=== PATIENT | female | born 2000 | race Caucasian/White ===

== ENCOUNTER 2023-12-31 20:00 | Emergency (ER) | payer OTHER, BC, SELFPAY ==
[2023-12-31 20:05] VITALS: BP 132/78; PULSE 105; RESP 20; TEMP 36.7; O2SAT 99; BMI 22.5
--- NOTE | 2023-12-31 20:05 | ED.GENADULT ---
HPI - General Adult General Date Seen: 12/31/23 Chief complaint: Extremity Pain/Injury, Upper Stated complaint: Right index finger pain Time Seen by Provider: 12/31/23 20:05 History of Present Illness HPI narrative: This is a pleasant 23-year-old generally healthy female presenting to the ER today for evaluation of an injury to her right hand 2nd digit. She is right-hand dominant. She works at [employer]. She accidentally got her PIP joint of her right index finger caught between a metal door when she was trying to close it at work today at roughly 4:00 p.m.. It was slammed hard in the door. She had onset of pain in the proximal phalanges and PIP joint at that time. She tried to armen tape her finger in keep working but it kept getting caught on things and getting bumped it is very painful. She took ibuprofen which is not helping very much yet. She only took 1 ibuprofen tablet, being unsure how much other meds we might want her to take. The finger has developed swelling and bruising around the PIP joint so she came here to the ER. She is concerned it is probably broken. No other injuries. Related Data Home Medications Medication Instructions Recorded Confirmed No Known Home Medications 12/31/23 12/31/23 Allergies Allergy/AdvReac Type Severity Reaction Status Date / Time No Known Drug Allergies Allergy Verified 12/31/23 20:08 Exam Narrative: Exam Narrative: Constitutional: Appears well-developed and well-nourished. Alert. Conversant. Non toxic. HENT: Head: Atraumatic. Nose: Nose normal. Mouth/Throat: Oral mucosa is clear and moist. no trismus. Eyes: Conjunctivae normal. EOM normal. Pupils equal, round, and reactive to light. No scleral icterus. Neck: Normal range of motion. Neck supple. No tracheal deviation present. Cardiovascular: Normal rate, regular rhythm. Symmetric radial artery pulses Pulmonary/Chest: Effort normal. No stridor. No respiratory distress. Musculoskeletal: RUE: Patient has ecchymosis and swelling affecting the proximal phalange and PIP joint of her right hand 2nd digit (index finger). She is holding that joint flexed at about 30?. Range of motion is limited by pain. She is not having any pain over the MCP joint area D IP joint. No associated numbness. No bleeding or laceration. Otherwise remainder of hand, thumb, wrist, and remainder of right upper extremity are normal. LUE: Normal range of motion. No tenderness. No deformity RLE: Normal range of motion. No edema. No tenderness. No deformity LLE: Normal range of motion. No edema. No tenderness. No deformity Neurological: Alert and oriented to person, place, and time. Normal strength. CN II-VII intact. No sensory deficit. GCS eye subscore is 4. GCS verbal subscore is 5. GCS motor subscore is 6. Normal coordination Skin: Skin is warm and dry. No rash noted. No pallor. Normal capillary refill. Psychiatric: Normal mood. Normal affect. Const: Vital Signs, click to edit/add: Vital Signs - 24 hr 12/31/23 20:05 12/31/23 20:26 Temperature 98.1 F 98.1 F Pulse Rate [Right Pulse Oximeter] 105 H Respiratory Rate 20 Blood Pressure [Ri ght Upper Arm] 132/78 Pulse Oximetry 99 Oxygen Delivery Me thod Room Air Course Vital Signs Vital signs: Initial Vital Signs Temperature 98.1 F 12/31/23 20:05 Temperature Source Temporal Artery Scan 12/31/23 20:05 Pulse Rate 105 H 12/31/23 20:05 Respiratory Rate 20 12/31/23 20:05 Blood Pressure 132/78 12/31/23 20:05 Blood Pressure Mean 96 12/31/23 20:05 Blood Pressure Position Sitting 12/31/23 20:05 Pulse Oximetry 99 12/31/23 20:05 Oxygen Delivery Method Room Air 12/31/23 20:05 Vital Signs Temperature 98.1 F 12/31/23 20:05 Pulse Rate 105 H 12/31/23 20:05 Respiratory Rate 20 12/31/23 20:05 Blood Pressure 132/78 12/31/23 20:05 Pulse Oximetry 99 12/31/23 20:05 Oxygen Delivery Method Room Air 12/31/23 20:05 Temperature 98.1 F 12/31/23 20:26 Pulse Rate 105 H 12/31/23 20:05 Respiratory Rate 20 12/31/23 20:05 Blood Pressure 132/78 12/31/23 20:05 Pulse Oximetry 99 12/31/23 20:05 Oxygen Delivery Method Room Air 12/31/23 20:05 Medications Administered Medications: Discontinued Medications Generic Name Dose Route Start Last Admin Trade Name Freq PRN Reason Stop Dose Admin Ibuprofen 600 mg 12/31/23 20:16 12/31/23 20:26 Ibuprofen 600 Mg Tablet PO 12/31/23 20:17 600 mg ONCE ONE Administration Medical Decision Making [facility] Narrative Medical decision making narrative: Generally healthy 23-year-old female presenting to the ER today with a work related injury to her right hand index finger. She accidentally smashed it in a metal door at work this afternoon. She presented with swelling, pain, ecchymosis involving the proximal phalanx and the PIP joint of that index finger. Fortunately she was neurovascularly intact. X-rays are obtained and fortunately negative for fracture. Suspect this probably represents contusion and sprain. Will place into a finger splint. Nonsteroidals or ibuprofen if needed for pain. Patient will pursue rest, ice, elevation at home. Work note to put her off work today and possibly tomorrow for discomfort. She can return to work with light duty (no lifting or grabbing with her right hand) for 7 days until improved. If not able to complete return to full duty after 70 she should be recheck by her medical provider. At this point no evidence for any associated laceration, compartment syndrome, neurovascular compromise. Discussed plan of care with patient and she is in agreement. Work note provided. Imaging Data xr finger: Attestation: I have reviewed the pertinent imaging results. My impression: no acute fracture Radiologist's impression: FINDINGS: Mild soft tissue swelling in the index finger. No fracture, dislocation, or radiopaque foreign body. Small incidental sesamoid adjacent to the 2nd metacarpal head. Discharge Plan Discharge Clinical Impression: Contusion of finger Patient Disposition: Home, Self-Care Condition: Stable Instructions: Contusion in Adults (ED) Additional Instructions: As we discussed, please see her doctor right away or return to the ER if you have any concerns especially worsening pain, numbness in your finger, worsening swelling, or any other problems. Please take to light duty at work for the next week until your improved. Avoid lifting or grabbing objects with her right hand. Wear the splint to protect your finger while you are up and around or at work until your finger is healed Prescriptions: No Action No Known Home Medications Follow Up/Referrals: Gregory Cash MD [Primary Care Provider] - Stand Alone Forms: [employer] Info Instructions
--- NOTE | 2023-12-31 20:16 | XR_ITS ---
Patient: DAVID FLETCHER Facility:?[facility] Patient ID:?[id number] Site Patient ID:?[id number]. Site :?[id number] Study:?XRay-Extremity Right 1ST DIGIT-12/31/2023 8:34:51 PM Ordering Physician:CHIQUIS Final Report: INDICATION: Finger caught between 2 metal or recent. TECHNIQUE: Three views of the right index finger. FINDINGS: Mild soft tissue swelling in the index finger. No fracture, dislocation, or radiopaque foreign body. Small incidental sesamoid adjacent to the 2nd metacarpal head. Dictated by Shayan Rose MD @ 12/31/2023 8:48:15 PM Signed by:?Shayan Rose MD @12/31/2023 8:48:15 PM (Electronic Signature)
[2023-12-31 20:26] VITALS: TEMP 36.7
[2023-12-31] MEDS: IBUPROFEN 600 MG TABLET PO (20:26)
[2023-12-31 21:44] VITALS: BP 125/69; PULSE 89; RESP 20; TEMP 36.7; O2SAT 99
[2023-12-31 21:45] VITALS: BP 125/69; PULSE 89; RESP 20; TEMP 36.7
== END 2023-12-31 21:45 | disposition home or self-care (01) ==
PROVIDERS: Emergency Provider Emergency Medicine; PCP Family Medicine
DX: S60.021A Contusion of right index finger without damage to nail, initial encounter (principal); W22.8XXA Striking against or struck by other objects, initial encounter; Y99.0 Civilian activity done for income or pay
CPT/HCPCS: 73140; 99282; 99283; A9270

== ENCOUNTER 2024-01-04 16:33 | Outpatient (CLI) | payer BC, SELFPAY | END 2024-01-04 16:34 | disposition home or self-care (01) | LOC: AMB 01-13 02:17 | PROVIDERS: PCP Family Medicine; Visit Provider Family Medicine | DX: R55 Syncope and collapse (principal) | CPT/HCPCS: A0998 ==

== ENCOUNTER 2024-01-17 16:46 | Outpatient (CLI) | payer BC, SELFPAY ==
--- NOTE | 2024-01-17 17:00 | US_ITS ---
Patient: DAVID FLETCHER Facility:?[facility] Patient ID:?[id number] Site Patient ID:?[id number]. Site :?2001 Study:?US-OB Pelvis TA/TV Pelvic US-01/17/2024 6:19:51 PM Ordering Physician:Teresita December Final Report: INDICATION: Pelvic and perineal pain, abnormal uterine bleeding. TECHNIQUE: Transabdominal and transvaginal pelvic ultrasound. Grayscale and duplex Doppler images. FINDINGS: Uterus is anteverted and measures 6.9 x 3.0 x 4.6 cm. Normal endometrial stripe thickness of 5 mm. Both ovaries appear normal and have normal color and spectral Doppler flow. No adnexal mass or free fluid. IMPRESSION: Normal pelvic ultrasound. Dictated by Shayan Rose MD @ 01/18/2024 11:02:42 AM Signed by:?Shayan Rose MD @01/18/2024 11:02:42 AM (Electronic Signature)
== END 2024-01-17 16:47 | disposition home or self-care (01) ==
LOC: US 16:47
PROVIDERS: PCP Family Medicine; Visit Provider Physician Assistant
DX: R10.2 Pelvic and perineal pain (principal); G89.29 Other chronic pain
CPT/HCPCS: 76830; 76856; 93976

== ENCOUNTER 2024-06-10 12:21 | Emergency (ER) | payer BC, SELFPAY ==
--- NOTE | 2024-06-10 12:25 | ED.GENADULT ---
HPI - General Adult General Time Seen by Provider: 12:25 Date Seen: 06/10/24 Chief complaint: Nausea/Vomiting Stated complaint: nausea/possibly Time Seen by Provider: 06/10/24 12:22 Source: patient, RN notes reviewed and old records reviewed Mode of arrival: ambulatory Limitations: no limitations History of Present Illness HPI narrative: 23-year-old female who presents today with nausea in concern. Your patient says she and several friends plate ? test roulette? in 1 of them had a positive test so they all retested in her test was positive. She is on oral control but says she frequently misses doses. Last period was at the end of April, she has irregular periods. She denies any vaginal bleeding, does have some mild lower abdominal cramping. Denies urinary symptoms. Does have some nausea and some vomiting during the morning but is able to generally tolerate food during the rest of the day. First . Related Data Previous Rx's ?Medication ?Instructions ?Recorded ondansetron 4 mg disintegrating 4 mg PO Q6H PRN nausea and 01/05/24 tablet vomiting #30 tabs norethindrone (contraceptive) 0.35 0.35 mg PO QDAY #84 tabs 01/12/24 mg tablet (Lilian) doxylamine succinate 25 mg tablet 25 mg PO QHS PRN #10 tabs 06/10/24 (Unisom (doxylamine)) ondansetron 4 mg disintegrating 4 mg PO Q6H PRN nausea and 06/10/24 tablet vomiting #30 tabs pyridoxine (vitamin B6) 25 mg 25 mg PO TID #30 tabs 06/10/24 tablet Allergies Allergy/AdvReac Type Severity Reaction Status Date / Time No Known Drug Allergies Allergy Verified 06/10/24 12:26 PFSH PFSH Family History (Updated 01/12/24 @ 10:27 by Robina Lombardi PA-C) Other Endometriosis Social History (Updated 01/12/24 @ 09:17 by Robina Lombardi PA-C) Narrative: Patient works at [employer]. Single. Nonsmoker. Alcohol use: 1-2 per week. No illicit drug use. Smoking Status: Never smoker Do you use any of these nicotine containing products: Vaping Products Second hand tobacco smoke exposure: No How often do you have a drink containing alcohol: 2-3 times a week How many standard drinks containing alcohol do you have on a typical day: 3 or 4 How often do you have six or more drinks on one occasion: Monthly AUDIT-C Alcohol total score: 6 Non-prescribed substance use: marijuana (any form) and crack/cocaine Exam Narrative: Exam Narrative: General: Well-developed and well-nourished, no acute distress Head: Atraumatic and normocephalic Eyes: Pupils are equal reactive, extraocular motions intact, conjunctiva clear ENT: External nose and ears are normal, posterior pharynx without erythema or exudate Neck: No midline cervical tenderness, full spontaneous range of motion the neck, trachea midline, no adenopathy Heart: Regular rate and rhythm no murmurs or thrills Lungs: Clear to auscultation bilaterally without wheezes or crackles Abdomen: Soft, nontender, nondistended with active bowel sounds Musculoskeletal: No tenderness, deformity, or edema Neurologic: Awake, alert, and oriented x3, no gross focal neurologic deficits, cranial nerves intact as tested Psych: Mood and affect are appropriate Skin: No rashes Const: Vital Signs, click to edit/add: Vital Signs - 24 hr 06/10/24 12:27 Temperature 98.3 F Pulse Rate [Pulse Oximeter] 87 Respiratory Rate 16 Blood Pressure [Ri ght Upper Arm] 124/69 Pulse Oximetry 100 Oxygen Delivery Me thod Room Air Course Course ED Course: Reviewed most recent primary care office visit from December 2023 for follow-up of multiple chronic problems, at that time was having some problems with her menstrual cycles as well. Patient presents today with concern. She notes she has had nausea and some vomiting in the mornings, notes a positive test at home. Denies vaginal bleeding or pelvic pain. On exam here, finally stable, no abdominal tenderness. Bedside ultrasound was performed and does not demonstrate in urine . Quantitative hCG will be performed. If this is below the discriminatory zone, patient can be discharged with outpatient follow-up in anticipatory guidance along with Unisom, vitamin B6, and Zofran. She has already started taking a vitamin. If above the discriminatory zone, ultrasound will need to evaluate for ectopic . Reevaluation(s) Time of Reevaluation #1: 13:51 Reevaluation #1: Labs independently interpreted by me with beta hCG of 80 consistent with very early . Anticipatory guidance given, no pelvic pain or vaginal bleeding, no indication for emergent ultrasound at this time. Has follow-up appointment in about 6 weeks, discussed return to emergency department precautions and patient is stable for discharge. Vital Signs Vital signs: Initial Vital Signs Temperature 98.3 F 06/10/24 12:27 Temperature Source Temporal Artery Scan 06/10/24 12:27 Pulse Rate 87 06/10/24 12:27 Respiratory Rate 16 06/10/24 12:27 Blood Pressure 124/69 06/10/24 12:27 Blood Pressure Mean 87 06/10/24 12:27 Blood Pressure Position High-Fowlers 06/10/24 12:27 Pulse Oximetry 100 06/10/24 12:27 Oxygen Delivery Method Room Air 06/10/24 12:27 Vital Signs Temperature 98.3 F 06/10/24 12:27 Pulse Rate 87 06/10/24 12:27 Respiratory Rate 16 06/10/24 12:27 Blood Pressure 124/69 06/10/24 12:27 Pulse Oximetry 100 06/10/24 12:27 Oxygen Delivery Method Room Air 06/10/24 12:27 Temperature 98.3 F 06/10/24 12:27 Pulse Rate 87 06/10/24 12:27 Respiratory Rate 16 06/10/24 12:27 Blood Pressure 124/69 06/10/24 12:27 Pulse Oximetry 100 06/10/24 12:27 Oxygen Delivery Method Room Air 06/10/24 12:27 Medical Decision Making Lab Data Labs: Lab Results 06/10/24 Range/Units 12:55 HCG, Quant 80.17 mIU/mL Discharge Plan Discharge Clinical Impression: Nausea and vomiting during , Positive test Patient Disposition: Home, Self-Care Condition: Stable Instructions: Nausea and Vomiting in (ED), (ED) Additional Instructions: Take medications for as prescribed Follow-up with spin tank tender as scheduled Frequent small meals will help with your nausea Activity Level: Activity as Tolerated Discharge Diet: Regular Prescriptions: New pyridoxine (vitamin B6) 25 mg tablet 25 mg PO TID Qty: 30 0RF Unisom (doxylamine) 25 mg tablet 25 mg PO QHS PRNQty: 10 0RF Rx Instructions: Take before going to sleep ondansetron 4 mg tablet,disintegrating 4 mg PO Q6H PRN (Reason: nausea and vomiting) Qty: 30 0RF No Action ondansetron 4 mg tablet,disintegrating 4 mg PO Q6H PRN (Reason: nausea and vomiting) Qty: 30 0RF norethindrone (contraceptive) [Lilian] 0.35 mg tablet 0.35 mg PO QDAY Qty: 84 3RF Hold Instructions: Follow Up/Referrals: Gregory Cash MD [Primary Care Provider] - Stand Alone Forms: [employer] Info Instructions
[2024-06-10 12:27] VITALS: BP 124/69; PULSE 87; RESP 16; TEMP 36.8; O2SAT 100; BMI 20.8
[2024-06-10 13:42] LABS: HCG Quantitative* 80.17 mIU/mL
== END 2024-06-10 14:01 | disposition home or self-care (01) ==
LOC: ED 13:19
PROVIDERS: Emergency Provider Family Medicine; PCP Family Medicine
DX: O21.9 Vomiting of pregnancy, unspecified (principal); Z32.01 Encounter for pregnancy test, result positive
CPT/HCPCS: 36415; 81001; 84702; 99283; 99284

== ENCOUNTER 2024-06-12 18:41 | Emergency (ER) | payer BC, SELFPAY ==
--- NOTE | 2024-06-12 18:49 | ED.GENADULT ---
HPI - General Adult General Time Seen by Provider: 18:49 Date Seen: 06/12/24 Chief complaint: Vaginal Bleeding Stated complaint: vaginal bleeding Time Seen by Provider: 06/12/24 18:48 Source: patient, RN notes reviewed and old records reviewed Mode of arrival: ambulatory Limitations: no limitations History of Present Illness HPI narrative: 23-year-old who presents today with vaginal bleeding, recently seen after having an incidentally noted positive test, at the initial visit 2 days ago no bleeding, no abdominal pain. Patient presents today with some lower abdominal pain and vaginal bleedings afternoon. Says it is some clots, not heavy. Denies back pain, lightheadedness or dizziness. Patient has irregular periods is so is unable to quantify if this bleeding is warranted. Her not patient Related Data Previous Rx's ?Medication ?Instructions ?Recorded ondansetron 4 mg disintegrating 4 mg PO Q6H PRN nausea and 01/05/24 tablet vomiting #30 tabs norethindrone (contraceptive) 0.35 0.35 mg PO QDAY #84 tabs 01/12/24 mg tablet (Lilian) doxylamine succinate 25 mg tablet 25 mg PO QHS PRN #10 tabs 06/10/24 (Unisom (doxylamine)) ondansetron 4 mg disintegrating 4 mg PO Q6H PRN nausea and 06/10/24 tablet vomiting #30 tabs pyridoxine (vitamin B6) 25 mg 25 mg PO TID #30 tabs 06/10/24 tablet Allergies Allergy/AdvReac Type Severity Reaction Status Date / Time No Known Drug Allergies Allergy Verified 06/10/24 12:26 PFSH PFSH Family History (Updated 01/12/24 @ 10:27 by Robina Lombardi PA-C) Other Endometriosis Social History (Updated 01/12/24 @ 09:17 by Robina Lombardi PA-C) Narrative: Patient works at [employer]. Single. Nonsmoker. Alcohol use: 1-2 per week. No illicit drug use. Smoking Status: Never smoker Do you use any of these nicotine containing products: Vaping Products Second hand tobacco smoke exposure: No How often do you have a drink containing alcohol: 2-3 times a week How many standard drinks containing alcohol do you have on a typical day: 3 or 4 How often do you have six or more drinks on one occasion: Monthly AUDIT-C Alcohol total score: 6 Non-prescribed substance use: marijuana (any form) and crack/cocaine Exam Narrative: Exam Narrative: General: Well-developed and well-nourished, no acute distress Head: Atraumatic and normocephalic Eyes: Pupils are equal reactive, extraocular motions intact, conjunctiva clear ENT: External nose and ears are normal, posterior pharynx without erythema or exudate Neck: No midline cervical tenderness, full spontaneous range of motion the neck, trachea midline, no adenopathy Heart: Regular rate and rhythm no murmurs or thrills Lungs: Clear to auscultation bilaterally without wheezes or crackles Abdomen: Soft, nontender, nondistended with active bowel sounds Musculoskeletal: No tenderness, deformity, or edema Neurologic: Awake, alert, and oriented x3, no gross focal neurologic deficits, cranial nerves intact as tested Psych: Mood and affect are appropriate Skin: No rashes Const: Vital Signs, click to edit/add: Vital Signs - 24 hr 06/12/24 19:01 Temperature 99.5 F Pulse Rate [Pulse Oximeter] 18 L Respiratory Rate 18 Blood Pressure [Ri ght Upper Arm] 127/76 Pulse Oximetry 97 Oxygen Delivery Me thod Room Air Course Course ED Course: Reviewed prior emergency department visit from 2 days ago, beta-hCG 80 which is well below the discriminatory range, bedside ultrasound did not demonstrate intrauterine findings. Patient presents today with vaginal bleeding. No abdominal pain. Ultrasound and labs ordered. Reevaluation(s) Time of Reevaluation #1: 19:55 Reevaluation #1: Ultrasound independently interpreted by me with no evidence for intrauterine or ectopic . Beta-hCG is pending. If this continues to drop, consider that vaginal bleeding the patient describes at the end of April was actually miscarriage from a very early during that month. In any case, patient is stable for discharge with outpatient follow-up with precinct police lieutenant to continue to trend beta-hCG and consider repeat ultrasound. Vital Signs Vital signs: Initial Vital Signs Temperature 99.5 F 06/12/24 19:01 Temperature Source Temporal Artery Scan 06/12/24 19:01 Pulse Rate 18 L 06/12/24 19:01 Respiratory Rate 18 06/12/24 19:01 Blood Pressure 127/76 06/12/24 19:01 Blood Pressure Mean 93 06/12/24 19:01 Pulse Oximetry 97 06/12/24 19:01 Oxygen Delivery Method Room Air 06/12/24 19:01 Vital Signs Temperature 99.5 F 06/12/24 19:01 Pulse Rate 18 L 06/12/24 19:01 Respiratory Rate 18 06/12/24 19:01 Blood Pressure 127/76 06/12/24 19:01 Pulse Oximetry 97 06/12/24 19:01 Oxygen Delivery Method Room Air 06/12/24 19:01 Temperature 99.5 F 06/12/24 19:01 Pulse Rate 18 L 06/12/24 19:01 Respiratory Rate 18 06/12/24 19:01 Blood Pressure 127/76 06/12/24 19:01 Pulse Oximetry 97 06/12/24 19:01 Oxygen Delivery Method Room Air 06/12/24 19:01 Medical Decision Making Lab Data Labs: Lab Results 06/12/24 Range/Units 19:59 WBC 12.19 H (4.50-11.00) K/uL RBC 4.52 (4.00-5.20) m/uL Hgb 13.6 (12.0-16.0) gm/dL Hct 41.5 (33.0-51.0) % MCV 92 (80-100) fL MCH 30 (26-34) pg MCHC 33 (32-36) gm/dL RDW Coeff of Leonid 12.4 (11.5-15.5) % Plt Count 205 (140-440) K/uL Neut % (Auto) 72.6 H (42.0-72.0) % Lymph % (Auto) 16.8 L (20-44) % [place] % (Auto) 8.2 (0.0-11.0) % Eos % (Auto) 1.8 (0.0-7.0) % Baso % (Auto) 0.5 (0.0-3.0) % Neut # (Auto) 8.80 H (1.7-7.0) K/uL Lymph # (Auto) 2.00 (0.90-2.90) K/uL [place] # (Auto) 1.00 H (0.00-0.90) K/UL Eos # (Auto) 0.20 (0.00-0.50) K/uL Baso # (Auto) 0.10 (0.00-0.30) K/uL Abs Immat Gran (auto) 0.00 (0.00-0.30) K/uL Imm/Tot Granulo (auto) 0.1 % HCG, Quant 47.56 mIU/mL Discharge Plan Discharge Clinical Impression: Miscarriage Patient Disposition: Home, Self-Care Condition: Stable Instructions: Miscarriage (ED) Additional Instructions: Call your precinct police lieutenant in the morning to discuss follow-up blood testing and possible follow-up ultrasound Activity Level: Activity as Tolerated Discharge Diet: Regular Prescriptions: No Action ondansetron 4 mg tablet,disintegrating 4 mg PO Q6H PRN (Reason: nausea and vomiting) Qty: 30 0RF norethindrone (contraceptive) [Lilian] 0.35 mg tablet 0.35 mg PO QDAY Qty: 84 3RF Hold Instructions: pyridoxine (vitamin B6) 25 mg tablet 25 mg PO TID Qty: 30 0RF Unisom (doxylamine) 25 mg tablet 25 mg PO QHS PRNQty: 10 0RF Rx Instructions: Take before going to sleep ondansetron 4 mg tablet,disintegrating 4 mg PO Q6H PRN (Reason: nausea and vomiting) Qty: 30 0RF Follow Up/Referrals: Gregory Cash MD [Primary Care Provider] - Stand Alone Forms: [employer] Info Instructions
--- NOTE | 2024-06-12 18:50 | CRLHL7_ITS ---
For Patients: As a result of the Century Cures Act, medical imaging exams and procedure reports are released immediately into your electronic medical record. You may view this report before your referring provider. If you have questions, please contact your health care provider. INDICATION: with bleeding. TECHNIQUE: Ultrasound OB pelvis transabdominal and transvaginal. Real-time jacinto-scale imaging of the pelvis was performed. COMPARISON: None. FINDINGS: No sign of intrauterine or ectopic . Endometrium is empty and measures 2 mm in thickness. No signs of hemorrhage. The ovaries are of normal size. There are no suspicious fluid collections noted in the cul-de-sac. IMPRESSION: No signs of intrauterine or ectopic viable . Dictated by Chito Chang MD @ 06/12/2024 8:28:40 PM (Electronically Signed)
[2024-06-12 19:01] VITALS: BP 127/76; PULSE 18; RESP 18; TEMP 37.5; O2SAT 97; BMI 20.8
[2024-06-12 20:04] LABS: Basophils Percent Auto 0.5 % (0.0-3.0); Eosinophils Percent Auto 1.8 % (0.0-7.0); Hematocrit 41.5 % (33.0-51.0); Hemoglobin* 13.6 gm/dL (12.0-16.0); Immature Granulocytes Pct Auto 0.1 %; Lymphocytes Percent Auto 16.8 % (20-44); Mean Corpuscular HGB Conc 33 gm/dL (32-36); Mean Corpuscular Hemoglobin 30 pg (26-34); Mean Corpuscular Volume 92 fL (80-100); Monocytes Percent Auto 8.2 % (0.0-11.0); Neutrophils Percent Auto 72.6 % (42.0-72.0); Platelet Count* 205 K/uL (140-440); RDW Coefficient of Variation % 12.4 % (11.5-15.5); Red Blood Count 4.52 m/uL (4.00-5.20); Slide Review Reflex No; White Blood Count* 12.19 K/uL (4.50-11.00)
[2024-06-12 20:38] LABS: HCG Quantitative* 47.56 mIU/mL
== END 2024-06-12 21:00 | disposition home or self-care (01) ==
LOC: ED 20:53
PROVIDERS: Emergency Provider Family Medicine; PCP Family Medicine
DX: O03.9 Complete or unspecified spontaneous abortion without complication (principal)
CPT/HCPCS: 36415; 76817; 84702; 85025; 99284

== ENCOUNTER 2024-10-21 02:17 | Emergency (ER) | payer BC, SELFPAY ==
--- OUTSIDE RECORDS SUMMARY | 2024-10-21 02:19 | XMS_ITS | Referral Summary ---
Author Organization [facility] Address [address] [place] [address] Care Team Providers Care Supervisor Paper Products Name Role Phone Unavailable Primary Care Provider Unavailabl e Source Comments Patient records contain information from all sites at [facility]. For routine questions regarding patient records, call [phone] during business hours, M-F 8:00 AM - 5:00 PM Central Time. Record requests for emergency care only can be directed to [phone] at any time.[facility] Allergies No known active allergies Medications cyclobenzaprine (FLEXERIL) 10 mg tablet 3 Active naproxen (NAPROSYN) 500 mg tabletIndicatio ns:Dysmenorrhea Take 1 tablet (500 mg total) by mouth 2 (two) times a day with meals. 20 tablet 3 Active etonogestreL (NEXPLANON) 68 mg subdermal implant 1 each by subdermal route continuously. Inserted 05/24/2023. Active Active Problems Problem Noted Date Diagnosed Date Dysmenorrhea 04/19/2023 Overview (05/24/2023): Pelvic pain that is always associated with vaginal bleeding. This has improved since initiating depo provera on 01/21/2023, though she continues to have some episodes of pain. She has had persistent spotting on the depo provera and her uterus was tender to palpation on her last exam, so will start doxycycline for 2 weeks for empiric treatment of chronic endometritis. Pain could be related to endometriosis, and if pain is persistent when she returns, consider Orilissa for management. Odor Vaginal 04/19/2023 Overview (04/19/2023): And persistent vaginal bleeding on depo provera. She was counseled that this unpredictable bleeding can continue for up to 6 months on Depo-Provera, after which time most women are amenorrheic. Testing was positive for bacterial vaginosis in the past, so vaginitis panel was sent today. She reports using feminine products about once a week to maintain the vaginal pH, and we discussed avoiding this to avoid infections. The vulvar care handout was provided today. 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 Recommend follow-up Pap only in 1 year. Resolved Problems Problem Noted Date Diagnosed Date Resolved Date Endometriosis 01/21/2023 04/19/2023 Management Contraception By Injection 01/21/2023 05/24/2023 Overview (04/19/2023): Initiated Depo-Provera 01/21/2023 for management of dysmenorrhea due to endometriosis, pain has improved some, so 2nd injection given on 04/19/2023. Follow-up in 11 weeks. Plan to reassess pelvic floor muscles at that time. Social History Tobacco Use Types Packs/Day Years Used Date Smoking Tobacco: Never Smokeless Tobacco: Never Tobacco Cessation:Counseling Given: Not Answered Alcohol Use Standard Drinks/Week Comments Yes 0 (1 standard drink = 0.6 oz pur e alcohol) Nutrition Answer Date Recorded Nutrition: EVOO Fat Source Unknown 12/01 Nutrition: Servings of Fruits/Vegetables per Day Not on file 12/01/2020 Dental Answer Date Recorded Dental: Regular Dentist Unknown 12/04/19 21 Comments No Sex and Gender Information Value Date Recorded Sex Assigned at Not on file Legal Sex Female 1:45 PM CDT Gender Identity Not on file Sexual Orientation Not on file Last Filed Vital Signs Vital Sign Reading Time Taken Comments Blood Pressure 104/68 05/24/2023 10:45 AM CDT Pulse - - Temperature - - Respiratory Rate - - Oxygen Saturation - - Inhaled Oxygen Concentration - - Weight 59.3 kg (130 lb 11.7 oz) 023 10:45 AM CDT Height - - Body Mass Index - - Plan of Treatment Not on file Medical Devices Implanted Type Area Branch Lending Manager Device Identifier Shelf Expiration Date Model / Serial / Lot Nexplanon-8/2 05/2023 Implanted:Qty : 1 on 05/24/2023 by Carey Villanueva APRN, C.N.P. Gynecologic Other Left: Arm [employer] 12/22/2024 / / [id number] Description:Nexplanon Procedures Procedure Name Priority Date/Time Associated Diagnosis Comments CHLAMYDIA/GONORRHOE AE AMPLIFIED RNA Routine 04/19/2023 2:10 PM CDT Odor Vaginal THINPREP SCREEN HPV REFLEX Routine 01/21/2023 10:46 AM CDT Pap Smear Examination from Last 3 Months or Most Recently Relevant to Health Maintenance Results * Chlamydia / Gonorrhoeae Amplified RNA (04/19/2023 2:10 PM CDT) Source Swab, Vagina 04/20/2023 6:05 AM CDT [facility] Chlamydia trachomatis amplified RNA Negative Negative 04/20/2023 6:05 AM CDT [facility] Source Swab, Vagina 04/20/2023 6:05 AM CDT [facility] Neisseria gonorrhoeae amplified RNA Negative Negative 04/20/2023 6:05 AM CDT [facility] Swab (Vagina) 04/19/2023 2:1 0 PM CDT 04/19/2023 10:21 PM CDT Taylor Orona M.D. LAB MICROBIOLOGY - NERAL ORDERABLES Final Result [facility] [address] [place] [address], [facility] [place] [address] * (ABNORMAL) ThinPrep Screen HPV Reflex (01/21/2023 10:46 AM CDT) (A) 01/27/2023 1:55 PM CDT [facility] Report electronically signed by Evgeny Richards MD I verify that I have examined all relevant slides/materials for the specimen(s) and rendered or confirmed the diagnosis. (A) 01/27/2023 1:55 PM CDT [facility] Gross Description Received specimen in a ThinPrep vial.(A) 01/27/2023 1:55 PM CDT [facility] Pap Test Source Cervical/Endocervi manny(A) 01/27/2023 1:55 PM CDT [facility] Clinical History 1st pap(A) 01/28/20 1:55 PM CDT [facility] Menstrual Status(LMP, PM, ) lmp(A) 01/27/2023 1:55 PM CDT [facility] Hormone Therapy/Contracep tives None/Not known(A) 01/27/2023 1:55 PM CDT [facility] Interpretation Cervical/Endocervi manny (ThinPrep): Satisfactory for Evaluation Epithelial Cell Abnormality Low grade squamous intraepithelial lesion (A) 01/27/2023 1:55 PM CDT [facility] Thin Prep Vial (Cervix/Endocerv ix) 01/21/2023 10:46 AM CDT 01/24/2023 8:01 AM CDT us Carey Villanueva APRN, C.N.P. LAB PAP PATHDX OR DERABLES Final Result [facility] [address] [place] [address], [facility] [address] [address] from Last 3 Months or Most Recently Relevant to Health Maintenance
--- OUTSIDE RECORDS SUMMARY | 2024-10-21 02:19 | XMS_ITS | Clinical Summary ---
Author Organization [facility] Address [place], [place] [address] Care Team Providers Care Tire Fabric Inspector Name Role Phone Gregory Cash MD Primary Care Provider Allergies No known active allergies Medications naproxen (NAPROSYN) 500 mg tabletIndications:T ension headache Take 1 Tablet (500 mg) by mouth every 12 hours if needed for Pain. 60 Tablet 3 Active norethindrone, Contraceptive, (MICRONOR, 28,) 0.35 mg tablet Take 0.35 mg by mouth once daily. 4 Active ondansetron (ZOFRAN ODT) 4 mg disintegrating tabletIndications:N ausea and vomiting, unspecified vomiting type Place 1 Tablet (4 mg) on the tongue every 8 hours if needed for Nausea/Vomi ting. 30 Tablet 4 Active topiramate (Topamax) 25 mg tabletIndications:M igraine aura occurring with and without headache Take 1 Tablet (25 mg) by mouth once daily. 90 Tablet 3 4 03/30/20 25 Active Active Problems Problem Noted Date Diagnosed Date Conjunctivitis unspecified 09/28/2012 Encounters Date Type Department Care Team Description 10/02/2024 4:46 AM CONTACT OFFICER - 10/02/2024 5:33 AM CONTACT OFFICER Emergency [facility] [address] [place] [address] Ryan Ro MD Influenza (Primary Dx); Chest pain, unspecified type Discharge Disposition: Home Self Care 10/02/2024 Travel from Last 3 Months Immunizations Name Administration Dates Next Due DTaP 09/01/2006, 4,04/03/2003,04/16,02/13/2002 Hepatitis A (Peds) 06/10/2014 Hepatitis B (Peds) 04/03/2003,04/16/2002, 002 Inactivated Polio Vaccine 09/01/2006,05/2003,04/16/2002,02/13 MENINGOCOCCAL VACCINE 2 VIAL 2MO-55YO (MENVEO) 06/10/2014 MMR 09/01/2006,08/20/2003 Pneumococcal conj 7-Valent (Prevnar 7) 3,04/03/2003,02/13/2002 Tdap 12/08/2023,06/10/2014 Varicella Vaccine 06/10/2014,08/20/2003 Family History Medical History Relation Name Comments Hypertension Maternal Grandmother Heart Disease Paternal Uncle Migraines No Family History Relation Name Status Comments Maternal Grandmother Paternal Uncle Social History Tobacco Use Types Packs/Day Years Used Date Smoking Tobacco: Never Passive Smoke Exposure: Yes Smokeless Tobacco: Never Tobacco Cessation:Counseling Given: Yes Comments:mom Alcohol Use Standard Drinks/Week Comments No 0 (1 standard drink = 0.6 oz pur e alcohol) PHQ-2 Answer Date Recorded PHQ-2 TOTAL SCORE 0 07/03/2021 Social Connections Answer Date Recorded Frequency of Communication with Friends and Fami ly Not on file 09/26/2021 Financial Resource Strain Answer Date R ecorded Difficulty of Paying Living Expenses Not on file 09/26/2021 Difficulty of Paying Living Expenses Not on file 09/26/2021 Interpersonal Safety Answer Date Record ed Are you being hit, kicked, p ushed or yelled at (see row info)? 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 Not on file Not on file Obstetrics History Last Filed Vital Signs Vital Sign Reading Time Taken Comments Blood Pressure 137/72 10/02/2024 5:20 AM CONTACT OFFICER Pulse 85 10/02/2024 5:20 AM CONTACT OFFICER Temperature 36.7 C (98.1 F) 10/02/2024 4:54 AM CONTACT OFFICER Respiratory Rate 16 10/02/2024 4:54 AM CONTACT OFFICER Oxygen Saturation 97% 10/02/2024 5:20 AM CONTACT OFFICER Inhaled Oxygen Concentration - - Weight 57.8 kg (127 lb 8 oz) 10/02/2024 4:54 AM CONTACT OFFICER Height 165.1 cm (5' 5) 10/02/2024 4:54 AM CONTACT OFFICER Body Mass Index 21.22 10/02/2024 4:54 AM CONTACT OFFICER Plan of Treatment Health Maintenance Due Date Last Done Comments HIV for age 15-65 2016 HPV series for age 9-26 (1 - 3-dose series) 2016 Chlamydia for age 16-24 2017 12/09/2016 Hepatitis C screening for age 18-79 12/14/2019 Depression screening for age 12+ 07/03/2022 07/03/2021, 07/03/2021, 07/12/2017, Additional history exists COVID-19 vaccine series ( season) 2024 03/27/2021 Influenza for age 9-49 05/27/2024 BMI (ht and wt on same day) for age 18+ 01/16/2025 01/17/2024, 06/06/2023, 02/27/2021 Pap test for age 21-65 01/11/2027 01/12/2024 Tetanus booster 12/07/2033 12/08/2023, 06/10/2014 Pneumococcal series for age 6-49 Aged Out 08/20/2003, 04/03/2003, 02/13/2002 No longer eligible based on patient's age to complete this topic Tdap Completed 12/08/2023, 06/10/2014 Procedures Procedure Name Priority Date/Time Associated Diagnosis Comments EKG 12 LEAD STAT 10/02/2024 5:07 AM CONTACT OFFICER INFLUENZA A/B PCR STAT 10/02/2024 4:5 3 AM CONTACT OFFICER COVID-19 MOLECULAR Today 10/02/2024 4: 53 AM CONTACT OFFICER REGRIND MILL OPERATOR THIN PREP PAP SCREEN IMAGED Routine 01/12/2024 8:43 AM CDT CHLAMYDIA TRACH PROBE Routine 12/09/2016 11:54 AM CDT Screening for chlamydial disease from Last 3 Months or Most Recently Relevant to Health Maintenance Results * EKG 12 LEAD (10/02/2024 5:07 AM CONTACT OFFICER) [facility] Interpretation Normal sinus rhythm Normal ECG No previous ECGs available BEYOND NOW Ventricular Rate 69 BPM BEYOND NOW Atrial Rate 69 BPM BEYOND NOW P-R Interval 154 ms BEYOND NOW QRS Duration 94 ms BEYOND NOW QT 404 ms BEYOND NOW QTc 432 ms BEYOND NOW P [place] 32 degrees BEYOND NOW R [place] 87 degrees BEYOND NOW T [place] 68 degrees BEYOND NOW 10/02/2024 5:07 AM CONTACT OFFICER 10/03/2024 11:59 AM CONTACT OFFICER Ryan Ro MD EKG ORD Final [facility] Performing Organization Address City/[facility] Co de Phone Number BEYOND NOW [place], [place] * COVID-19 MOLECULAR (10/02/2024 4:53 AM CONTACT OFFICER) [facility] COVID 19 ALLTOMMY MOLECULAR Not detected Not detected 10/02/2024 5:20 AM CONTACT OFFICER [facility] TESTING LABORATORY [facility] 10/02/2024 5:20 AM CONTACT OFFICER [facility] Comment:Specimen submitted t o [facility] for testing. Other SPECIMEN FROM NASOPHARYNGEAL STRUCTURE / Unknown Non-Blood / Unknown 10/02/2024 4:53 AM CONTACT OFFICER 10/02/2024 4:57 AM CONTACT OFFICER Ryan Ro MD MICROBIOLOGY Final R esult [facility] [address] [place] [id number] * (ABNORMAL) INFLUENZA A/B PCR (10/02/2024 4:53 AM CONTACT OFFICER) INFLUENZA A PCR Detected(A) 10/02/2024 5:20 AM CONTACT OFFICER [facility] INFLUENZA B PCR NOT Detected 10/02/2024 5:20 AM CONTACT OFFICER [facility] Other SPECIMEN FROM NASOPHARYNGEAL STRUCTURE / Unknown Non-Blood / Unknown 10/02/2024 4:53 AM CONTACT OFFICER 10/02/2024 4:57 AM CONTACT OFFICER Ryan Ro MD MICROBIOLOGY Final R esult [facility] [address] [place] [address] * (ABNORMAL) REGRIND MILL OPERATOR THIN PREP PAP SCREEN IMAGED (01/12/2024 8:43 AM CDT) Case Report Gynecologic Cytology Report Case: [id number] Authorizing Provider: Robina Lombardi PA-C Collected: 01/12/2024 0843 Ordering Location: [facility] Received: 01/13/2024 0837 First Screen: Maite Castellanos Pathologist: Jeremy Farnsworth MD Specimen: REGRIND MILL OPERATOR ThinPrep Vial Screening, Cervical 01/25/2024 4:21 PM CDT [facility] [employer] ENTRAL LABORATORY INTERPRETATION/ RESULT LOW GRADE SQUAMOUS INTRAEPITHELIAL LESION (LSIL)(A) (none) 01/25/2024 4:21 PM CDT [facility] IMEN ADEQUACY Satisfactory for evaluation No endocervical component seen 01/25/2024 4:21 PM CDT [facility] LAB[facility] HPV REQUEST HPV not requested 2023 4:21 PM CDT [employer] LABORATORY-C ENTRAL LABORATORY Date of LMP 01/25/2024 4:21 PM CDT [facility] [employer] ENTRAL LABORATORY Comment:unk Last Pap Date 01/21/2023 01/25/2024 4:21 PM CDT [facility] LAB[facility] Last Pap Result LSIL 4:21 PM CDT [facility] [employer] ENTRAL LABORATORY Abnormal Pap or Molina Bx in last 5 years No 01/25/2024 4:21 PM CDT [facility] ENTRIL LABORATORY Menstrual Status Regular Periods 01/25/2024 4:21 PM CDT [facility] Molina Bx Done Today No 01/25/2024 4:21 PM CDT [facility] ENTRIL LABORATORY Additional Information 01/25/2024 4:21 PM CDT [facility] ENTRIL LABORATORY Comment: Interpreted at [facility] - [address] [facility] [address], [place] [address] Automated Review Successful 01/25/2024 4:21 PM CDT [facility] ENTRIL LABORATORY Comment:Specimen processed s uccessfully by automated ice rink attendant device, ThinPrep Imaging System, [employer] Note The pap test is a screening technique, not a diagnostic procedure. It is used primarily to screen for squamous cancers and precursor lesions. Published studies have shown that it is subject to both false negative and false positive results. The pap test should not be used as the sole means to diagnose or exclude pre-malignant and malignant lesions. 01/25/2024 4:21 PM CDT [facility] ENTRIL LABORATORY Other (Cervical) 01/12/2024 8:43 AM CDT 01/13/2024 8:37 AM CDT Robina Celestino Lombardi PA-C PATHOLOGY/CYTOLOGY Final R esult Performing Organization Address [facility]/ZIP Co de Phone Number [facility] [address] [place] [address], [place] * CHLAMYDIA TRACH PROBE (12/09/2016 11:54 AM CDT) CHLAMYDIA PROBE Negative 12/10/2016 12:52 PM CDT [facility] TRAL LABORAT[facility] Other URINE SPECIMEN / Unknown Non-Blood / Unknown 12/09/2016 11:54 AM CDT 12/09/2016 11:54 AM CDT [facility] URRUTIA MICROBIOLOGY Final Resu lt [facility] LABORATORY-CENTRAL LABORATORY [address] [place] [address], from Last 3 Months or Most Recently Relevant to Health Maintenance Insurance [facility] [employer] CHOICE CARE Care Teams Tire Fabric Inspector Relationship Specialty Start Date End Date Gregory Cash MD PCP - General 07/15/09
--- OUTSIDE RECORDS SUMMARY | 2024-10-21 02:19 | XMS_ITS ---
Author Organization [facility] Address [address] [place] [address] Care Team Providers Care Newspaper Publisher Name Role Phone Unavailable Unavailable Unavailable Surgery Details Not on file Complications Check Surgery Details section. Procedure Estimated Blood Loss Check Surgery Details section. Procedure Findings Check Surgery Details section. Procedure Specimens Taken Check Surgery Details section.
--- OUTSIDE RECORDS SUMMARY | 2024-10-21 02:19 | XMS_ITS | Clinical Summary ---
Author Organization [facility] Address [address] [place] [address] Care Team Providers Care Thermograph Operator Name Role Phone Unavailable Primary Care Provider Unavailabl e Source Comments Patient records contain information from all sites at [facility]. For routine questions regarding patient records, call [phone] during business hours, M-F 8:00 AM - 5:00 PM Central Time. Record requests for emergency care only can be directed to [phone] time[address] Allergies No known active allergies Medications cyclobenzaprine [...] reassess pelvic floor muscles at that time. Family History Medical History Relation Name Comments Endometriosis Maternal Grandmother Endometriosis Mother Relation Name Status Comments Maternal Grandmother Mother Alive Social History Tobacco Use Types Packs/Day Years [...] Mass Index - - Plan of Treatment Health Maintenance Due Date Last Done Comments Hepatitis C Screening 2001 HPV Vaccines (1 - 3-dose series) 2016 Hepatitis B Vaccines (1 of 3 - 19+ 3-dose series) 2020 Cervical/Vaginal Cancer Screening 01/22/2024 01/21/2023 COVID-19 Vaccine (2 - season) 2024 03/27/2021 Influenza Vaccine (#1) 2024 Depression Screening (Annual PHQ-2) 09/26/2024 DTaP,Tdap,and Td Vaccines (8 - Td or Tdap) 12/07/2033 12/08/2023, 06/10/2014, 09/01/2006, Additional history exists Pneumococcal vaccine (0-49 years) Aged Out 08/20/2003, 04/03/2003, 02/13/2002 No longer eligible based on patient's age to complete this topic IPV Vaccines Completed 09/01/2006, 05/2003, 04/16/2002, Additional history exists Meningococcal Vaccine Aged Out 06/10/2014 No catrachita robert eligible based on patient's age to complete this topic Chlamydia and Gonorrhea Screening Discontinued 04/19/2023 Medical Devices Implanted Type Area Potato Peeling Machine Operator Device Identifier Shelf Expiration Date Model / Serial / Lot Nexplanon-8/2 05/2023 Implanted:Qty : 1 on 05/24/2023 by Carey Villanueva, NILAY, C.N.P. Gynecologic Other Left: Arm [facility] 12/22/2024 / / [id number] Description:Nexplanon Procedures Procedure Name Priority Date/Time Associated [...] CDT Taylor Orona M.D. LAB MICROBIOLOGY - NERIA ORDERABLES Final Result [facility] [address] [place] [address], [facility] [address] [address] * (ABNORMAL) ThinPrep Screen HPV Reflex (01/21/2023 [...] LAB PAP PATHDX OR DERABLES Final Result [facility] [address] [place] [address], [place] [facility] [address] [place] [address] from Last 3 Months or Most Recently Relevant to Health Maintenance
[2024-10-21 03:40] VITALS: BP 129/86; PULSE 84; RESP 16; TEMP 37.4; O2SAT 98; BMI 21.0
[2024-10-21 04:00] VITALS: O2SAT 98
--- NOTE | 2024-10-21 04:33 | CRLHL7_ITS ---
For Patients: As a result of the Century Cures Act, medical imaging exams and procedure reports are released immediately into your electronic medical record. You may view this report before your referring provider. If you have questions, please contact your health care provider. Indication: Left lateral chest pain. Technique: Two view(s) of the chest. Comparison: None available. Findings: Normal cardiomediastinal silhouette and pulmonary vasculature. Lungs are well inflated. No focal consolidation, pleural effusion or pneumothorax. No acute osseous abnormality. Impression: No acute cardiopulmonary abnormality identified. Dictated by Helen Warner MD @ 10/21/2024 5:00:07 AM (Electronically Signed)
--- NOTE | 2024-10-21 04:38 | ED_ITS ---
HPI - General Adult General Chief complaint: Rib Pain Stated complaint: left rib pain Time Seen by Provider: 10/21/24 04:28 Source: patient Mode of arrival: ambulatory Limitations: no limitations History of Present Illness HPI narrative: 23-year-old female presents the emergency department for evaluation of pain underneath the left axilla, upper lateral chest area. Sudden onset around 8:00 p.m.. No prior history of DVT or PE. Denies chance of , denies history of DVT or PE. Not on estrogen containing contraception. No fever, no trauma or injury. No difficulty moving arm, no numbness or tingling. Pain is worse with deep breath and movement. Tried taking ibuprofen a couple of hours prior to coming to ED with limited improvement. No prior history of similar symptoms. No fever, productive cough or history of heart issues. Past medical history benign per her report. She denies any long-term health problems. I do see a listing of chronic pelvic pain in her chart as well as migraines. No known drug allergies. Reports that she is no longer taking any prescription medications. ROS is notable for the rib symptoms only, otherwise denies times 12 systems. Related Data Previous Rx's ?Medication ?Instructions ?Recorded ondansetron 4 mg disintegrating 4 mg PO Q6H PRN nausea and 01/05/24 tablet vomiting #30 tabs norethindrone (contraceptive) 0.35 0.35 mg PO QDAY #84 tabs 01/12/24 mg tablet (Lilian) doxylamine succinate 25 mg tablet 25 mg PO QHS PRN #10 tabs 06/10/24 (Unisom (doxylamine)) ondansetron 4 mg disintegrating 4 mg PO Q6H PRN nausea and 06/10/24 tablet vomiting #30 tabs pyridoxine (vitamin B6) 25 mg 25 mg PO TID #30 tabs 06/10/24 tablet ketorolac 10 mg tablet 10 mg PO Q6H PRN pain 5 days #20 10/21/24 tabs Allergies Allergy/AdvReac Type Severity Reaction Status Date / Time No Known Drug Allergies Allergy Verified 06/10/24 12:26 [facility] PFS Medical History (Updated 10/21/24 @ 06:05 by Carey Gooden MD) No significant past medical history Surgical History (Updated 10/21/24 @ 04:44 by Harry Rocha RN) No significant past surgical history Family History Other Endometriosis Social History Narrative: Patient works at [employer]. Single. Nonsmoker. Alcohol use: 1-2 per week. No illicit drug use. Smoking Status: Never smoker Do you use any of these nicotine containing products: Vaping Products Second hand tobacco smoke exposure: No How often do you have a drink containing alcohol: 2-3 times a week How many standard drinks containing alcohol do you have on a typical day: 3 or 4 How often do you have six or more drinks on one occasion: Monthly AUDIT-C Alcohol total score: 6 Non-prescribed substance use: marijuana (any form) and crack/cocaine Exam Const: Vital Signs, click to edit/add: Vital Signs - 24 hr 10/21/24 03:40 10/21/24 04:40 Temperature 99.4 F 99.4 F Pulse Rate [Pulse Oximeter] 84 Respiratory Rate 16 Blood Pressure [Ri ght Upper Arm] 129/86 Pulse Oximetry 98 Oxygen Delivery Me thod Room Air Documenting provider has reviewed patient's vital signs: yes Other: Tearful but cooperative. Redirectable. Good historian. HENMT: Common normals: normocephalic, moist oral mucous membranes and oropharynx normal Head and scalp: normocephalic Face and sinus: normal facial exam Eye: Common normals: conjunctivae normal General eye: normal appearance of both eyes Conjunctiva: conjunctiva(e) normal Neck & C-Spine: Common normals: no lymphadenopathy General: normal visual inspection Chest: Common normals: inspection of chest normal and palpation of chest normal Resp: Common normals: normal respiratory effort, no use of accessory muscles and clear to auscultation bilaterally Effort & inspection: able to speak in complete sentences Auscultation: clear to auscultation bilaterally Cardio: Common normals: regular rate, regular rhythm, S1 normal heart sound, S2 normal heart sound and no murmurs Rate: regular rate Rhythm: regular rhythm Heart sounds: S1 normal and S2 normal GI: Common normals: Normal to inspection, nondistended, normoactive bowel sounds present, soft to palpation, non-tender and no hepatosplenomegaly Palpation: soft and no hepatosplenomegaly Back & Pelvis: Common normals: thoracic and lumbar spine normal to inspection Extremity: Common normals: normal to inspection and normal capillary refill Other: Normal range of motion left shoulder with no deformity or signs of injury. Neuro: Speech: speech normal Motor exam: strength 5/5 throughout and no movement abnormalities noted Psych: Attitude: engaged Activity/motor behavior: appropriate eye contact Insight: insight good Judgement: judgment good Skin: Common normals: no rashes or lesions noted General skin exam: no rashes or lesions noted Course Course ED Course: 23-year-old female with sudden onset left lateral chest pain. Differential diagnosis including pleurisy, could acute cardiac process, pneumonia, pulmonary embolism, musculoskeletal etiology, shingles. Initial exam is reassuring. No signs of tachycardia. Low-grade fevers present. Will obtain viral swabs, labs including D-dimer, CBC, CRP, chest x-ray. Will give Tylenol 1000 mg p.o. x1, EKG. Await findings. Reevaluation(s) Time of Reevaluation #1: 06:08 Reevaluation #1: Counseled patient on findings. Suspect pleurisy. Is feeling somewhat better after Tylenol. Normal labs, normal chest x-ray, normal viral swabs. Recommended a course of Toradol and time. Most likely viral induced. Alarm symptoms reviewed that would warrant ED presentation. Written instructions provided. Verbalizes understanding and agreement Vital Signs Vital signs: Initial Vital Signs Temperature 99.4 F 10/21/24 03:40 Temperature Source Temporal Artery Scan 10/21/24 03:40 Pulse Rate 84 10/21/24 03:40 Respiratory Rate 16 10/21/24 03:40 Blood Pressure 129/86 10/21/24 03:40 Blood Pressure Mean 100 10/21/24 03:40 Blood Pressure Position Sitting 10/21/24 03:40 Pulse Oximetry 98 10/21/24 03:40 Oxygen Delivery Method Room Air 10/21/24 03:40 Vital Signs Temperature 99.4 F 10/21/24 03:40 Pulse Rate 84 10/21/24 03:40 Respiratory Rate 16 10/21/24 03:40 Blood Pressure 129/86 10/21/24 03:40 Pulse Oximetry 98 10/21/24 03:40 Oxygen Delivery Method Room Air 10/21/24 03:40 Temperature 99.4 F 10/21/24 04:40 Pulse Rate 84 10/21/24 03:40 Respiratory Rate 16 10/21/24 03:40 Blood Pressure 129/86 10/21/24 03:40 Pulse Oximetry 98 10/21/24 03:40 Oxygen Delivery Method Room Air 10/21/24 03:40 Medications Administered Medications: Discontinued Medications Generic Name Dose Route Start Last Admin Trade Name Teresa PRN Reason Stop Dose Admin Acetaminophen 1,000 mg 10/21/24 04:33 10/21/24 04:40 Acetaminophen 500 Mg Tablet PO 10/21/24 04:34 1,000 mg ONCE ONE Administration Medical Decision Making Lab Data Lab results reviewed: Yes I reviewed the patient's lab results Lab results narrative: Labs reassuring Labs: Lab Results 10/21/24 10/21/24 Range/Units 04:45 05:00 WBC 10.58 (4.50-11.00) K/uL RBC 4.38 (4.00-5.20) m/uL Hgb 13.0 (12.0-16.0) gm/dL Hct 38.8 (33.0-51.0) % MCV 89 (80-100) fL MCH 30 (26-34) pg MCHC 34 (32-36) gm/dL RDW Coeff of Leonid 12.8 (11.5-15.5) % Plt Count 229 (140-440) K/uL Neut % (Auto) 69.3 (42.0-72.0) % Lymph % (Auto) 22.0 (20-44) % [place] % (Auto) 6.7 (0.0-11.0) % Eos % (Auto) 1.7 (0.0-7.0) % Baso % (Auto) 0.3 (0.0-3.0) % Neut # (Auto) 7.33 H (1.7-7.0) K/uL Lymph # (Auto) 2.33 (0.90-2.90) K/uL [place] # (Auto) 0.70 (0.00-0.90) K/UL Eos # (Auto) 0.18 (0.00-0.50) K/uL Baso # (Auto) 0.03 (0.00-0.30) K/uL Abs Immat Gran (auto) 0.00 (0.00-0.30) K/uL Imm/Tot Granulo (auto) 0.0 % D-Dimer Quant (PE/DVT) 0.07 (0.00-0.50) ug/ml Sodium 137 (135-149) mmol/L Potassium 3.4 L (3.6-5.1) mmol/L Chloride 104 (96-114) mmol/L Carbon Dioxide 25 (20-32) mmol/L Anion Gap 8 (7-15) mEq/L BUN 13 (5-24) mg/dL Creatinine 0.5 (0.5-1.5) mg/dL Estimated Creat Clear 164.29 Estimated GFR 136 ml/min Glucose 93 (60-115) mg/dL Calcium 9.5 (8.4-10.6) mg/dL C-Reactive Protein < 0.5 L (0.5-1.0) mg/dL SARS-CoV-2 (PCR) Negative SARS-CoV-2 (Negative) Influenza Type A (PCR) Negative PCR FLU A (Negative) Influenza Type B (PCR) Negative PCR FLU B (Negative) RSV (PCR) Negative PCR RSV (Negative) POC Troponin I 0.00 L (0.01-0.04) ng/ml Imaging Data Chest x-ray: Attestation: I have reviewed the pertinent imaging results. My impression: Normal chest x-ray Radiologist's impression: Impression: No acute cardiopulmonary abnormality identified. Dictated by Helen Warner MD @ 10/21/2024 5:00:07 AM Discharge Plan Discharge Clinical Impression: Chest pain, pleuritic Patient Disposition: Home, Self-Care Condition: Improved Instructions: Pleurisy (ED) Additional Instructions: As we discussed, there are no signs of any dangerous complication today. Her est x-ray is clear, there are no signs of heart attack, abnormal heart rhythm, blood clot, infection or any other dangerous condition. When I believe you have his condition called pleurisy which is an inflammation of the lining of the lungs. Unfortunately, there are a lot of nerve endings in this area and certain viral infections that affect the lungs mildly and may cause a mild cough are also attracted to this lining of the lungs and can cause significant sharp pain. I prescribed you course of anti-inflammatory pain medicine. This will not cause drowsiness. Is called ketorolac, take 1 pill up to every 6 hours as needed for discomfort. You may also use Tylenol which is a different family of medications 1000 mg every 6 hours also. You may alternate the 2 if the pain is very bothersome. It is also safe to use [id number] sleep aids like melatonin, Benadryl, Unisom if needed as well. There are no work or school restrictions. You should come back to the emergency department if you have severe shortness of breath, coughing up blood or other signs of severe weakness. It does take several weeks for symptoms to improve completely. Activity Level: No Restrictions Discharge Diet: Regular Prescriptions: New ketorolac 10 mg tablet 10 mg PO Q6H PRN (Reason: pain) 5 Days Qty: 20 0RF No Action ondansetron 4 mg tablet,disintegrating 4 mg PO Q6H PRN (Reason: nausea and vomiting) Qty: 30 0RF norethindrone (contraceptive) [Lilian] 0.35 mg tablet 0.35 mg PO QDAY Qty: 84 3RF pyridoxine (vitamin B6) 25 mg tablet 25 mg PO TID Qty: 30 0RF Unisom (doxylamine) 25 mg tablet 25 mg PO QHS PRNQty: 10 0RF Rx Instructions: Take before going to sleep ondansetron 4 mg tablet,disintegrating 4 mg PO Q6H PRN (Reason: nausea and vomiting) Qty: 30 0RF Follow Up/Referrals: Gregory Cash MD [Primary Care Provider] - Stand Alone Forms: [employer] Info Instructions
[2024-10-21 04:40] VITALS: TEMP 37.4
[2024-10-21] MEDS: ACETAMINOPHEN 500 MG TABLET 1000 MG PO (04:40)
[2024-10-21 05:07] LABS: Basophils Absolute Auto 0.03 K/uL (0.00-0.30); Basophils Percent Auto 0.3 % (0.0-3.0); Eosinophils Absolute Auto 0.18 K/uL (0.00-0.50); Eosinophils Percent Auto 1.7 % (0.0-7.0); Hematocrit 38.8 % (33.0-51.0); Lymphocytes Absolute Auto 2.33 K/uL (0.90-2.90); Mean Corpuscular HGB Conc 34 gm/dL (32-36); Mean Corpuscular Hemoglobin 30 pg (26-34); Mean Corpuscular Volume 89 fL (80-100); Monocytes Percent Auto 6.7 % (0.0-11.0); Neutrophils Absolute Auto 7.33 K/uL (1.7-7.0); Neutrophils Percent Auto 69.3 % (42.0-72.0); Platelet Count* 229 K/uL (140-440); RDW Coefficient of Variation % 12.8 % (11.5-15.5); Red Blood Count 4.38 m/uL (4.00-5.20); White Blood Count* 10.58 K/uL (4.50-11.00)
[2024-10-21 05:18] LABS: Slide Review Reflex No
--- OUTSIDE RECORDS SUMMARY | 2024-10-21 05:28 | XMS_ITS | Referral Summary ---
Author Organization [facility] Address [address] [place] [address] Care Team Providers Care Barrel Ribs Solderer Name Role Phone Unavailable Primary Care Provider Unavailabl e Source Comments Patient records contain information from all sites at [facility]. For routine questions regarding patient records, call [phone] during business hours, M-F 8:00 AM - 5:00 PM Central Time. Record requests for emergency care only can be directed to [phone] at any time.[facility] Allergies No known active allergies Medications cyclobenzaprine [...] on file Medical Devices Implanted Type Area Academic Support Director Device Identifier Shelf Expiration Date Model / Serial / Lot Nexplanon-8/2 05/2023 Implanted:Qty : 1 on 05/24/2023 by Carey Villanueva APRN, C.N.P. Gynecologic Other Left: Arm [employer] 12/22/2024 / / [id number] Description:Nexplanon Procedures Procedure Name Priority Date/Time Associated [...] LAB MICROBIOLOGY - NERAL ORDERABLES Final Result [facility] [address] [place] [address], [facility] [place] [address] * (ABNORMAL) ThinPrep Screen HPV Reflex (01/21/2023 [...] LAB PAP PATHDX OR DERABLES Final Result [facility] [address] [place] [address], [facility] [address] [address] from Last 3 Months or Most Recently Relevant to Health Maintenance
[2024-10-21 05:29] LABS: Chloride* 104 mmol/L (96-114); Sodium* 137 mmol/L (135-149)
--- OUTSIDE RECORDS SUMMARY | 2024-10-21 05:29 | XMS_ITS | Clinical Summary ---
Author Organization [facility] Address [address] [place] [address] Care Team Providers Care Sales Record Clerk Name Role Phone Unavailable Primary Care Provider Unavailabl e Source Comments Patient records contain information from all sites at [facility]. For routine questions regarding patient records, call [phone] during business hours, M-F 8:00 AM - 5:00 PM Central Time. Record requests for emergency care only can be directed to [phone] at any time.[facility] Allergies No known active allergies Medications cyclobenzaprine [...] Discontinued 04/19/2023 Medical Devices Implanted Type Area Flower Planter Device Identifier Shelf Expiration Date Model / Serial / Lot Nexplanon-8/2 05/2023 Implanted:Qty : 1 on 05/24/2023 by Carey Villanueva, NILAY, C.N.P. Gynecologic Other Left: Arm [facility] 12/22/2024 / / [id number] Description:Nexplanon Procedures Procedure Name Priority Date/Time Associated [...] CDT Taylor Orona M.D. LAB MICROBIOLOGY - NERVA ORDERABLES Final Result [facility] [address] [place] [address], [facility]TO [address] [address] * (ABNORMAL) ThinPrep Screen HPV Reflex (01/21/2023 [...] LAB PAP PATHDX OR DERABLES Final Result [facility] [address] [place] [address], [place] [facility] [address] [place] [address] from Last 3 Months or Most Recently Relevant to Health Maintenance
--- OUTSIDE RECORDS SUMMARY | 2024-10-21 05:29 | XMS_ITS ---
Author Organization [facility] Address [address] [place] [address] Care Team Providers Care Business Development Analyst Name Role Phone Unavailable Unavailable Unavailable Surgery Details Not on file Complications Check Surgery Details section. Procedure Estimated Blood Loss Check Surgery Details section. Procedure Findings Check Surgery Details section. Procedure Specimens Taken Check Surgery Details section.
--- OUTSIDE RECORDS SUMMARY | 2024-10-21 05:29 | XMS_ITS | Clinical Summary ---
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 file Not on file Not on file Obstetrics History Last Filed Vital Signs Vital Sign Reading Time Taken Comments Blood Pressure 137/72 10/02/2024 5:20 AM MANAGER OPERATING Pulse 85 10/02/2024 5:20 AM MANAGER OPERATING Temperature 36.7 C (98.1 F) 10/02/2024 4:54 AM MANAGER OPERATING Respiratory Rate 16 10/02/2024 4:54 AM MANAGER OPERATING Oxygen Saturation 97% 10/02/2024 5:20 AM MANAGER OPERATING Inhaled Oxygen Concentration - - Weight 57.8 kg (127 lb 8 oz) 10/02/2024 4:54 AM MANAGER OPERATING Height 165.1 cm (5' 5) 10/02/2024 4:54 AM MANAGER OPERATING Body Mass Index 21.22 10/02/2024 4:54 AM MANAGER OPERATING Plan of Treatment Health Maintenance Due Date [...] EKG 12 LEAD STAT 10/02/2024 5:07 AM MANAGER OPERATING INFLUENZA A/B PCR STAT 10/02/2024 4:5 3 AM MANAGER OPERATING COVID-19 MOLECULAR Today 10/02/2024 4: 53 AM MANAGER OPERATING MULTIGRAPH OPERATOR THIN PREP PAP SCREEN IMAGED Routine 01/12/2024 8:43 AM CDT CHLAMYDIA TRACH PROBE Routine 12/09/2016 11:54 AM CDT Screening for chlamydial disease from Last 3 Months or Most Recently Relevant to Health Maintenance Results * EKG 12 LEAD (10/02/2024 5:07 AM MANAGER OPERATING) [facility] Interpretation Normal sinus rhythm Normal ECG No previous ECGs available BEYOND NOW Ventricular Rate 69 BPM BEYOND NOW Atrial Rate 69 BPM BEYOND NOW P-R Interval 154 ms BEYOND NOW QRS Duration 94 ms BEYOND NOW QT 404 ms BEYOND NOW QTc 432 ms BEYOND NOW P [place] 32 degrees BEYOND NOW R [place] 87 degrees BEYOND NOW T [place] 68 degrees BEYOND NOW 10/02/2024 5:07 AM MANAGER OPERATING 10/03/2024 11:59 AM MANAGER OPERATING Ryan Ro MD EKG ORD Final [facility] Performing Organization Address City/[facility] Co de Phone Number BEYOND NOW [place], [place] * COVID-19 MOLECULAR (10/02/2024 4:53 AM MANAGER OPERATING) [facility] COVID 19 ALLTOMMY MOLECULAR Not detected Not detected 10/02/2024 5:20 AM MANAGER OPERATING [facility]ING [facility] 10/02/2024 5:20 AM MANAGER OPERATING [facility] Comment:Specimen submitted t o [facility] for testing. Other SPECIMEN FROM NASOPHARYNGEAL STRUCTURE / Unknown Non-Blood / Unknown 10/02/2024 4:53 AM MANAGER OPERATING 10/02/2024 4:57 AM MANAGER OPERATING Ryan Ro MD MICROBIOLOGY Final R esult [facility] [address] [place] [address] * (ABNORMAL) INFLUENZA A/B PCR (10/02/2024 4:53 AM MANAGER OPERATING) INFLUENZA A PCR Detected(A) 10/02/2024 5:20 AM MANAGER OPERATING [facility] INFLUENZA B PCR NOT Detected 10/02/2024 5:20 AM MANAGER OPERATING [facility] Other SPECIMEN FROM NASOPHARYNGEAL STRUCTURE / Unknown Non-Blood / Unknown 10/02/2024 4:53 AM MANAGER OPERATING 10/02/2024 4:57 AM MANAGER OPERATING Ryan Ro MD MICROBIOLOGY Final R esult [facility] [address] [place] [address] * (ABNORMAL) MULTIGRAPH OPERATOR THIN PREP PAP SCREEN IMAGED (01/12/2024 8:43 AM CDT) Case Report Gynecologic Cytology Report Case: [id number] Authorizing Provider: Robina Lombardi PA-C Collected: 01/12/2024 0843 Ordering Location: [facility] Received: 01/13/2024 0837 First Screen: Maite Castellanos Pathologist: Jeremy Farnsworth MD Specimen: MULTIGRAPH OPERATOR ThinPrep Vial Screening, Cervical 01/25/2024 4:21 PM CDT [facility] ENTRAL LABORATORY INTERPRETATION/ RESULT LOW GRADE SQUAMOUS INTRAEPITHELIAL LESION (LSIL)(A) (none) 01/25/2024 4:21 PM [facility]T [facility] IMEN ADEQUACY Satisfactory for evaluation No endocervical component seen 01/25/2024 4:21 PM CDT [facility]AL LAB[facility] HPV REQUEST HPV not requested 2023 4:21 PM CDT [facility]-C ENTRAL LABORATORY Date of LMP 01/25/2024 4:21 PM CDT [facility] ENTRAL LABORATORY Comment:unk Last Pap Date 01/21/2023 01/25/2024 4:21 PM CDT [facility] Last Pap Result LSIL 4:21 PM CDT [facility] ENTRAL LABORATORY Abnormal Pap or [place] Bx in last 5 years No 01/25/2024 4:21 PM CDT [facility] ENTRNJ LABORATORY Menstrual Status Regular Periods 01/25/2024 4:21 PM CDT [facility] LAB[facility] [place] Bx Done Today No 01/25/2024 4:21 PM CDT [facility] ENTRNJ LABORATORY Additional Information 01/25/2024 4:21 PM CDT [facility] ENTRNJ LABORATORY Comment: Interpreted at [facility] - [address] [facility] [address], [place] [address] Automated Review Successful 01/25/2024 4:21 PM CDT [facility] ENTRNJ LABORATORY Comment:Specimen processed s uccessfully by automated casting room operator device, ThinPrep Imaging System, [facility] Note The pap test is a [...] and malignant lesions. 01/25/2024 4:21 PM CDT [facility] ENTRNJ LABORATORY Other (Cervical) 01/12/2024 8:43 AM CDT 01/13/2024 8:37 AM CDT Robina Celestino Lombardi PA-C PATHOLOGY/CYTOLOGY Final R esult Performing Organization Address [facility]/ZIP Co de Phone Number [facility] [address] [place] [address], [place] * CHLAMYDIA TRACH PROBE (12/09/2016 11:54 AM CDT) CHLAMYDIA PROBE Negative 12/10/2016 12:52 PM CDT [facility] TRAL LABORATORY Other URINE SPECIMEN / Unknown Non-Blood / Unknown 12/09/2016 11:54 AM CDT 12/09/2016 11:54 AM CDT [facility] MICROBIOLOGY Final Resu lt [facility]-CENTRAL LABORATORY [address] [place] [address], from Last 3 Months or Most Recently Relevant to Health Maintenance Insurance [facility] [employer] C[employer] Care Teams Tank Driver Relationship Specialty Start Date End Date Gregory Cash MD PCP - General 07/15/09
[2024-10-21 05:30] LABS: Potassium* 3.4 mmol/L (3.6-5.1)
[2024-10-21 05:32] LABS: Creatinine* 0.5 mg/dL (0.5-1.5); Est. Creatinine Clearance* 164.29; Estimated Glomerular Filt Rate 136 ml/min
[2024-10-21 05:33] LABS: Anion Gap 8 mEq/L (7-15); Blood Urea Nitrogen* 13 mg/dL (5-24); Calcium* 9.5 mg/dL (8.4-10.6); Carbon Dioxide* 25 mmol/L (20-32); Glucose* 93 mg/dL (60-115)
[2024-10-21 05:39] LABS: C Reactive Protein* < 0.5 mg/dL (0.5-1.0); D Dimer Quantitative* 0.07 ug/ml (0.00-0.50)
[2024-10-21 05:58] LABS: PCR FLU A Negative PCR FLU A (Negative); PCR FLU B Negative PCR FLU B (Negative); PCR RSV Negative PCR RSV (Negative); SARS PCR* Negative SARS-CoV-2 (Negative)
[2024-10-21 06:13] VITALS: BP 118/74; PULSE 81; RESP 16; TEMP 37.4; O2SAT 98
[2024-10-21 06:14] VITALS: BP 118/74; PULSE 81; RESP 16; TEMP 37.4
== END 2024-10-21 06:15 | disposition home or self-care (01) ==
PROVIDERS: Emergency Provider Family Medicine; PCP Family Medicine
DX: R07.81 Pleurodynia (principal)
CPT/HCPCS: 36415; 71046; 80048; 84484; 85025; 85379; 86140; 87631; 93005; 94761; 99284; 99285; A9270

== ENCOUNTER 2024-10-31 14:02 | Outpatient (CLI) | payer BC, SELFPAY | END 2024-10-31 14:03 | disposition home or self-care (01) | PROVIDERS: PCP Family Medicine; Visit Provider Registered Nurse | DX: Z34.91 Encounter for supervision of normal pregnancy, unspecified, first trimester (principal); Z3A.08 8 weeks gestation of pregnancy | CPT/HCPCS: 76817; 86850; 86900; 86901 ==

== ENCOUNTER 2024-11-14 07:55 | Outpatient (CLI) | payer BC, SELFPAY ==
[2024-11-14 12:11] LABS: Chlamydia DNA Amplified* NOT DETECTED (No Detected); GC DNA Amplified* NOT DETECTED (No Detected)
== END 2024-11-14 07:56 | disposition home or self-care (01) ==
PROVIDERS: PCP Family Medicine; Visit Provider Registered Nurse
DX: Z34.91 Encounter for supervision of normal pregnancy, unspecified, first trimester (principal); Z12.4 Encounter for screening for malignant neoplasm of cervix; Z3A.10 10 weeks gestation of pregnancy
CPT/HCPCS: 82565; 82570; 83020; 83021; 84156; 84443; 84450; 84460; 84520; 85660; 86592; 86703; 86704; 86706; 86762; 86787; 86803; 86850; 86900; 86901; 87086; 87186; 87340; 87491; 87591; 87624; 87625; 88141; 88142

== ENCOUNTER 2024-11-26 14:22 | Outpatient (CLI) | payer BC, SELFPAY | END 2024-11-26 14:23 | disposition home or self-care (01) | LOC: NFLDREF 11-27 03:04 | PROVIDERS: PCP Family Medicine; Referring Provider Family Medicine; Visit Provider Registered Nurse | DX: Z34.91 Encounter for supervision of normal pregnancy, unspecified, first trimester (principal); Z3A.12 12 weeks gestation of pregnancy | CPT/HCPCS: 82570; 84156 ==

== ENCOUNTER 2024-12-02 15:04 | Emergency (ER) | payer BC, SELFPAY ==
[2024-12-02 15:14] VITALS: BP 122/71; PULSE 90; RESP 16; TEMP 36.7; O2SAT 100; BMI 20.5
--- NOTE | 2024-12-02 15:30 | ED.GENADULT ---
HPI - General Adult General Chief complaint: Nausea/Vomiting <Norman Venegas MD - Last Filed: 12/02/24 15:43> Stated complaint: 12 weeks , can't keep anything down <Norman Venegas MD - Last Filed: 12/02/24 15:43> Time Seen by Provider: 12/02/24 15:22 <Norman Venegas MD - Last Filed: 12/02/24 15:43> History of Present Illness HPI narrative: Patient is a 23-year-old woman who is 2 para 0 with a miscarriage approximately 7 months ago who presents today with nausea and vomiting. She has had no abdominal pain no fevers no chills no night sweats. The vomiting has been nonbloody and nonbilious. She has had no change in her bowels. She has had documentation in the OB office at their initial visit of an intrauterine . She is taking vitamins and has had no difficulty keeping the vitamins down. She is concerned due to the severity of her vomiting. <Norman Venegas MD - Last Filed: 12/02/24 15:43> Related Data Home medications: Home Medications ?Medication ?Instructions ?Recorded ?Confirmed docosahexaenoic acid 200 mg mg PO 11/14/24 11/28/24 capsule ( DHA) cetirizine 5 mg tablet 5 mg PO QDAY PRN 11/28/24 12/02/24 Previous Rx's ?Medication ?Instructions ?Recorded promethazine 25 mg tablet 12.5 - 25 mg (0.5 - 1 x 25 mg) PO 11/14/24 Q4-6H PRN nausea and vomiting #30 tabs cwexwisjtv-nqydvctgoccnl-agxflgng 1 tab PO Q6H PRN pain #10 tabs 11/19/24 50 mg-325 mg-40 mg tablet cephalexin 500 mg tablet 500 mg PO BID #10 tabs 11/27/24 levothyroxine 25 mcg tablet 25 mcg PO QDAY #30 tabs 11/28/24 ondansetron 4 mg disintegrating 4 mg PO Q6-8H PRN nausea and 11/28/24 tablet vomiting #30 tabs <Norman Venegas MD - Last Filed: 12/02/24 15:43> Allergies/adverse reactions: Allergies Allergy/AdvReac Type Severity Reaction Status Date / Time No Known Drug Allergies Allergy Verified 11/28/24 12:54 <Norman Venegas MD - Last Filed: 12/02/24 15:43> Review of Systems Status of ROS: Reports: 10 or more systems reviewed and unremarkable except as noted in History and below <Norman Venegas MD - Last Filed: 12/02/24 15:43> [facility] Medical History: Medical History Vaginal bleeding, abnormal ?N93.9 - Abnormal uterine and vaginal bleeding, unspecified (ICD-10) Nexplanon removal ?Z30.46 - Encounter for surveillance of implantable subdermal contraceptive (ICD-10) No significant past medical history <Norman Vengeas MD - Last Filed: 12/02/24 15:43> Surgical History: Surgical History No significant past surgical history <Norman Venegas MD - Last Filed: 12/02/24 15:43> Family History: Family History Other Endometriosis <Norman Venegas MD - Last Filed: 12/02/24 15:43> Social History: Social History Narrative: Patient works at [employer]. Single. Nonsmoker. Alcohol use: 1-2 per week. No illicit drug use. What is your current living situation?: I presently have a place to live Problems where you live: no known problems In the past 12 months, utilities in danger of being shut off: no In past 12 months, lack of transportation kept you from medical appts, meetings, work, or getting things needed for daily living: no In the past 12 mos, have been you worried that your food would run out before you had money to buy more?: never true In the past 12 mos, the food you bought just didn't last and you didn't have money to buy more?: never true Smoking Status: Never smoker Do you use any of these nicotine containing products: Vaping Products Second hand tobacco smoke exposure: No How often do you have a drink containing alcohol: 2-3 times a week How many standard drinks containing alcohol do you have on a typical day: 3 or 4 How often do you have six or more drinks on one occasion: Monthly AUDIT-C Alcohol total score: 6 Non-prescribed substance use: marijuana (any form) and crack/cocaine How often does anyone, including family, friends and others, physically hurt you: never How often does anyone, including family, friends and others, insult or talk down to you: never How often does anyone, including family, friends and others, threaten you with harm: never How often does anyone, including family, friends and others, scream or curse at you: never <Norman Venegas MD - Last Filed: 12/02/24 15:43> Exam Narrative: Exam Narrative: EXAM GENERAL: Patient appears comfortable and well. EYES: No scleral icterus. LYMPH: No supraclavicular or cervical lymphadenopathy. SKIN: Visible skin seen during exam normal or with benign process only. EXT: No dependent lower extremity pedal edema. HEART: Regular rate and rhythm with no murmurs, rubs, or gallops. LUNGS: Clear to auscultation bilaterally with no crackles or wheezes. ABD: Soft, non tender, non distended. PSYCH: Good eye contact, speech is not pressured. <Norman Venegas MD - Last Filed: 12/02/24 15:43> Const: Vital Signs, click to edit/add: Vital Signs - 24 hr 12/02/24 15:14 Temperature 98.0 F Pulse Rate [Pulse Oximeter] 90 Respiratory Rate 16 Blood Pressure [Ri ght Upper Arm] 122/71 Pulse Oximetry 100 Oxygen Delivery Me thod Room Air <Norman Venegas MD - Last Filed: 12/02/24 15:43> Vital Signs, click to edit/add: Vital Signs - 24 hr 12/02/24 15:14 Temperature 98.0 F Pulse Rate [Pulse Oximeter] 90 Respiratory Rate 16 Blood Pressure [Ri ght Upper Arm] 122/71 Pulse Oximetry 100 Oxygen Delivery Me thod Room Air <Augusto Patino DO - Last Filed: 12/02/24 16:59> Course Course ED Course: Labs collected IV fluids started IV Zofran started. <Norman Venegas MD - Last Filed: 12/02/24 15:43> Reevaluation(s) Reevaluation #1: Bedside ultrasound shows normal-appearing fetus in the uterus which has cardiac activity and is moving. <Norman Venegas MD - Last Filed: 12/02/24 15:43> Vital Signs Vital signs: Initial Vital Signs Temperature 98.0 F 12/02/24 15:14 Temperature Source Oral 12/02/24 15:14 Pulse Rate 90 12/02/24 15:14 Respiratory Rate 16 12/02/24 15:14 Blood Pressure 122/71 12/02/24 15:14 Blood Pressure Mean 88 12/02/24 15:14 Blood Pressure Position Sitting 12/02/24 15:14 Pulse Oximetry 100 12/02/24 15:14 Oxygen Delivery Method Room Air 12/02/24 15:14 Vital Signs Temperature 98.0 F 12/02/24 15:14 Pulse Rate 90 12/02/24 15:14 Respiratory Rate 16 12/02/24 15:14 Blood Pressure 122/71 12/02/24 15:14 Pulse Oximetry 100 12/02/24 15:14 Oxygen Delivery Method Room Air 12/02/24 15:14 Temperature 98.0 F 12/02/24 15:14 Pulse Rate 90 12/02/24 15:14 Respiratory Rate 16 12/02/24 15:14 Blood Pressure 122/71 12/02/24 15:14 Pulse Oximetry 100 12/02/24 15:14 Oxygen Delivery Method Room Air 12/02/24 15:14 <Norman Venegas MD - Last Filed: 12/02/24 15:43> Initial Vital Signs Temperature 98.0 F 12/02/24 15:14 Temperature Source Oral 12/02/24 15:14 Pulse Rate 90 12/02/24 15:14 Respiratory Rate 16 12/02/24 15:14 Blood Pressure 122/71 12/02/24 15:14 Blood Pressure Mean 88 12/02/24 15:14 Blood Pressure Position Sitting 12/02/24 15:14 Pulse Oximetry 100 12/02/24 15:14 Oxygen Delivery Method Room Air 12/02/24 15:14 Vital Signs Temperature 98.0 F 12/02/24 15:14 Pulse Rate 90 12/02/24 15:14 Respiratory Rate 16 12/02/24 15:14 Blood Pressure 122/71 12/02/24 15:14 Pulse Oximetry 100 12/02/24 15:14 Oxygen Delivery Method Room Air 12/02/24 15:14 Temperature 98.0 F 12/02/24 15:14 Pulse Rate 90 12/02/24 15:14 Respiratory Rate 16 12/02/24 15:14 Blood Pressure 122/71 12/02/24 15:14 Pulse Oximetry 100 12/02/24 15:14 Oxygen Delivery Method Room Air 12/02/24 15:14 <Augusto Patino DO - Last Filed: 12/02/24 16:59> Medications Administered Medications: Generic Name Dose Route Start Last Admin Trade Name Freq PRN Reason Stop Dose Admin Ondansetron HCl 4 mg 12/02/24 15:34 12/02/24 15:44 Ondansetron 2 Mg/Ml Inj IVP 4 mg ONCE PRN Administration Discontinued Medications Generic Name Dose Route Start Last Admin Trade Name Freq PRN Reason Stop Dose Admin Sodium Chloride 1,000 mls @ 1,000 mls/hr 12/02/24 15:30 12/02/24 16:25 0.9 % Sodium Chloride 1000 Ml IV 12/02/24 16:29 Infused .Q1H BRUCE Infusion <Norman Venegas MD - Last Filed: 12/02/24 15:43> Generic Name Dose Route Start Last Admin Trade Name Freq PRN Reason Stop Dose Admin Ondansetron HCl 4 mg 12/02/24 15:34 12/02/24 15:44 Ondansetron 2 Mg/Ml Inj IVP 4 mg ONCE PRN Administration Discontinued Medications Generic Name Dose Route Start Last Admin Trade Name Freq PRN Reason Stop Dose Admin Sodium Chloride 1,000 mls @ 1,000 mls/hr 12/02/24 15:30 12/02/24 16:25 0.9 % Sodium Chloride 1000 Ml IV 12/02/24 16:29 Infused .Q1H BRUCE Infusion <Augusto Patino DO - Last Filed: 12/02/24 16:59> Medical Decision Making MDM Narrative Medical decision making narrative: Patient signed out to me pending lab work. CBC and BMP showed no concerning abnormalities. She is RSV positive. Fluids were finished and she is feeling better and feels safe for discharge. Does not require any further nausea prescriptions. She states she has medication at home she can take. Will be discharged at this time. She is agreeable to this plan. <Augusto Patino, DO - Last Filed: 12/02/24 16:59> Lab Data Labs: Lab Results 12/02/24 12/02/24 Range/Units 15:20 15:35 WBC 8.64 (4.50-11.00) K/uL RBC 4.23 (4.00-5.20) m/uL Hgb 12.8 (12.0-16.0) gm/dL Hct 37.8 (33.0-51.0) % MCV 89 (80-100) fL MCH 30 (26-34) pg MCHC 34 (32-36) gm/dL RDW Coeff of Leonid 12.5 (11.5-15.5) % Plt Count 180 (140-440) K/uL Neut % (Auto) 79.0 H (42.0-72.0) % Lymph % (Auto) 14.1 L (20-44) % [place] % (Auto) 4.9 (0.0-11.0) % Eos % (Auto) 0.8 (0.0-7.0) % Baso % (Auto) 0.2 (0.0-3.0) % Neut # (Auto) 6.80 (1.7-7.0) K/uL Lymph # (Auto) 1.20 (0.90-2.90) K/uL [place] # (Auto) 0.40 (0.00-0.90) K/UL Eos # (Auto) 0.07 (0.00-0.50) K/uL Baso # (Auto) 0.02 (0.00-0.30) K/uL Abs Immat Gran (auto) 0.09 (0.00-0.30) K/uL Imm/Tot Granulo (auto) 1.0 % Sodium 135 (135-149) mmol/L Potassium 3.5 L (3.6-5.1) mmol/L Chloride 103 (96-114) mmol/L Carbon Dioxide 23 (20-32) mmol/L Anion Gap 9 (7-15) mEq/L BUN 8 (5-24) mg/dL Creatinine 0.4 L (0.5-1.5) mg/dL Estimated Creat Clear 194.30 Estimated GFR 143 ml/min Glucose 83 (60-115) mg/dL Calcium 8.8 (8.4-10.6) mg/dL Total Bilirubin 0.7 (0.1-1.5) mg/dL AST 17 (12-35) U/L ALT 12 (4-35) U/L Alkaline Phosphatase 31 L (40-150) U/L Total Protein 6.7 (6.0-8.3) g/dL Albumin 4.0 (3.3-5.0) g/dL SARS-CoV-2 (PCR) Negative SARS-CoV-2 (Negative) Influenza Type A (PCR) Negative PCR FLU A (Negative) Influenza Type B (PCR) Negative PCR FLU B (Negative) RSV (PCR) POSITIVE PCR RSV A (Negative) <Norman Venegas MD - Last Filed: 12/02/24 15:43> Lab Results 12/02/24 12/02/24 Range/Units 15:20 15:35 WBC 8.64 (4.50-11.00) K/uL RBC 4.23 (4.00-5.20) m/uL Hgb 12.8 (12.0-16.0) gm/dL Hct 37.8 (33.0-51.0) % MCV 89 (80-100) fL MCH 30 (26-34) pg MCHC 34 (32-36) gm/dL RDW Coeff of Leonid 12.5 (11.5-15.5) % Plt Count 180 (140-440) K/uL Neut % (Auto) 79.0 H (42.0-72.0) % Lymph % (Auto) 14.1 L (20-44) % [place] % (Auto) 4.9 (0.0-11.0) % Eos % (Auto) 0.8 (0.0-7.0) % Baso % (Auto) 0.2 (0.0-3.0) % Neut # (Auto) 6.80 (1.7-7.0) K/uL Lymph # (Auto) 1.20 (0.90-2.90) K/uL [place] # (Auto) 0.40 (0.00-0.90) K/UL Eos # (Auto) 0.07 (0.00-0.50) K/uL Baso # (Auto) 0.02 (0.00-0.30) K/uL Abs Immat Gran (auto) 0.09 (0.00-0.30) K/uL Imm/Tot Granulo (auto) 1.0 % Sodium 135 (135-149) mmol/L Potassium 3.5 L (3.6-5.1) mmol/L Chloride 103 (96-114) mmol/L Carbon Dioxide 23 (20-32) mmol/L Anion Gap 9 (7-15) mEq/L BUN 8 (5-24) mg/dL Creatinine 0.4 L (0.5-1.5) mg/dL Estimated Creat Clear 194.30 Estimated GFR 143 ml/min Glucose 83 (60-115) mg/dL Calcium 8.8 (8.4-10.6) mg/dL Total Bilirubin 0.7 (0.1-1.5) mg/dL AST 17 (12-35) U/L ALT 12 (4-35) U/L Alkaline Phosphatase 31 L (40-150) U/L Total Protein 6.7 (6.0-8.3) g/dL Albumin 4.0 (3.3-5.0) g/dL SARS-CoV-2 (PCR) Negative SARS-CoV-2 (Negative) Influenza Type A (PCR) Negative PCR FLU A (Negative) Influenza Type B (PCR) Negative PCR FLU B (Negative) RSV (PCR) POSITIVE PCR RSV A (Negative) <Augusto Patino DO - Last Filed: 12/02/24 16:59> Discharge Plan Discharge Clinical Impression: Hyperemesis gravidarum <Norman Venegas MD - Last Filed: 12/02/24 15:43> Patient Disposition: Home, Self-Care <Norman Venegas MD - Last Filed: 12/02/24 15:43> Condition: Stable <Norman Venegas MD - Last Filed: 12/02/24 15:43> Instructions: Hyperemesis Gravidarum (ED) <Norman Venegas MD - Last Filed: 12/02/24 15:43> Additional Instructions: Make sure to take your home nausea medication as soon as you start to feel nauseated. Return for new or worsening symptoms. <Norman Venegas MD - Last Filed: 12/02/24 15:43> Prescriptions: No Action cetirizine 5 mg tablet 5 mg PO QDAY PRN ondansetron 4 mg tablet,disintegrating 4 mg PO Q6-8H PRN (Reason: nausea and vomiting) Qty: 30 0RF levothyroxine 25 mcg tablet 25 mcg PO QDAY Qty: 30 3RF DHA 200 mg capsule PO promethazine 25 mg tablet 12.5 - 25 mg PO Q4-6H PRN (Reason: nausea and vomiting) Qty: 30 0RF gnzpvtfpho-mxyhnyfgescnu-hmfs 50-325-40 mg tablet 1 tab PO Q6H PRN (Reason: pain) Qty: 10 0RF cephalexin 500 mg tablet 500 mg PO BID Qty: 10 0RF <Norman Venegas MD - Last Filed: 12/02/24 15:43> Follow Up/Referrals: Gregory Cash MD [Primary Care Provider] - <Norman Venegas MD - Last Filed: 12/02/24 15:43> Stand Al[facility] <Norman Venegas MD - Last Filed: 12/02/24 15:43>
--- OUTSIDE RECORDS SUMMARY | 2024-12-02 15:37 | XMS_ITS | Clinical Summary ---
Author Organization [employer] Address [address] [place] [id number] Care Team Providers Care Customs Entry Writer Name Role Phone Gregory Cash MD Primary [...] Encounters Date Type Department Care Team Description 10/31/2024 Orders Only [facility] Scanner 1 scan: (1-Ord) [facility], OB TRANSVAGINAL, 10/31/2024 10/21/[address] [facility] Scanner 1 scan: (1-Ord) [facility], CHEST 2 VIEW, 10/21/2024 10/02/2024 4:46 AM FINAL DRESSING CUTTER - 10/02/2024 5:33 AM FINAL DRESSING CUTTER Emergency [facility] [address] [place] [address] Ryan Ro MD Influenza (Primary Dx); Chest pain, unspecified type Discharge Disposition: Home Self Care 10/02/2024 Travel from Last 3 Months Immunizations Immunization Administration Dates Next Due DTaP 09/01/2006, 4,04/03/2003,04/16,02/13/2002 [...] on file Legal Sex Female 7:41 AM FINAL DRESSING CUTTER Gender Identity Not on file Sexual Orientation Not on file 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 file Not on file Not on file Obstetrics History Last Filed Vital Signs Vital Sign Reading Time Taken Comments Blood Pressure 137/72 10/02/2024 5:20 AM FINAL DRESSING CUTTER Pulse 85 10/02/2024 5:20 AM FINAL DRESSING CUTTER Temperature 36.7 C (98.1 F) 10/02/2024 4:54 AM FINAL DRESSING CUTTER Respiratory Rate 16 10/02/2024 4:54 AM FINAL DRESSING CUTTER Oxygen Saturation 97% 10/02/2024 5:20 AM FINAL DRESSING CUTTER Inhaled Oxygen Concentration - - Weight 57.8 kg (127 lb 8 oz) 10/02/2024 4:54 AM FINAL DRESSING CUTTER Height 165.1 cm (5' 5) 10/02/2024 4:54 AM FINAL DRESSING CUTTER Body Mass Index 21.22 10/02/2024 4:54 AM FINAL DRESSING CUTTER Plan of Treatment Health Maintenance Due Date Last Done Comments HIV for age 15-65 2016 HPV series for age 9-26 (1 - 3-dose series) 2016 Chlamydia for age 16-24 2017 12/09/2016 Hepatitis C screening for age 18-79 12/14/2019 Depression screening for age 12+ 07/03/2022 07/03/2021, 07/03/2021, 07/12/2017, Additional history exists (IA) Influenza for age 9-49 05/27/2024 COVID-19 vaccine series ( season) 2024 03/27/2021 BMI (ht and wt on same day) for age 18+ 01/16/2025 01/17/2024, 06/06/2023, 02/27/2021 Pap test for age 21-65 01/11/2027 01/12/2024 Tetanus booster 12/07/2033 12/08/2023, 06/10/2014 Pneumococcal series for age 6-49 Aged Out 08/20/2003, 04/03/2003, 02/13/2002 No longer eligible based on patient's age to complete this topic Tdap Completed 12/08/2023, 06/10/2014 Procedures Procedure Name Priority Date/Time Associated Diagnosis Comments SCAN-ULTRASOUND REPORT 10/31/2024 12:00 AM FINAL DRESSING CUTTER SCAN-RADIOLOGY REPORT 10/21/2024 12:00 AM FINAL DRESSING CUTTER EKG 12 LEAD STAT 10/02/2024 5:07 AM FINAL DRESSING CUTTER INFLUENZA A/B PCR STAT 10/02/2024 4:5 3 AM FINAL DRESSING CUTTER COVID-19 MOLECULAR Today 10/02/2024 4: 53 AM FINAL DRESSING CUTTER GRANT ADMINISTRATOR THIN PREP PAP SCREEN IMAGED Routine 01/12/2024 8:43 AM CDT CHLAMYDIA TRACH PROBE Routine 12/09/2016 11:54 AM CDT Screening for chlamydial disease from Last 3 Months or Most Recently Relevant to Health Maintenance Results * SCAN-ULTRASOUND REPORT (10/31/2024 12:00 AM FINAL DRESSING CUTTER) Anatomical Region Laterality Modality Other us Scanner OTHER Final Result * SCAN-RADIOLOGY REPORT (10/21/2024 12:00 AM FINAL DRESSING CUTTER) Anatomical Region Laterality Modality Other us Scanner OTHER Final Result * EKG 12 LEAD (10/02/2024 5:07 AM FINAL DRESSING CUTTER) Interpretation Normal sinus rhythm Normal ECG No previous ECGs available BEYOND NOW Ventricular Rate 69 BPM BEYOND NOW Atrial Rate 69 BPM BEYOND NOW P-R Interval 154 ms BEYOND NOW QRS Duration 94 ms BEYOND NOW QT 404 ms BEYOND NOW QTc 432 ms BEYOND NOW P [place] 32 degrees BEYOND NOW R [place] 87 degrees BEYOND NOW T [place] 68 degrees BEYOND NOW 10/02/2024 5:07 AM FINAL DRESSING CUTTER 10/03/2024 11:59 AM FINAL DRESSING CUTTER us Ryan Ro MD EKG ORD Final R esult BEYOND NOW [place], [place] * COVID-19 MOLECULAR (10/02/2024 4:53 AM FINAL DRESSING CUTTER) Pathologist [facility] COVID 19 [place] MOLECULAR Not detected Not detected 10/02/2024 5:20 AM FINAL DRESSING CUTTER [facility] 10/02/2024 5:20 AM FINAL DRESSING CUTTER [facility] Comment:Specimen submitted t o [facility] for testing. Other SPECIMEN FROM NASOPHARYNGEAL STRUCTURE / Unknown Non-Blood / Unknown 10/02/2024 4:53 AM FINAL DRESSING CUTTER 10/02/2024 4:57 AM FINAL DRESSING CUTTER Ryan Ro MD MICROBIOLOGY Final R esult [facility] [address] [place] [address] * (ABNORMAL) INFLUENZA A/B PCR (10/02/2024 4:53 AM FINAL DRESSING CUTTER) Pathologist [facility] INFLUENZA A PCR Detected(A) 10/02/2024 5:20 AM FINAL DRESSING CUTTER [facility] INFLUENZA B PCR NOT Detected 10/02/2024 5:20 AM FINAL DRESSING CUTTER [facility] Other SPECIMEN FROM NASOPHARYNGEAL STRUCTURE / Unknown Non-Blood / Unknown 10/02/2024 4:53 AM FINAL DRESSING CUTTER 10/02/2024 4:57 AM FINAL DRESSING CUTTER Ryan Ro MD MICROBIOLOGY Final R esult [facility] [address] [place] [address] * (ABNORMAL) GRANT ADMINISTRATOR THIN PREP PAP SCREEN IMAGED (01/12/2024 8:43 AM CDT) Pathologist [facility] Case Report Gynecologic Cytology Report Case: [id number] Authorizing Provider: Robina Lombardi PA-C Collected: 01/12/2024 0843 Ordering Location: [facility] Received: 01/13/2024 0837 First Screen: Maite Castellanos Pathologist: Jeremy Farnsworth MD Specimen: GRANT ADMINISTRATOR ThinPrep Vial Screening, Cervical 01/25/2024 4:21 PM CDT [facility] INTERPRETATION/ RESULT LOW GRADE SQUAMOUS INTRAEPITHELIAL LESION (LSIL)(A) (none) 01/25/2024 4:21 PM T [facility] IMEN ADEQUACY Satisfactory for evaluation No endocervical component seen 01/25/2024 4:21 PM CDT [facility] HPV REQUEST HPV not requested 2023 4:21 PM CDT [facility] Date of LMP 01/25/2024 4:21 PM CDT [facility] Comment:unk Last Pap Date 01/21/2023 01/25/2024 4:21 PM CDT [facility] Last Pap Result LSIL 4:21 PM CDT [facility] Abnormal Pap or [place] Bx in last 5 years No 01/25/2024 4:21 PM CDT [facility] Menstrual Status Regular Periods 01/25/2024 4:21 PM CDT [facility] [place] Bx Done Today No 01/25/2024 4:21 PM T [facility] Additional Information 01/25/2024 4:21 PM CDT [facility] Comment: Interpreted at [facility] Laboratory - [address] [address] Automated Review Successful 01/25/2024 4:21 PM T [facility] Comment:Specimen processed s uccessfully by automated liquor store manager device, ThinPrep Imaging System, [employer] Note The pap test is a screening technique, not a diagnostic procedure. It is used primarily to screen for squamous cancers and precursor lesions. Published studies have shown that it is subject to both false negative and false positive results. The pap test should not be used as the sole means to diagnose or exclude pre-malignant and malignant lesions. 01/25/2024 4:21 PM T [facility] Other (Cervical) 01/12/2024 8:43 AM CDT 01/13/2024 8:37 AM CDT us Robina Lombardi PA-C PATHOLOGY/CYTOLOGY Final R esult [facility] [address] [place] [address], [place] * CHLAMYDIA TRACH PROBE (12/09/2016 11:54 AM CDT) CHLAMYDIA PROBE Negative 12/10/2016 12:52 PM CDT [facility] Other URINE SPECIMEN / Unknown Non-Blood / Unknown 12/09/2016 11:54 AM CDT 12/09/2016 11:54 AM CDT us Skye URRUTIA MICROBIOLOGY Final Resu lt [facility] [address] [place] [address], [place] from Last 3 Months or Most Recently Relevant to Health Maintenance Insurance [facility] BLUE CROSS OF NON-MO-ITS [employer] CHOICE CARE Care Teams Customs Entry Writer Relationship Specialty Start Date End Date Gregory Cash MD PCP - General 07/15/09
[2024-12-02 15:43] LABS: Basophils Absolute Auto 0.02 K/uL (0.00-0.30); Basophils Percent Auto 0.2 % (0.0-3.0); Eosinophils Absolute Auto 0.07 K/uL (0.00-0.50); Eosinophils Percent Auto 0.8 % (0.0-7.0); Hematocrit 37.8 % (33.0-51.0); Hemoglobin* 12.8 gm/dL (12.0-16.0); Immature Granulocytes Abs Auto 0.09 K/uL (0.00-0.30); Lymphocytes Percent Auto 14.1 % (20-44); Mean Corpuscular HGB Conc 34 gm/dL (32-36); Mean Corpuscular Hemoglobin 30 pg (26-34); Mean Corpuscular Volume 89 fL (80-100); Monocytes Percent Auto 4.9 % (0.0-11.0); Platelet Count* 180 K/uL (140-440); RDW Coefficient of Variation % 12.5 % (11.5-15.5); Red Blood Count 4.23 m/uL (4.00-5.20); White Blood Count* 8.64 K/uL (4.50-11.00)
[2024-12-02] MEDS: ONDANSETRON 2 MG/ML inj 4 MG IVP (15:44)
[2024-12-02] MEDS: 0.9 % SODIUM CHLORIDE 1000 ml 1,000 ML IV (15:44)
[2024-12-02 15:46] LABS: Slide Review Reflex No
[2024-12-02 16:00] LABS: Chloride* 103 mmol/L (96-114); Potassium* 3.5 mmol/L (3.6-5.1); Sodium* 135 mmol/L (135-149)
[2024-12-02 16:02] LABS: Blood Urea Nitrogen* 8 mg/dL (5-24); Creatinine* 0.4 mg/dL (0.5-1.5); Estimated Glomerular Filt Rate 143 ml/min
[2024-12-02 16:03] LABS: Alanine Aminotransferase* 12 U/L (4-35); Alkaline Phosphatase* 31 U/L (40-150); Anion Gap 9 mEq/L (7-15); Aspartate Amino Transferase* 17 U/L (12-35); Bilirubin Total* 0.7 mg/dL (0.1-1.5); Calcium* 8.8 mg/dL (8.4-10.6); Carbon Dioxide* 23 mmol/L (20-32); Glucose* 83 mg/dL (60-115); Total Protein* 6.7 g/dL (6.0-8.3)
[2024-12-02 16:06] LABS: PCR FLU A Negative PCR FLU A (Negative); PCR FLU B Negative PCR FLU B (Negative); PCR RSV POSITIVE PCR RSV (Negative); SARS PCR* Negative SARS-CoV-2 (Negative)
== END 2024-12-02 17:08 | disposition home or self-care (01) ==
PROVIDERS: Internal Medicine; Emergency Provider Student in an Organized Health Care Education/Training Program; PCP Family Medicine
DX: O21.0 Mild hyperemesis gravidarum (principal); Z3A.12 12 weeks gestation of pregnancy; B97.4 Respiratory syncytial virus as the cause of diseases classified elsewhere
CPT/HCPCS: 36415; 80053; 85025; 87631; 96374; 99283; 99284; J2405; J7030

== ENCOUNTER 2024-12-26 15:03 | Outpatient (CLI) | payer BC, SELFPAY | END 2024-12-26 15:04 | disposition home or self-care (01) | LOC: NFLDREF 15:03 | PROVIDERS: PCP Family Medicine; Visit Provider Registered Nurse | DX: E03.8 Other specified hypothyroidism (principal) | CPT/HCPCS: 84443 ==

== ENCOUNTER 2025-01-23 11:53 | Outpatient (CLI) | payer BC, SELFPAY ==
--- NOTE | 2025-01-23 12:15 | CRLHL7_ITS ---
For Patients: As a result of the Century Cures Act, medical imaging exams and procedure reports are released immediately into your electronic medical record. You may view this report before your referring provider. If you have questions, please contact your health care provider. OB ULTRASOUND SURVEY LISA by US: 06/12/2025. GA: 20 w, 0 d. INDICATION: anatomy scan. TECHNIQUE: Real time grayscale imaging of the fetus was performed. Evaluate anatomy. Transabdominal. position: Vertex. Cervix: Visualized. Technique: Transabdominal. Length of closed cervix: 4.0 cm. Placenta/cord: Posterior. Technique: Transabdominal. Placenta tip to internal OS: 5.7 cm. Umbilical Cord: 3-vessel cord. Placenta insertion: Marginal (within 2 cm of placenta edge). Amniotic Fluid: 3.6 cm SDP (greater than/equal to: 2- less than 8 cm). SURVEY: Observed Structures. Calvarium/Spine: Cerebellum: 2.1 cm, 21 w 3 d. Cisterna Magna: 4.6 mm. Nuchal Fold: 3.3 mm. Lateral Ventricle: 6.2 mm. CSP: Yes. Midline Falx: Yes. Choroid Plexus: Yes. Spine: Yes. Abdomen: Stomach: Yes. Abd Cord Insertion: Yes. Urinary Bladder: Yes. Kidneys: Yes. Diaphragm: Yes. Face: Nose/lips: Yes. Orbital view: Yes. Profile: Yes. Limbs: Upper Extremities: Yes. Lower Extremities: Yes. Hands: Yes. Feet: Yes. Vascular: 4-Chamber Heart: Yes. LVOT: Yes. RVOT: Yes. 3VV: Yes. 3VTV: Yes. BPD: 4.7 cm. 20 w, 2 d, 62 percent. HC: 18.0 cm. 20 w, 3 d, 61 percent. AC: 15.8 cm. 21 w, 0 d, 75 percent. FL: 3.0 cm. 19 w, 2 d, 18 percent. FL/AC ratio: 18.95 percent. HC/AC ratio: 1.14. heart rate: 142 bpm. age by this US: 20 w, 3 d. LISA by this US: 06/09/2025. EFW: 338.90 g. Weight: 12 oz. Percentile by LISA: 58 percent. IMPRESSION: 1. Concordance of clinical and sonographic dating. 2. Estimated weight 58th percentile. Abdominal circumference 75th percentile. 3. Normal anatomic survey. 4. Marginal placental cord insertion 1.8 cm from the placental edge. Wilder Church M.D. Diagnostic Radiologist [email or web address] DOGN/prema jgrover/Dictated by: Wilder Church MD @ 01/23/2025 2:30:00 PM (Electronically Signed)
== END 2025-01-23 11:54 | disposition home or self-care (01) ==
LOC: US 11:55
PROVIDERS: PCP Family Medicine; Visit Provider Registered Nurse
DX: Z34.92 Encounter for supervision of normal pregnancy, unspecified, second trimester (principal); Z3A.20 20 weeks gestation of pregnancy
CPT/HCPCS: 76805

== ENCOUNTER 2025-01-26 21:36 | Outpatient (CLI) | payer BC, SELFPAY | END 2025-01-26 21:37 | disposition home or self-care (01) | LOC: AMB 01-28 11:57 | PROVIDERS: PCP Family Medicine; Visit Provider Family Medicine | DX: O26.892 Other specified pregnancy related conditions, second trimester (principal); S29.9XXA Unspecified injury of thorax, initial encounter; S09.90XA Unspecified injury of head, initial encounter; Z3A.20 20 weeks gestation of pregnancy; W01.0XXA Fall on same level from slipping, tripping and stumbling without subsequent striking against object, initial encounter; Y92.63 Factory as the place of occurrence of the external cause | CPT/HCPCS: A0425; A0429 ==

== ENCOUNTER 2025-01-26 21:50 | Emergency (ER) | payer BC, SELFPAY ==
--- OUTSIDE RECORDS SUMMARY | 2025-01-26 21:52 | XMS_ITS | Clinical Summary ---
Author Organization [facility] Address [address], [place] [address] Care Team Providers Care Barber Or Beauty Shop Manager Name Role Phone Gregory Cash MD Primary Care Provider [phone] Source Comments You are receiving this document as you are listed as the primary care provider,follow-up provider, or the patient has been referred to you for consultation.This is in compliance with the Medicare and[facility] EHR Incentive Program,which states Providers who transition their patient to another setting of careor provider of care or refers their patient to another provider of care shouldprovide summary care record for each transition of care or referral. [facility] Allergies No known active allergies Social History Tobacco Use Types Packs/Day Years Used Date Smoking Tobacco: Never Assessed Comments Unknown Sex and Gender Information Value Date Recorded Sex Assigned at Not on file Legal Sex Female 3:22 AM SAP GRC SECURITY Gender Identity Not on file Sexual Orientation Not on file Last Filed Vital Signs Vital Sign Reading Time Taken Comments Blood Pressure 129/77 10/08/2022 4:51 AM SAP GRC SECURITY Pulse 97 10/08/2022 4:51 AM SAP GRC SECURITY Temperature 36.8 C (98.2 F) 10/08/2022 3:29 AM SAP GRC SECURITY Respiratory Rate 16 10/08/2022 4:51 AM SAP GRC SECURITY Oxygen Saturation 99% 10/08/2022 4:51 AM SAP GRC SECURITY Inhaled Oxygen Concentration - - Weight 54.4 kg (120 lb) 10/08/2022 3:29 AM SAP GRC SECURITY Height 167.6 cm (5' 6) 10/08/2022 3:29 AM SAP GRC SECURITY Body Mass Index 19.37 10/08/2022 3:29 AM SAP GRC SECURITY Plan of Treatment Health Maintenance Due Date Last Done Comments Cervical Cancer Screening Due 2001 Hep C Screening (Preventive Services) 2001 MenB Immunization Discussion 2001 HepA Vaccine (2 of 2 - 2-dose series) 12/08/2014 06/10/2014 HPV Vaccine (1 - 3-dose series) 2016 HIV Screening (Preventive Services) 2017 Adult Preventive Visit 12/14/2019 HepB Vaccine (1) 2020 Chlamydia 04/21/2023 04/21/2022 COVID-19 Vaccine (1 - 2023- season) 2024 DTaP/Tdap/Td Vaccine (7 - Tdap) 06/10/2024 06/10/2014, 09/01/2006, 07/03/2004, Additional history exists Influenza Vaccine (Season Ended) 2025 Zoster/Shingles Vaccine (1 of 2) 12/14/2051 Pneumococcal Vaccine Aged Out 08/20/2003, 04/03/2003, 02/13/2002 No longer eligible based on patient's age to complete this topic IPV (Polio) Vaccine Completed 09/01/2006, 04/03/2003, 04/16/2002, Additional history exists MCV4 Vaccine Aged Out 06/10/2014 No longer eligi ble based on patient's age to complete this topic Hib Vaccine Aged Out No longer eligi ble based on patient's age to complete this topic Insurance [facility] Care Teams Barber Or Beauty Shop Manager Relationship Specialty Start Date End Date Gregory Cash MD [address] [place] [address] PCP - General Family Practice 01/26/24
--- OUTSIDE RECORDS SUMMARY | 2025-01-26 21:52 | XMS_ITS | Clinical Summary ---
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 file Not on file Not on file Obstetrics History Last Filed Vital Signs Vital Sign Reading Time Taken Comments Blood Pressure 137/72 10/02/2024 5:20 AM DIRECTOR OF OUTPATIENT SERVICES Pulse 85 10/02/2024 5:20 AM DIRECTOR OF OUTPATIENT SERVICES Temperature 36.7 C (98.1 F) 10/02/2024 4:54 AM DIRECTOR OF OUTPATIENT SERVICES Respiratory Rate 16 10/02/2024 4:54 AM DIRECTOR OF OUTPATIENT SERVICES Oxygen Saturation 97% 10/02/2024 5:20 AM DIRECTOR OF OUTPATIENT SERVICES Inhaled Oxygen Concentration - - Weight 57.8 kg (127 lb 8 oz) 10/02/2024 4:54 AM DIRECTOR OF OUTPATIENT SERVICES Height 165.1 cm (5' 5) 10/02/2024 4:54 AM DIRECTOR OF OUTPATIENT SERVICES Body Mass Index 21.22 10/02/2024 4:54 AM DIRECTOR OF OUTPATIENT SERVICES Plan of Treatment Health Maintenance Due Date [...] for age 18+ 01/16/2025 01/17/2024, 06/06/2023, 02/27/2021 Influenza Vaccine (Season Ended) 2025 Pap test for age 21-65 01/11/2027 01/12/2024 Tetanus booster 12/07/2033 12/08/2023, 06/10/2014 Pneumococcal series for age 6-49 Aged Out 08/20/2003, 04/03/2003, 02/13/2002 No longer eligible based on patient's age to complete this topic Tdap Completed 12/08/2023, 06/10/2014 Procedures Procedure Name Priority Date/Time Associated Diagnosis Comments SCAN-ULTRASOUND REPORT 10/31/2024 12:00 AM DIRECTOR OF OUTPATIENT SERVICES PHOTOENGRAVING FINISHER THIN PREP PAP SCREEN IMAGED Routine 01/12/2024 8:43 AM CDT CHLAMYDIA TRACH PROBE Routine 12/09/2016 11:54 AM CDT Screening for chlamydial disease from Last 3 Months or Most Recently Relevant to Health Maintenance Results * SCAN-ULTRASOUND REPORT (10/31/2024 12:00 AM DIRECTOR OF OUTPATIENT SERVICES) Anatomical Region Laterality Modality Other us Scanner OTHER Final Result * (ABNORMAL) PHOTOENGRAVING FINISHER THIN PREP PAP SCREEN IMAGED (01/12/2024 8:43 AM CDT) Case Report Gynecologic Cytology Report Case: [id number] Authorizing Provider: Robina Lombardi PA-C Collected: 01/12/2024 0843 Ordering Location: [facility] Received: 01/13/2024 0837 First Screen: Maite Castellanos Pathologist: Jeremy Farnsworth MD Specimen: PHOTOENGRAVING FINISHER ThinPrep Vial Screening, Cervical 01/25/2024 4:21 PM CDT [employer] [facility]- ENTRAL LABORATORY INTERPRETATION/ RESULT LOW GRADE SQUAMOUS INTRAEPITHELIAL LESION (LSIL)(A) (none) 01/25/2024 4:21 PM CDT [facility] [id number] [facility] ENTRAL LABORATORY at 1621 CDT SPECIMEN ADEQUACY Satisfactory for evaluation No endocervical component seen 01/25/2024 4:21 PM CDT [employer] ENTRAL LABORATORY HPV REQUEST HPV not requested 2023 4:21 PM CDT [facility] LABORATORY-C ENTRAL LABORATORY Date of LMP 01/25/2024 4:21 PM CDT [facility] [employer] [facility] Comment:unk Last Pap Date 01/21/2023 01/25/2024 4:21 PM CDT [facility] ENTRAL LABORATORY Last Pap Result LSIL 4:21 PM CDT [facility] Abnormal Pap or [place] Bx in last 5 years No 01/25/2024 4:21 PM CDT [facility] [employer] ENTRAL LABORATORY Menstrual Status Regular Periods 01/25/2024 4:21 PM CDT [facility] [employer] ENTRAL LABORATORY [place] Bx Done Today No 01/25/2024 4:21 PM CDT [facility] [employer] [facility] ENTRAL LABORATORY Additional Information 01/25/2024 4:21 PM CDT [facility] [employer] [facility] ENTRAL LABORATORY Comment: Interpreted at [facility], Central Laboratory - [address], [place] [address] Automated Review Successful 01/25/2024 4:21 PM CDT [facility] ENTRAL LABORATORY Comment:Specimen processed s uccessfully by automated reception centre manager device, ThinPrep Imaging System, [employer] Note The pap test is a [...] and malignant lesions. 01/25/2024 4:21 PM CDT [facility] ENTRAL LABORATORY Other (Cervical) 01/12/2024 8:43 AM CDT 01/13/2024 8:37 AM CDT December Harjit MORA PATHOLOGY/CYTOLOGY Final R esult [facility] [address] [place] [address], [place] * CHLAMYDIA TRACH PROBE (12/09/2016 11:54 AM CDT) CHLAMYDIA PROBE Negative 12/10/2016 12:52 PM CDT [facility] TRAL LABORATORY Other URINE SPECIMEN / Unknown Non-Blood / Unknown 12/09/2016 11:54 AM CDT 12/09/2016 11:54 AM CDT Skye URRUTIA MICROBIOLOGY Final Resu lt [facility] [address] [place] [address], [place] from Last 3 Months or Most Recently Relevant to Health Maintenance Insurance [facility] MEDICA CHOICE CARE Care Teams Desktop Engineer Relationship Specialty Start Date End Date Gregory Cash MD PCP - General 07/15/09
[2025-01-26 21:57] VITALS: BP 130/87; PULSE 93; RESP 20; TEMP 36.8; O2SAT 100; BMI 22.3
--- NOTE | 2025-01-26 22:18 | CRLHL7_ITS ---
For Patients: As a result of the Century Cures Act, medical imaging exams and procedure reports are released immediately into your electronic medical record. You may view this report before your referring provider. If you have questions, please contact your health care provider. INDICATION: Abdominal trauma in a patient. TECHNIQUE: Ultrasound OB pelvis transabdominal limited. Real-time jacinto-scale imaging of the fetus was performed. COMPARISON: OB pelvis ultrasound 01/23/2025. FINDINGS: Single living intrauterine gestation. heart rate: 150 beats per minute. Presentation: Breech. Placenta: Posterior. Amniotic fluid deepest pocket: 6 cm. Cervix: 3.5 cm. Limited evaluation of the fetus demonstrates no obvious abnormality. No free fluid appreciated. IMPRESSION.: Single live intrauterine gestation without acute or suspicious abnormality identified. Dictated by Milton Coello MD @ 01/26/2025 11:15:08 PM (Electronically Signed)
--- NOTE | 2025-01-26 23:14 | ED_ITS ---
HPI - General Adult General Chief complaint: Fall/Minor Trauma Stated complaint: , fall Time Seen by Provider: 01/26/25 23:04 History of Present Illness HPI narrative: Patient arrives via [facility] with c/o fall onto abdomen at 2100 . Patient was carrying a box at work when she tripped on a hose and fell onto her abdomen and head. Patient denies LOC. Patient is 20.5 weeks . . care with Jaz Mercado DNP. OB RN consulted and will assess patient in ER to begin. 24-year-old woman presenting to the emergency department via EMS following fall. Caring a box at work when she tripped in fell onto her abdomen. There was no loss of consciousness as it sounds like struck her head a little as well. Is in 20 with week of . Is understandably upset. Sounds like might be experiencing little discomfort, slight cramping, persistent pain in the abdomen but no regular contractions described. No bleeding. Fall occurred about an hour prior to this interview. Related Data Home Medications ?Medication ?Instructions ?Recorded ?Confirmed docosahexaenoic acid 200 mg mg PO 11/14/24 01/23/25 capsule ( DHA) cetirizine 5 mg tablet 5 mg PO QDAY PRN 11/28/24 01/23/25 Previous Rx's ?Medication ?Instructions ?Recorded abuavljzbk-ppophjdjkmgyc-fzowncim 1 tab PO Q6H PRN pain #10 tabs 01/23/25 50 mg-325 mg-40 mg tablet levothyroxine 25 mcg tablet 25 mcg PO QDAY #90 tabs 01/23/25 ondansetron 4 mg disintegrating 4 mg PO Q6-8H PRN nausea and 01/23/25 tablet vomiting #30 tabs Allergies Allergy/AdvReac Type Severity Reaction Status Date / Time No Known Drug Allergies Allergy Verified 01/23/25 08:27 Review of Systems Status of ROS: Reports: 6 or more systems reviewed and unremarkable except as noted in History and below [facility] Medical History Vaginal bleeding, abnormal ?N93.9 - Abnormal uterine and vaginal bleeding, unspecified (ICD-10) Nexplanon removal ?Z30.46 - Encounter for surveillance of implantable subdermal contraceptive (ICD-10) No significant past medical history Surgical History No significant past surgical history Family History Other Endometriosis Social History Narrative: Patient works at [employer]. Single. Nonsmoker. Alcohol use: 1-2 per week. No illicit drug use. What is your current living situation?: I presently have a place to live Problems where you live: no known problems In the past 12 months, utilities in danger of being shut off: no In past 12 months, lack of transportation kept you from medical appts, meetings, work, or getting things needed for daily living: no In the past 12 mos, have been you worried that your food would run out before you had money to buy more?: never true In the past 12 mos, the food you bought just didn't last and you didn't have money to buy more?: never true Smoking Status: Never smoker Do you use any of these nicotine containing products: Vaping Products Second hand tobacco smoke exposure: No How often do you have a drink containing alcohol: 2-3 times a week How many standard drinks containing alcohol do you have on a typical day: 3 or 4 How often do you have six or more drinks on one occasion: Monthly AUDIT-C Alcohol total score: 6 Non-prescribed substance use: marijuana (any form) and crack/cocaine How often does anyone, including family, friends and others, physically hurt you : never How often does anyone, including family, friends and others, insult or talk down to you: never How often does anyone, including family, friends and others, threaten you with harm: never How often does anyone, including family, friends and others, scream or curse at you: never Exam Narrative: Exam Narrative: Pleasant. Appears to have been a little tearful. Skin is warm and dry. No outward sign of injury. Head looks atraumatic. Neck is supple nontender. Back nontender. Lungs appear to be clear. Heart in mildly elevated rate regular rhythm. Abdomen is soft. Appropriately gravid. Tender to palpation through the low pelvis. No peritoneal signs. Moving all extremities without dif ficulty. No lower extremity edema. Const: Vital Signs, click to edit/add: Vital Signs - 24 hr 01/26/25 21:57 Temperature 98.2 F Pulse Rate [Right Pulse Oximeter] 93 Respiratory Rate 20 Blood Pressure [Le ft Upper Arm] 130/87 Pulse Oximetry 100 Oxygen Delivery Me thod Room Air Documenting provider has reviewed patient's vital signs: yes Course Vital Signs Vital signs: Initial Vital Signs Temperature 98.2 F 01/26/25 21:57 Temperature Source Temporal Artery Scan 01/26/25 21:57 Pulse Rate 93 01/26/25 21:57 Respiratory Rate 20 01/26/25 21:57 Blood Pressure 130/87 01/26/25 21:57 Blood Pressure Mean 101 01/26/25 21:57 Blood Pressure Position Semi-Fowlers 01/26/25 21:57 Pulse Oximetry 100 01/26/25 21:57 Oxygen Delivery Method Room Air 01/26/25 21:57 Vital Signs Temperature 98.2 F 01/26/25 21:57 Pulse Rate 93 01/26/25 21:57 Respiratory Rate 20 01/26/25 21:57 Blood Pressure 130/87 01/26/25 21:57 Pulse Oximetry 100 01/26/25 21:57 Oxygen Delivery Method Room Air 01/26/25 21:57 Temperature 98.2 F 01/26/25 21:57 Pulse Rate 87 01/26/25 23:35 Respiratory Rate 20 01/26/25 23:35 Blood Pressure 115/83 01/26/25 23:35 Pulse Oximetry 98 01/26/25 23:35 Oxygen Delivery Method Room Air 01/26/25 23:35 Medications Administered Medications: Discontinued Medications Generic Name Dose Route Start Last Admin Trade Name Freq PRN Reason Stop Dose Admin Hydrocodone Bitart/Acetaminophen 2 tab 01/26/25 23:22 01/26/25 23:34 Hydrocodone-Acetamin 5-325 Mg 1 Tab PO 01/26/25 23:23 2 tab ONCE ONE Administration Medical Decision Making MDM Narrative Medical decision making narrative: It sounds as though injury was relatively minor. OB nursing has been assisting with some monitoring. Heart rate looks good. Will offer OB ultrasound for further evaluation. Does not need imaging of head or neck. Did discuss reassuring findings of ultrasound with vamp marker. No further events during time monitoring emergency department. INDICATION: Abdominal trauma in a patient. TECHNIQUE: Ultrasound OB pelvis transabdominal limited. Real-time jacinto-scale imaging of the fetus was performed. COMPARISON: OB pelvis ultrasound 01/23/2025. FINDINGS: Single living intrauterine gestation. heart rate: 150 beats per minute. Presentation: Breech. Placenta: Posterior. Amniotic fluid deepest pocket: 6 cm. Cervix: 3.5 cm. Limited evaluation of the fetus demonstrates no obvious abnormality. No free fluid appreciated. IMPRESSION.: Single live intrauterine gestation without acute or suspicious abnormality identified. Dictated by Milton Coello MD @ 01/26/2025 11:15:08 PM Discussed concerns of pain management. See patient discharge plan for further discussion Stay well-hydrated. Anticipate need for regular stretching over the next few days. Can take up to 1000 mg of acetaminophen per dose. Keep in mind that each tablet of [place] contains 325 mg of acetaminophen. Prescribing a few from [facility] needed. Be seen for marked increase in persistent pain, bleeding. Medical Records Medical records reviewed: Yes I reviewed the patient's medical records Discharge Plan Discharge Clinical Impression: Fall, Abdominal pain Patient Disposition: Home w/ Parent or Adult Condition: Improved Additional Instructions: Stay well-hydrated. Anticipate need for regular stretching over the next few days. Can take up to 1000 mg of acetaminophen per dose. Keep in mind that each tablet of [place] contains 325 mg of acetaminophen. Prescribing a few from [facility] needed. Be seen for marked increase in persistent pain, bleeding. Prescriptions: No Action cetirizine 5 mg tablet 5 mg PO QDAY PRN levothyroxine 25 mcg tablet 25 mcg PO QDAY Qty: 90 3RF kwthrzbbhs-bqxcoxhjrttcq-pkva 50-325-40 mg tablet 1 tab PO Q6H PRN (Reason: pain) Qty: 10 0RF ondansetron 4 mg tablet,disintegrating 4 mg PO Q6-8H PRN (Reason: nausea and vomiting) Qty: 30 0RF DHA 200 mg capsule PO Follow Up/Referrals: Gregory Cash MD [Primary Care Provider] - Stand Alone Forms: [employer] Info Instructions
[2025-01-26] MEDS: HYDROCODONE-ACETAMIN 5-325 MG 1 TAB 2 TAB PO (23:34)
[2025-01-26 23:35] VITALS: BP 115/83; PULSE 87; RESP 20; O2SAT 98
--- OUTSIDE RECORDS SUMMARY | 2025-01-26 23:48 | XMS_ITS | Clinical Summary ---
Author Organization [facility] Address [address] [address] Care Team Providers Care Fisher Weir Name Role Phone Gregory Cash MD Primary Care Provider [phone] Source Comments You are receiving this document as you are listed as the primary care provider,follow-up provider, or the patient has been referred to you for consultation.This is in compliance with the Medicare and[facility] EHR Incentive Program,which states Providers who transition [...] on file Legal Sex Female 3:22 AM RAMPMAN Gender Identity Not on file Sexual Orientation Not on file Last Filed Vital Signs Vital Sign Reading Time Taken Comments Blood Pressure 129/77 10/08/2022 4:51 AM RAMPMAN Pulse 97 10/08/2022 4:51 AM RAMPMAN Temperature 36.8 C (98.2 F) 10/08/2022 3:29 AM RAMPMAN Respiratory Rate 16 10/08/2022 4:51 AM RAMPMAN Oxygen Saturation 99% 10/08/2022 4:51 AM RAMPMAN Inhaled Oxygen Concentration - - Weight 54.4 kg (120 lb) 10/08/2022 3:29 AM RAMPMAN Height 167.6 cm (5' 6) 10/08/2022 3:29 AM RAMPMAN Body Mass Index 19.37 10/08/2022 3:29 AM RAMPMAN Plan of Treatment Health Maintenance Due Date [...] patient's age to complete this topic Insurance [facility] Care Teams Fisher Weir Relationship Specialty Start Date End Date Gregory Cash MD [address] [place] [address] PCP - General Family Practice 01/26/24
--- OUTSIDE RECORDS SUMMARY | 2025-01-26 23:48 | XMS_ITS | Clinical Summary ---
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 Not on file Not on file Obstetrics History Last Filed Vital Signs Vital Sign Reading Time Taken Comments Blood Pressure 137/72 10/02/2024 5:20 AM GLAZIER METAL FURNITURE Pulse 85 10/02/2024 5:20 AM GLAZIER METAL FURNITURE Temperature 36.7 C (98.1 F) 10/02/2024 4:54 AM GLAZIER METAL FURNITURE Respiratory Rate 16 10/02/2024 4:54 AM GLAZIER METAL FURNITURE Oxygen Saturation 97% 10/02/2024 5:20 AM GLAZIER METAL FURNITURE Inhaled Oxygen Concentration - - Weight 57.8 kg (127 lb 8 oz) 10/02/2024 4:54 AM GLAZIER METAL FURNITURE Height 165.1 cm (5' 5) 10/02/2024 4:54 AM GLAZIER METAL FURNITURE Body Mass Index 21.22 10/02/2024 4:54 AM GLAZIER METAL FURNITURE Plan of Treatment Health Maintenance Due Date [...] Diagnosis Comments SCAN-ULTRASOUND REPORT 10/31/2024 12:00 AM GLAZIER METAL FURNITURE GROUNDS RESTORATION SPECIALIST THIN PREP PAP SCREEN IMAGED Routine 01/12/2024 8:43 AM CDT CHLAMYDIA TRACH PROBE Routine 12/09/2016 11:54 AM CDT Screening for chlamydial disease from Last 3 Months or Most Recently Relevant to Health Maintenance Results * SCAN-ULTRASOUND REPORT (10/31/2024 12:00 AM GLAZIER METAL FURNITURE) Anatomical Region Laterality Modality Other us Scanner OTHER Final Result * (ABNORMAL) GROUNDS RESTORATION SPECIALIST THIN PREP PAP SCREEN IMAGED (01/12/2024 8:43 AM CDT) Case Report Gynecologic Cytology Report Case: [id number] Authorizing Provider: Robina Lombardi PA-C Collected: 01/12/2024 0843 Ordering Location: [facility] Received: 01/13/2024 0837 First Screen: Maite Castellanos Pathologist: Jeremy Farnsworth MD Specimen: GROUNDS RESTORATION SPECIALIST ThinPrep Vial Screening, Cervical 01/25/2024 4:21 PM CDT [employer] [facility] ENTRAL LABORATORY INTERPRETATION/ RESULT LOW GRADE SQUAMOUS INTRAEPITHELIAL LESION (LSIL)(A) (none) 01/25/2024 4:21 PM CDT [facility] at 1621 CDT SPECIMEN ADEQUACY Satisfactory for evaluation No endocervical component seen 01/25/2024 4:21 PM CDT [employer] ENTRAL LABORATORY HPV REQUEST HPV not requested 2023 4:21 PM CDT [employer] LABORATORY-C ENTRAL LABORATORY Date of LMP 01/25/2024 4:21 PM CDT [facility] Comment:unk Last Pap Date 01/21/2023 01/25/2024 4:21 PM CDT [facility]ORY[facility] ENTRAL LABORATORY Last Pap Result LSIL 4:21 PM CDT [facility] Abnormal Pap or [place] Bx in last 5 years No 01/25/2024 4:21 PM CDT [facility] [employer] ENTRAL LABORATORY Menstrual Status Regular Periods 01/25/2024 4:21 PM CDT [facility] [employer] ENTRAL LABORATORY [place] Bx Done Today No 01/25/2024 4:21 PM CDT [facility] Additional Information 01/25/2024 4:21 PM CDT [facility] Comment: Interpreted at [facility], Central Laboratory - [address], [place] [address] Automated Review Successful 01/25/2024 4:21 PM CDT [facility] ENTRAL LABORATORY Comment:Specimen processed s uccessfully by automated graphite pan drier tender device, ThinPrep Imaging System, [employer] Note The pap test is a [...] and malignant lesions. 01/25/2024 4:21 PM CDT [facility] ENTRAL LABORATORY Other (Cervical) 01/12/2024 8:43 AM CDT 01/13/2024 8:37 AM CDT December Harjit MORA PATHOLOGY/CYTOLOGY Final R esult [facility] [address] [place] [address], [place] * CHLAMYDIA TRACH PROBE (12/09/2016 11:54 AM CDT) CHLAMYDIA PROBE Negative 12/10/2016 12:52 PM CDT [facility] TRAL LABORATORY Other URINE SPECIMEN / Unknown Non-Blood / Unknown 12/09/2016 11:54 AM CDT 12/09/2016 11:54 AM CDT Skye URRUTIA MICROBIOLOGY Final Resu lt [facility] [address] [place] [address], [place] from Last 3 Months or Most Recently Relevant to Health Maintenance Insurance [facility] MEDICA CHOICE CARE Care Teams Heel Sander Rubber Relationship Specialty Start Date End Date Gregory Cash MD PCP - General 07/15/09
== END 2025-01-26 23:59 | disposition home or self-care (01) ==
PROVIDERS: Emergency Provider Family Medicine; PCP Family Medicine
DX: R10.9 Unspecified abdominal pain (principal); Z3A.20 20 weeks gestation of pregnancy; W18.09XA Striking against other object with subsequent fall, initial encounter
CPT/HCPCS: 76815; 99283; 99284; A9270

== ENCOUNTER 2025-02-21 10:29 | Emergency (ER) | payer BC, SELFPAY ==
--- OUTSIDE RECORDS SUMMARY | 2025-02-21 10:31 | XMS_ITS | Clinical Summary ---
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 file Not on file Not on file Obstetrics History Last Filed Vital Signs Vital Sign Reading Time Taken Comments Blood Pressure 137/72 10/02/2024 5:20 AM FARM ASSISTANT Pulse 85 10/02/2024 5:20 AM FARM ASSISTANT Temperature 36.7 C (98.1 F) 10/02/2024 4:54 AM FARM ASSISTANT Respiratory Rate 16 10/02/2024 4:54 AM FARM ASSISTANT Oxygen Saturation 97% 10/02/2024 5:20 AM FARM ASSISTANT Inhaled Oxygen Concentration - - Weight 57.8 kg (127 lb 8 oz) 10/02/2024 4:54 AM FARM ASSISTANT Height 165.1 cm (5' 5) 10/02/2024 4:54 AM FARM ASSISTANT Body Mass Index 21.22 10/02/2024 4:54 AM FARM ASSISTANT Plan of Treatment Health Maintenance Due Date Last Done Comments Depression screening for age 12+ 2013 HIV for age 15-65 2016 HPV series for age 9-26 (1 - 3-dose series) 2016 Chlamydia for age 16-24 2017 12/09/2016 Hepatitis C screening for ag e 18-79 12/14/2019 COVID-19 vaccine series ( season) 2024 03/27/2021 BMI (ht and wt on same day) for age 18+ 01/16/2025 01/17/2024, 06/06/2023, 02/27/2021 Influenza Vaccine (Season Ended) 2025 Pap test for age 21-65 01/11/2027 01/12/2024 Tetanus booster 12/07/2033 12/08/2023, 06/10/2014 Hepatitis B series for 19+ Completed 04/03, 04/16/2002, 02/13/2002 Pneumococcal series for age 6-49 Aged Out 08/20/2003, 04/03/2003, 02/13/2002 No longer eligible based on patient's age to complete this topic Tdap Completed 12/08/2023, 06/10/2014 Procedures Procedure Name Priority Date/Time Associated Diagnosis Comments SCAN-ULTRASOUND REPORT 01/26/2025 12:00 AM CDT ORE STORAGE DRIER THIN PREP PAP SCREEN IMAGED Routine 01/12/2024 8:43 AM CDT CHLAMYDIA TRACH PROBE Routine 12/09/2016 11:54 AM CDT Screening for chlamydial disease from Last 3 Months or Most Recently Relevant to Health Maintenance Results * SCAN-ULTRASOUND REPORT (01/26/2025 12:00 AM CDT) Anatomical Region Laterality Modality Other us Scanner OTHER Final Result * (ABNORMAL) ORE STORAGE DRIER THIN PREP PAP SCREEN IMAGED (01/12/2024 8:43 AM CDT) Case Report Gynecologic Cytology Report Case: [id number] Authorizing Provider: Robina Lombardi PA-C Collected: 01/12/2024 0843 Ordering Location: [facility] Received: 01/13/2024 0837 First Screen: Maite Castellanos Pathologist: Jeremy Farnsworth MD Specimen: ORE STORAGE DRIER ThinPrep Vial Screening, Cervical 01/25/2024 4:21 PM CDT [facility] INTERPRETATION/ RESULT LOW GRADE SQUAMOUS INTRAEPITHELIAL LESION (LSIL)(A) (none) 01/25/2024 4:21 PM CDT [facility] at 1621 CDT SPECIMEN ADEQUACY Satisfactory for evaluation No endocervical component seen 01/25/2024 4:21 PM CDT [facility] HPV REQUEST HPV not requested 2023 4:21 PM CDT [facility] Date of LMP 01/25/2024 4:21 PM CDT [facility] Comment:unk Last Pap Date 01/21/2023 01/25/2024 4:21 PM CDT [facility] Last Pap Result LSIL 4:21 PM CDT [facility] Abnormal Pap or Sloan Bx in last 5 years No 01/25/2024 4:21 PM CDT [facility] Menstrual Status Regular Periods 01/25/2024 4:21 PM CDT [facility] Sloan Bx Done Today No 01/25/2024 4:21 PM CDT [facility] [employer] [facility] Additional Information 01/25/2024 4:21 PM CDT [facility] Comment: Interpreted at [employer], Central Laboratory - [address], [place] [address] Automated Review Successful 01/25/2024 4:21 PM CDT [facility] EN[facility] Comment:Specimen processed s uccessfully by automated tc operator device, ThinPrep Imaging System, [employer] Note The pap test is a [...] and malignant lesions. 01/25/2024 4:21 PM CDT [facility] Other (Cervical) 01/12/2024 8:43 AM CDT 01/13/2024 8:37 AM CDT Robina Celestino Lombardi PA-C PATHOLOGY/CYTOLOGY Final R esult [facility] [address] [place] [address], [place] * CHLAMYDIA TRACH PROBE (12/09/2016 11:54 AM CDT) CHLAMYDIA PROBE Negative 12/10/2016 12:52 PM CDT [facility] Other URINE SPECIMEN / Unknown Non-Blood / Unknown 12/09/2016 11:54 AM CDT 12/09/2016 11:54 AM CDT [facility] Final Resu lt [facility] [address] [place] [address], [place] from Last 3 Months or Most Recently Relevant to Health Maintenance Insurance [facility] [employer] CHOICE CARE Care Teams Drafting Teacher Relationship Specialty Start Date End Date Gregory Cash MD PCP - General 07/15/09
--- OUTSIDE RECORDS SUMMARY | 2025-02-21 10:31 | XMS_ITS | Clinical Summary ---
Author Organization [facility] Address [address], [place] [address] Care Team Providers Care Straightener Gun Parts Name Role Phone Gregory Cash MD Primary Care Provider [phone] Source Comments You are receiving this document as you are listed as the primary care provider,follow-up provider, or the patient has been referred to you for consultation.This is in compliance with the Medicare and[facility]cent[facility],which states Providers who [...] on file Legal Sex Female 3:22 AM RN PALLIATIVE CARE Gender Identity Not on file Sexual Orientation Not on file Last Filed Vital Signs Vital Sign Reading Time Taken Comments Blood Pressure 129/77 10/08/2022 4:51 AM RN PALLIATIVE CARE Pulse 97 10/08/2022 4:51 AM RN PALLIATIVE CARE Temperature 36.8 C (98.2 F) 10/08/2022 3:29 AM RN PALLIATIVE CARE Respiratory Rate 16 10/08/2022 4:51 AM RN PALLIATIVE CARE Oxygen Saturation 99% 10/08/2022 4:51 AM RN PALLIATIVE CARE Inhaled Oxygen Concentration - - Weight 54.4 kg (120 lb) 10/08/2022 3:29 AM RN PALLIATIVE CARE Height 167.6 cm (5' 6) 10/08/2022 3:29 AM RN PALLIATIVE CARE Body Mass Index 19.37 10/08/2022 3:29 AM RN PALLIATIVE CARE Plan of Treatment Health Maintenance Due Date [...] patient's age to complete this topic Insurance [facility] Care Teams Straightener Gun [employer] Relationship Specialty Start Date End Date Gregory Cash MD [address] [place] [address] PCP - General Family Practice 01/26/24
[2025-02-21 10:39] VITALS: BP 106/69; PULSE 94; RESP 16; TEMP 36.4; O2SAT 98; BMI 24.0
--- NOTE | 2025-02-21 11:38 | ED.GENADULT ---
HPI - General Adult General Chief complaint: Headache/Migraine Stated complaint: 24 weeks ; migraine Time Seen by Provider: 02/21/25 11:04 History of Present Illness HPI narrative: This is a pleasant 24-year-old female who is 24 weeks . She has not had any serious complications of but has had a lot of trouble with nausea and vomiting throughout her 1st and 2nd trimester so far. She has Zofran that she uses p.r.n. at home. Past medical history includes hypothyroidism, chronic pelvic pain endometriosis, migraine headaches (has headaches fairly often). She presents to the ER after [facility]. She has had a headache that seems typical for 1 of her usual migraines for the past 4 days. It started atraumatically and not abruptly a few days ago. It was associated with floating black spots in her vision when it started which is typical for her usual visual aura with her migraine. It has been located in the usual spot of her migraines which is sort of in the front and throughout her head. It has been associated with nausea but not a lot of vomiting. No fever. No cough. No stuffy nose. No sore throat. Urination has been normal. She has been doing her best to try to treat her headache by alternating Tylenol and her prescription butalbital/caffeine. Typically when she has migraine she would also treat with ibuprofen, but she has been avoiding that because of her . Her symptoms have not been going away for the past 4 days so she called the triage line. They sent her to the ER because she was failing her outpatient treatment options. Related Data Home Medications ?Medication ?Instructions ?Recorded ?Confirmed docosahexaenoic acid 200 mg mg PO 11/14/24 02/20/25 capsule ( DHA) cetirizine 5 mg tablet 5 mg PO QDAY PRN 11/28/24 02/20/25 Previous Rx's ?Medication ?Instructions ?Recorded posnnkawea-zjhpxhtuoiaxu-bgxsivzt 1 tab PO Q6H PRN pain #10 tabs 01/23/25 50 mg-325 mg-40 mg tablet levothyroxine 25 mcg tablet 25 mcg PO QDAY #90 tabs 01/23/25 ondansetron 4 mg disintegrating 4 mg PO Q6-8H PRN nausea and 01/23/25 tablet vomiting #30 tabs Allergies Allergy/AdvReac Type Severity Reaction Status Date / Time No Known Drug Allergies Allergy Verified 02/20/25 11:33 [facility] Medical History Vaginal bleeding, abnormal ?N93.9 - Abnormal uterine and vaginal bleeding, unspecified (ICD-10) Nexplanon removal ?Z30.46 - Encounter for surveillance of implantable subdermal contraceptive (ICD-10) No significant past medical history Surgical History No significant past surgical history Family History Other Endometriosis Social History Narrative: Patient works at [employer]. Single. Nonsmoker. Alcohol use: 1-2 per week. No illicit drug use. What is your current living situation?: I presently have a place to live Problems where you live: no known problems In the past 12 months, utilities in danger of being shut off: no In past 12 months, lack of transportation kept you from medical appts, meetings, work, or getting things needed for daily living: no In the past 12 mos, have been you worried that your food would run out before you had money to buy more?: never true In the past 12 mos, the food you bought just didn't last and you didn't have money to buy more?: never true Smoking Status: Never smoker Do you use any of these nicotine containing products: Vaping Products Second hand tobacco smoke exposure: No How often do you have a drink containing alcohol: 2-3 times a week How many standard drinks containing alcohol do you have on a typical day: 3 or 4 How often do you have six or more drinks on one occasion: Monthly AUDIT-C Alcohol total score: 6 Non-prescribed substance use: marijuana (any form) and crack/cocaine How often does anyone, including family, friends and others, physically hurt you: never How often does anyone, including family, friends and others, insult or talk down to you: never How often does anyone, including family, friends and others, threaten you with harm: never How often does anyone, including family, friends and others, scream or curse at you: never Exam Narrative: Exam Narrative: Constitutional: Appears well-developed and well-nourished. Alert. Conversant. Non toxic. HENT: Head: Atraumatic. No depressed skull fracture, Raccoon Eyes, Rolle's sign, or hemotympanum. Face normal. TMs normal Nose: Nose normal. Mouth/Throat: Oral mucosa is clear and moist. no trismus. Pharynx normal. Tonsils symmetric. No tonsillar enlargement, erythema, or exudate. Eyes: Conjunctivae normal. EOM normal. Pupils equal, round, and reactive to light. No scleral icterus. Neck: Normal range of motion. Neck supple. No tracheal deviation present. Cardiovascular: Normal rate, regular rhythm. No gallop. No friction rub. No murmur heard. Symmetric radial artery pulses Pulmonary/Chest: Effort normal. No stridor. No respiratory distress. No wheezes. No rales. No rhonchi . No tenderness. Abdominal: Soft. Bowel sounds normal. No distension. No mass. No tenderness. No rebound. No guarding. Musculoskeletal: RUE: Normal range of motion. No tenderness. No deformity LUE: Normal range of motion. No tenderness. No deformity RLE: Normal range of motion. No edema. No tenderness. No deformity LLE: Normal range of motion. No edema. No tenderness. No deformity Lymph: No cervical adenopathy. Neurological: Alert and oriented to person, place, and time. Normal strength. CN II-VII intact. No sensory deficit. GCS eye subscore is 4. GCS verbal subscore is 5. GCS motor subscore is 6. Normal coordination Skin: Skin is warm and dry. No rash noted. No pallor. Normal capillary refill. Psychiatric: Normal mood. Normal affect. Const: Vital Signs, click to edit/add: Vital Signs - 24 hr 02/21/25 10:39 Temperature 97.5 F L Pulse Rate [Pulse Oximeter] 94 Respiratory Rate 16 Blood Pressure [Ri ght Upper Arm] 106/69 Pulse Oximetry 98 Oxygen Delivery Me thod Room Air Course Course ED Course: Recheck-13 10. Says her headache is perhaps slightly better but largely unimproved after 1st round of meds. I am able to complete a more comprehensive exam-as above. No concerning findings or focal deficits. Additional meds ordered. Will add on some droperidol for headache. Patient says she has had good success with migraine cocktail including Toradol in the past. At this point she is 24 weeks . NSAIDs are relatively contraindicated during especially 3rd trimester due to potential risks on the ductus arteriosus. That is not really a concern at this stage in . Also NSAIDs, when used over long-term can have potential risk on kidney function and cause oligohydramnios. No good safety data is on single dose NSAIDs. Per my literature search through the [employer] software, single dose and said can be considered during 1st and 2nd trimester and a risk/benefit based analysis. We decided to go ahead with 1 dose of Toradol. Would not recommend further doses of Toradol or long-term course of NSAIDs. Discussed this with the patient and she agrees. Reevaluation(s) Reevaluation #1: [id number]. Says she is feeling quite a bit better. Headache is not resolved but is much improved. Although throbbing her temples is gone. We discussed options. The patient feels that she is at the point where she wants to go home to take a nap and suspects that after she naps the headache will be completely resolved. She does not want any more medications for now. Vital Signs Vital signs: Initial Vital Signs Temperature 97.5 F L 02/21/25 10:39 Temperature Source Temporal Artery Scan 02/21/25 10:39 Pulse Rate 94 02/21/25 10:39 Respiratory Rate 16 02/21/25 10:39 Blood Pressure 106/69 02/21/25 10:39 Blood Pressure Mean 81 02/21/25 10:39 Blood Pressure Position Sitting 02/21/25 10:39 Pulse Oximetry 98 02/21/25 10:39 Oxygen Delivery Method Room Air 02/21/25 10:39 Vital Signs Temperature 97.5 F L 02/21/25 10:39 Pulse Rate 94 02/21/25 10:39 Respiratory Rate 16 02/21/25 10:39 Blood Pressure 106/69 02/21/25 10:39 Pulse Oximetry 98 02/21/25 10:39 Oxygen Delivery Method Room Air 02/21/25 10:39 Temperature 97.5 F L 02/21/25 10:39 Pulse Rate 94 02/21/25 10:39 Respiratory Rate 16 02/21/25 10:39 Blood Pressure 106/69 02/21/25 10:39 Pulse Oximetry 98 02/21/25 10:39 Oxygen Delivery Method Room Air 02/21/25 10:39 Medications Administered Medications: Discontinued Medications Generic Name Dose Route Start Last Admin Trade Name Teresa PRN Reason Stop Dose Admin Acetaminophen 1,000 mg 02/21/25 12:26 02/21/25 12:48 Acetaminophen 500 Mg Tablet PO 02/21/25 12:27 1,000 mg ONCE ONE Administration Diphenhydramine HCl 12.5 mg 02/21/25 11:37 02/21/25 12:01 Diphenhydramine 50 Mg/Ml Inj IVP 02/21/25 11:38 12.5 mg ONCE ONE Administration Droperidol 2.5 mg 02/21/25 13:34 02/21/25 14:11 Droperidol 2.5 Mg/Ml Inj IV 02/21/25 13:35 2.5 mg ONCE ONE Administration Sodium Chloride 1,000 mls @ 1,000 mls/hr 02/21/25 11:45 02/21/25 12:48 0.9 % Sodium Chloride 1000 Ml IV 02/21/25 12:44 Infused .Q1H BRUCE Infusion Ketorolac Tromethamine 15 mg 02/21/25 13:34 02/21/25 14:11 Ketorolac 15 Mg/Ml Inj IVP 02/21/25 13:35 15 mg ONCE ONE Administration Metoclopramide HCl 10 mg 02/21/25 11:37 02/21/25 12:01 Metoclopramide Hcl 5 Mg/Ml Inj IVP 02/21/25 11:38 10 mg ONCE ONE Administration Medical Decision Making [facility] Narrative Medical decision making narrative: s patient presents with a headache. A broad differential diagnosis was considered including tension, migraine, analgesic rebound, occipital neuralgia, etc. Other less common but serious causes considered included meningitis, encephalitis, subarachnoid bleed, stroke, tumor, etc. The patient has no signs of serious headache etiologies at this point. Onset of the headache, visual aura associated on onset and location of her headache seems typical for her previous migraines. What is different about this headache is at its lasted for several days and has not gone away because she has not been able to take all of her normal home meds. Specifically she has not been able to take ibuprofen or NSAIDs. Blood pressure is normal. She is not febrile. She has no focal neurologic deficits. No advanced imaging is indicated, nor is CT/lumbar puncture for SAH. At this point I do not think the headache relates to meningitis, cerebral aneurysm, trauma, or complications such as press or preeclampsia. Patient's questions were answered and they feel improved after above interventions in ED. headache is not completely 100% resolved but is largely improved. Discussed options with the patient and she is requesting discharge because she feels that with a few hours of rest the headache will completely resolved. Supportive outpatient management is therefore indicated. Headache precautions given for home. Specifically, told her to come back to the ER if she has any other new concerning symptoms or if her headache does not completely resolve. Even if it does get better, recommended outpatient follow-up with her team for recheck next week. Discharge Plan Discharge Clinical Impression: Headache Patient Disposition: Home, Self-Care Condition: Stable Instructions: Acute Headache (DC) Additional Instructions: As we discussed, if your headache comes back or if you have any other concerning symptoms such as nausea, fever, blurry vision, confusion, or any other problems, please return to the ER right away. Even if you get better, please follow-up with your OB team for recheck next week. It is okay to use your regular medications such as acetaminophen if needed for mild headaches. Prescriptions: No Action cetirizine 5 mg tablet 5 mg PO QDAY PRN levothyroxine 25 mcg tablet 25 mcg PO QDAY Qty: 90 3RF hkiovggdps-taqslyiakulgg-liyw 50-325-40 mg tablet 1 tab PO Q6H PRN (Reason: pain) Qty: 10 0RF ondansetron 4 mg tablet,disintegrating 4 mg PO Q6-8H PRN (Reason: nausea and vomiting) Qty: 30 0RF DHA 200 mg capsule PO Follow Up/Referrals: Gregory Cash MD [Primary Care Provider, Family Practice] Stand Alone Forms: BlogCN Info Instructions
[2025-02-21] MEDS: METOCLOPRAMIDE HCL 5 MG/ML INJ 10 MG IVP (12:01)
[2025-02-21] MEDS: diphenhydrAMINE 50 MG/ML inj 12.5 MG IVP (12:01)
[2025-02-21] MEDS: 0.9 % SODIUM CHLORIDE 1000 ml 1,000 ML IV (12:01)
[2025-02-21] MEDS: ACETAMINOPHEN 500 MG TABLET 1000 MG PO (12:48)
[2025-02-21] MEDS: droperidoL 2.5 MG/ML inj IV (14:11)
[2025-02-21] MEDS: KETOROLAC 15 MG/ML inj IVP (14:11)
== END 2025-02-21 15:05 | disposition home or self-care (01) ==
PROVIDERS: Emergency Provider Emergency Medicine; PCP Family Medicine
DX: R51.9 Headache, unspecified (principal); Z3A.24 24 weeks gestation of pregnancy
CPT/HCPCS: 96374; 96375; 99283; 99284; A9270; J1200; J1790; J1885; J2765; J7030

== ENCOUNTER 2025-02-28 12:17 | Emergency (ER) | payer BC, SELFPAY ==
--- OUTSIDE RECORDS SUMMARY | 2025-02-28 12:19 | XMS_ITS | Clinical Summary ---
Author Organization [facility] Address [address], [place] [address] Care Team Providers Care Property Accountant Name Role Phone Gregory Cash MD Primary Care Provider [phone] Source Comments You are receiving this document as you are listed as the primary care provider,follow-up provider, or the patient has been referred to you for consultation.This is in compliance with the Medicare and[facility],which states Providers who [...] on file Legal Sex Female 3:22 AM PROGRAM ADVISOR Gender Identity Not on file Sexual Orientation Not on file Last Filed Vital Signs Vital Sign Reading Time Taken Comments Blood Pressure 129/77 10/08/2022 4:51 AM PROGRAM ADVISOR Pulse 97 10/08/2022 4:51 AM PROGRAM ADVISOR Temperature 36.8 C (98.2 F) 10/08/2022 3:29 AM PROGRAM ADVISOR Respiratory Rate 16 10/08/2022 4:51 AM PROGRAM ADVISOR Oxygen Saturation 99% 10/08/2022 4:51 AM PROGRAM ADVISOR Inhaled Oxygen Concentration - - Weight 54.4 kg (120 lb) 10/08/2022 3:29 AM PROGRAM ADVISOR Height 167.6 cm (5' 6) 10/08/2022 3:29 AM PROGRAM ADVISOR Body Mass Index 19.37 10/08/2022 3:29 AM PROGRAM ADVISOR Plan of Treatment Health Maintenance Due Date [...] patient's age to complete this topic Insurance [facility] Care Teams Property Accountant Relationship Specialty Start Date End Date Gregory Cash MD [address] [place] [address] PCP - General Family Practice 01/26/24
--- OUTSIDE RECORDS SUMMARY | 2025-02-28 12:19 | XMS_ITS | Clinical Summary ---
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 Not on file Not on file Obstetrics History Last Filed Vital Signs Vital Sign Reading Time Taken Comments Blood Pressure 137/72 10/02/2024 5:20 AM MARINE SUPERINTENDENT Pulse 85 10/02/2024 5:20 AM MARINE SUPERINTENDENT Temperature 36.7 C (98.1 F) 10/02/2024 4:54 AM MARINE SUPERINTENDENT Respiratory Rate 16 10/02/2024 4:54 AM MARINE SUPERINTENDENT Oxygen Saturation 97% 10/02/2024 5:20 AM MARINE SUPERINTENDENT Inhaled Oxygen Concentration - - Weight 57.8 kg (127 lb 8 oz) 10/02/2024 4:54 AM MARINE SUPERINTENDENT Height 165.1 cm (5' 5) 10/02/2024 4:54 AM MARINE SUPERINTENDENT Body Mass Index 21.22 10/02/2024 4:54 AM MARINE SUPERINTENDENT Plan of Treatment Health Maintenance Due Date [...] Comments SCAN-ULTRASOUND REPORT 01/26/2025 12:00 AM CDT CHIEF SERVICE OBSERVER THIN PREP PAP SCREEN IMAGED Routine 01/12/2024 8:43 AM CDT CHLAMYDIA TRACH PROBE Routine 12/09/2016 11:54 AM CDT Screening for chlamydial disease from Last 3 Months or Most Recently Relevant to Health Maintenance Results * SCAN-ULTRASOUND REPORT (01/26/2025 12:00 AM CDT) Anatomical Region Laterality Modality Other us Scanner OTHER Final Result * (ABNORMAL) CHIEF SERVICE OBSERVER THIN PREP PAP SCREEN IMAGED (01/12/2024 8:43 AM CDT) Case Report Gynecologic Cytology Report Case: [id number] Authorizing Provider: Robina Lombardi PA-C Collected: 01/12/2024 0843 Ordering Location: [facility] Received: 01/13/2024 0837 First Screen: Maite Castellanos Pathologist: Jeremy Farnsworth MD Specimen: CHIEF SERVICE OBSERVER ThinPrep Vial Screening, Cervical 01/25/2024 4:21 PM CDT [employer] ENTRAL LABORATORY INTERPRETATION/ RESULT LOW GRADE SQUAMOUS INTRAEPITHELIAL LESION (LSIL)(A) (none) 01/25/2024 4:21 PM CDT [facility] at 1621 CDT SPECIMEN ADEQUACY Satisfactory for evaluation No endocervical component seen 01/25/2024 4:21 PM CDT [employer] ENTRAL LABORATORY HPV REQUEST HPV not requested 2023 4:21 PM CDT [facility] ENTRAL LABORATORY Date of LMP 01/25/2024 4:21 PM CDT [facility] Comment:unk Last Pap Date 01/21/2023 01/25/2024 4:21 PM CDT [facility] Last Pap Result LSIL 4:21 PM CDT [facility] [employer] [facility]ORY[facility] ENTRAL LABORATORY Abnormal Pap or Bivalve Bx in last 5 years No 01/25/2024 4:21 PM CDT [facility] Menstrual Status Regular Periods 01/25/2024 4:21 PM CDT [facility] Bivalve Bx Done Today No 01/25/2024 4:21 PM CDT [facility] [employer] [facility] ENTR[facility]AT[facility] Additional Information 01/25/2024 4:21 PM CDT [facility] Comment: Interpreted at [facility], Central Laboratory - [address], [place] [address] Automated Review Successful 01/25/2024 4:21 PM CDT [facility]- ENTRAL LABORATORY Comment:Specimen processed s uccessfully by automated sand cutter operator device, ThinPrep Imaging System, [employer] Note The pap test is a [...] lesions. 01/25/2024 4:21 PM CDT [facility] ENTRAL LAB[facility]AT[facility] Other (Cervical) 01/12/2024 8:43 AM CDT 01/13/2024 8:37 AM CDT Robina Celestino Lombardi PA-C PATHOLOGY/CYTOLOGY Final R esult [facility] [address] [place] [address], [place] * CHLAMYDIA TRACH PROBE (12/09/2016 11:54 AM CDT) CHLAMYDIA PROBE Negative 12/10/2016 12:52 PM CDT [facility] TRAL LABORATORY Other URINE SPECIMEN / Unknown Non-Blood / Unknown 12/09/2016 11:54 AM CDT 12/09/2016 11:54 AM CDT [facility] Final Resu lt [facility] [address] [place] [address], [place] from Last 3 Months or Most Recently Relevant to Health Maintenance Insurance [facility] CHOICE CARE Care Teams Airport Guide Relationship Specialty Start Date End Date Gregory Cash MD PCP - General 07/15/09
[2025-02-28 12:24] VITALS: BP 112/70; PULSE 95; RESP 16; TEMP 37.1; O2SAT 97; BMI 24.0
--- NOTE | 2025-02-28 12:37 | ED.GENADULT ---
HPI - General Adult General Date Seen: 02/28/25 Chief complaint: Rib Pain Stated complaint: Chest/rib pain Time Seen by Provider: 02/28/25 12:35 History of Present Illness HPI narrative: 24 yo F who is . She has a past medical history of hypothyroidism (on Synthroid) cystitis, endometriosis, headaches and migraine. I saw her here in the ER 1 week ago for bad headache. She says that overall headaches are doing better but she still has them fairly frequently. She notes that about 5 weeks ago she fell and injured her midportion of her back and her bilateral lower rib cage. Since then she has been having pain affecting the back of both side of her ribs and sometimes radiating around to the front. She thought she probably just bruised herself and so was trying to treat her pain supportively and has not gone to the doctor to get it checked out. Since not going away and in fact is getting steadily worse over time, she called her primary care clinic to get a checkup for which she felt like it is time to probably get it checked out. She was referred to the ER by her clinic was they were concerned that she might be having a lung problem or might be having a gallbladder problem. Her pain has been present for the past 5 weeks or so and typically gets worse when she is doing physical activity at work. 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 She notes that the pain tends to get worse throughout her shift and then tends to be at its peak near the end of her 12 hour shift in the evening. The pain yesterday and for the past few days been more intense and has been so severe that it feels like someone has reaching around from behind her grabbing her lower ribcage and squeezing her. She is not really short of breath. She is not really nauseous. No fever. She is not coughing. Sometimes when the pain is tight and squeezing she does feel little bit short of breath. She has been trying to treat her pain with Tylenol and with hot showers. She feels that sometimes the warm water helps her muscles relax. She has not had any significant swelling in her legs or ankles. No numbness or tingling or weakness in her legs. Urination has been normal. Bowel movements have been normal. She is not having any lower abdominal pain. No per uterine cramping. No vaginal fluid leakage or bleeding. When the pain is severe it does affect her epigastrium and both upper quadrant of her abdomen. She has no history of DVT or PE. No recent travel or immobilization. She currently is using acetaminophen as well as butalbital/caffeine for her headaches. She is on cetirizine for allergies, Zofran p.r.n., Synthroid. She does not take any blood thinners. No regular use of NSAIDs while she is . Related Data Home Medications ?Medication ?Instructions ?Recorded ?Confirmed docosahexaenoic acid 200 mg mg PO 11/14/24 02/20/25 capsule ( DHA) cetirizine 5 mg tablet 5 mg PO QDAY PRN 11/28/24 02/28/25 Previous Rx's ?Medication ?Instructions ?Recorded [id number]-yqmxbqxpapcsg-rvfknyxb 1 tab PO Q6H PRN pain #10 tabs 01/23/25 50 mg-325 mg-40 mg tablet levothyroxine 25 mcg tablet 25 mcg PO QDAY #90 tabs 01/23/25 ondansetron 4 mg disintegrating 4 mg PO Q6-8H PRN nausea and 01/23/25 tablet vomiting #30 tabs cephalexin 250 mg capsule 500 mg (2 x 250 mg) PO BID #14 caps 02/28/25 Allergies Allergy/AdvReac Type Severity Reaction Status Date / Time No Known Drug Allergies Allergy Verified 02/28/25 12:22 [facility] Medical History Vaginal bleeding, abnormal ?N93.9 - Abnormal uterine and vaginal bleeding, unspecified (ICD-10) Nexplanon removal ?Z30.46 - Encounter for surveillance of implantable subdermal contraceptive (ICD-10) No significant past medical history Surgical History No significant past surgical history Family History Other Endometriosis Social History Narrative: Patient works at [employer]. Single. Nonsmoker. Alcohol use: 1-2 per week. No illicit drug use. What is your current living situation?: I presently have a place to live Problems where you live: no known problems In the past 12 months, utilities in danger of being shut off: no In past 12 months, lack of transportation kept you from medical appts, meetings, work, or getting things needed for daily living: no In the past 12 mos, have been you worried that your food would run out before you had money to buy more?: never true In the past 12 mos, the food you bought just didn't last and you didn't have money to buy more?: never true Smoking Status: Never smoker Do you use any of these nicotine containing products: Vaping Products Second hand tobacco smoke exposure: No How often do you have a drink containing alcohol: never AUDIT-C Alcohol total score: 0 Non-prescribed substance use: former substance user, marijuana (any form) and crack/cocaine How often does anyone, including family, friends and others, physically hurt you: never How often does anyone, including family, friends and others, insult or talk down to you: never How often does anyone, including family, friends and others, threaten you with harm: never How often does anyone, including family, friends and others, scream or curse at you: never Exam Narrative: Exam Narrative: Constitutional: Appears well-developed and well-nourished. Alert. Conversant. Non toxic. HENT: Head: Atraumatic. Nose: Nose normal. Mouth/Throat: Oral mucosa is clear and moist. no trismus. Pharynx normal. Tonsils symmetric. No tonsillar enlargement, erythema, or exudate. Eyes: Conjunctivae normal. EOM normal. Pupils equal, round, and reactive to light. No scleral icterus. Neck: Normal range of motion. Neck supple. No tracheal deviation present. No JVD Cardiovascular: Normal rate, regular rhythm. No gallop. No friction rub. No murmur heard. Symmetric radial artery pulses Pulmonary/Chest: Effort normal. No stridor. No respiratory distress. No wheezes. No rales. No rhonchi . The bilateral lower posterior lateral rib cage tenderness. No bruising. No rash. No crepitus. Abdominal: Soft. Bowel sounds normal. No distension. Gravid nontender uterus just above the umbilicus consistent with dates. Epigastric, mild right upper quadrant, mild left upper quadrant tenderness. No rebound. No guarding. Musculoskeletal: RUE: Normal range of motion. No tenderness. No deformity LUE: Normal range of motion. No tenderness. No deformity RLE: Normal range of motion. No edema. No tenderness. No deformity LLE: Normal range of motion. No edema. No tenderness. No deformity Neurological: Alert and oriented to person, place, and time. Normal strength. CN II-VII intact. No sensory deficit. GCS eye subscore is 4. GCS verbal subscore is 5. GCS motor subscore is 6. Normal coordination Skin: Skin is warm and dry. No rash noted. No pallor. Normal capillary refill. Sensory: Normal light touch sensation bilaterally on the anteromedial thigh (L3), medial malleolus (L4), dorsal first web space (L5), lateral malleolus (S1). Strength: 5/5 strength hip flexors (L3) on the right and left 5/5 strength in the quadriceps (L4) on the right and left 5/5 strength in the tibialis anterior 5/5 strength in the EHL (L5) on the right and left 5/5 strength in the gastrocnemius (S1) on the right and left 5/5 strength in the hamstring on the right and left Negative straight leg raise bilaterally. Psychiatric: Initially somewhat tearful and her 1st opinion to me is that she is, ?just so over [being ]. Subsequently, normal mood. Normal affect. Denies abuse or physical harm. Const: Vital Signs, click to edit/add: Vital Signs - 24 hr 02/28/25 12:24 02/28/25 14:17 02/28/25 16:32 Temperature 98.7 F Pulse Rate 93 89 Pulse Rate [Pulse Oximeter] 95 Respiratory Rate 16 16 16 Blood Pressure 112/73 112/72 Blood Pressure [Ri ght Upper Arm] 112/70 Pulse Oximetry 97 99 100 Oxygen Delivery Me thod Room Air Room Air Room Air Course Vital Signs Vital signs: Initial Vital Signs Temperature 98.7 F 02/28/25 12:24 Temperature Source Temporal Artery Scan 02/28/25 12:24 Pulse Rate 95 02/28/25 12:24 Pulse Rhythm Regular 02/28/25 12:24 Respiratory Rate 16 02/28/25 12:24 Blood Pressure 112/70 02/28/25 12:24 Blood Pressure Mean 84 02/28/25 12:24 Blood Pressure Position Sitting 02/28/25 12:24 Pulse Oximetry 97 02/28/25 12:24 Oxygen Delivery Method Room Air 02/28/25 12:24 Vital Signs Temperature 98.7 F 02/28/25 12:24 Pulse Rate 95 02/28/25 12:24 Respiratory Rate 16 02/28/25 12:24 Blood Pressure 112/70 02/28/25 12:24 Pulse Oximetry 97 02/28/25 12:24 Oxygen Delivery Method Room Air 02/28/25 12:24 Temperature 98.7 F 02/28/25 12:24 Pulse Rate 89 02/28/25 16:32 Respiratory Rate 16 02/28/25 16:32 Blood Pressure 112/72 02/28/25 16:32 Pulse Oximetry 100 02/28/25 16:32 Oxygen Delivery Method Room Air 02/28/25 16:32 Medications Administered Medications: Discontinued Medications Generic Name Dose Route Start Last Admin Trade Name Freq PRN Reason Stop Dose Admin Acetaminophen 1,000 mg 02/28/25 13:02 02/28/25 13:33 Acetaminophen 500 Mg Tablet PO 02/28/25 13:03 1,000 mg ONCE ONE Administration Sodium Chloride 1,000 mls @ 1,000 mls/hr 02/28/25 14:15 02/28/25 15:14 0.9 % Sodium Chloride 1000 Ml IV 02/28/25 15:14 Infused .Q1H BRUCE Infusion Ondansetron HCl 4 mg 02/28/25 14:07 02/28/25 14:12 Ondansetron 2 Mg/Ml Inj IVP 02/28/25 14:08 4 mg ONCE ONE Administration Medical Decision Making [facility] Narrative Medical decision making narrative: Patient is referred to the ER from her primary care clinic because she has about a 5 week history of pain involving her lower thoracic spine and bilateral lower rib cage and also sometimes her upper abdomen. Pain initially started as she had a slip and fall. It sounds like the pain has been bilateral throughout and not really unilateral to suggest clearly a history of rib fractures. Differential is quite broad. Pulmonary: Consider possible rib fracture or injury. Given would hold off on CT scan to look for rib fractures. Chest x-ray shows no definite abnormality. No definite rib fracture or signs of healing rib fracture. Also consider nontraumatic causes of lung pain. No cough or fever to suggest lung infection or pneumonia. Chest x-ray is negative for infiltrate. Chest x-ray does not show any evidence for pleural effusion or pulmonary edema. No evidence for pneumothorax.. Mediastinum is normal on the x-ray. She is not really having ripping and tearing pain. She has symmetric pulses in her arms or legs on exam. No evidence for a perfusion deficit to suggest aortic dissection. At this point we feel that the radiation risk from a aorta protocol chest/abdomen CT would outweigh the benefit. The consider possible PE. She is overall low risk.. She is low risk by years criteria. D-dimer is 0.59. Based on the years criteria pathway D-dimer less than 1.000 in this clinical setting is sufficient to rule out PE. Genitourinary: She is not really having any urinary symptoms. No pain localizing to 1 flank or the other to suggest pyelonephritis or kidney stone. Initial Urinalysis shows 10-25 wbc's/HPF and 1+ leukocyte esterase, many bacteria, but also moderate squamous epithelial cells. Repeat roller cleaner catch urine sample shows ongoing signs of pyuria and bacteriuria but also still squamous epithelial cells. At this point or night able to get a more clean catch sample short of catheterization and patient would prefer to avoid that. Therefore will start her on cephalexin 500 b.i.d. for 7 days to cover her for potential UTI. She is not having any lower abdominal pain, vaginal bleeding or vaginal fluid leakage or other symptoms of miscarriage, labor, chorioamnionitis causing her pain. Neurologic: She did fall raising concern for potential thoracic spine fracture. Given we did obtain a chest x-ray but would hold off on dedicated T-spine x-rays or CT scan. She is not having any pain lower in lumbar spine. Lateral view of the chest x-ray does not show any evidence for lower thoracic compression fracture. She is not having any neurologic symptoms in her legs or affecting her bowel or bladder to raise concern for cauda equina, lumbar radiculopathy, or acute spinal cord injury. GI: Consider possible pancreatitis or biliary colic causing her pain wrapping around her mid torso. Lipase is normal. LFTs are normal. Gallbladder ultrasound shows no evidence for stones. Lab Data Labs: Lab Results 02/28/25 02/28/25 02/28/25 Range/Units 13:20 13:25 14:58 WBC 8.79 (4.50-11.00) K/uL RBC 3.76 L (4.00-5.20) m/uL Hgb 11.4 L (12.0-16.0) gm/dL Hct 34.3 (33.0-51.0) % MCV 91 (80-100) fL MCH 30 (26-34) pg MCHC 33 (32-36) gm/dL RDW Coeff of Leonid 12.4 (11.5-15.5) % Plt Count 196 (140-440) K/uL Neut % (Auto) 76.1 H (42.0-72.0) % Lymph % (Auto) 15.4 L (20-44) % Dillon % (Auto) 6.3 (0.0-11.0) % Eos % (Auto) 1.3 (0.0-7.0) % Baso % (Auto) 0.2 (0.0-3.0) % Neut # (Auto) 6.70 (1.7-7.0) K/uL Lymph # (Auto) 1.40 (0.90-2.90) K/uL Dillon # (Auto) 0.60 (0.00-0.90) K/UL Eos # (Auto) 0.11 (0.00-0.50) K/uL Baso # (Auto) 0.02 (0.00-0.30) K/uL Abs Immat Gran (auto) 0.06 (0.00-0.30) K/uL Imm/Tot Granulo (auto) 0.7 % D-Dimer Quant (PE/DVT) 0.59 H (0.00-0.50) ug/ml Sodium 135 (135-149) mmol/L Potassium 3.8 (3.6-5.1) mmol/L Chloride 104 (96-114) mmol/L Carbon Dioxide 26 (20-32) mmol/L Anion Gap 5 L (7-15) mEq/L BUN 11 (5-24) mg/dL Creatinine 0.5 (0.5-1.5) mg/dL Estimated Creat Clear 163.82 Estimated GFR 135 ml/min Glucose 92 (60-115) mg/dL Calcium 9.2 (8.4-10.6) mg/dL Total Bilirubin 1.1 (0.1-1.5) mg/dL AST 26 (12-35) U/L ALT 18 (4-35) U/L Alkaline Phosphatase 49 (40-150) U/L Troponin I < 0.01 (0.01-0.04) ng/mL Total Protein 7.0 (6.0-8.3) g/dL Albumin 4.1 (3.3-5.0) g/dL Lipase 57 (23-300) U/L Urine Color Yellow Yellow (Yellow) Urine Appearance Clear Clear (Clear) Urine pH 6.5 6.5 (5.0-8.5) Ur Specific Singer 1.025 1.025 (1.000-1.030) Urine Protein Trace A Trace A (Negative) Urine Glucose (UA) Negative Negative (Negative) Urine Ketones Negative Negative (Negative) Urine Blood Negative Negative (Negative) Urine Nitrite Positive A Negative (Negative) Urine Bilirubin Negative Negative (Negative) Urine Urobilinogen 0.2 0.2 (0.2-1.0) Ur Leukocyte Esterase 1+ A Trace A (Negative) Urine RBC 0-2 2-5 A (0-2) Urine WBC 10-25 A 10-25 A (0-5) Ur Squamous Epith Cells Moderate A Moderate A (None-Few) Other Sediment CA OXALATE CRYSTALS (None) Urine Bacteria Many A Many A (None) Urine Mucus Few A (None) Imaging Data RUQ US: Attestation: I have reviewed the pertinent imaging results. Radiologist's impression: Impression: Unremarkable right upper quadrant ultrasound. Chest x-ray: Attestation: I have reviewed the pertinent imaging results. Radiologist's impression: IMPRESSION: No acute thoracic findings. ECG Data Attestation: I personally reviewed and interpreted this ECG as follows: Interpretation: Normal sinus rhythm Rate: 86 TX: 134 QRS axis: Normal ST segment/T wave: No ST segment elevation or depression QTc: 449 Discharge Plan Discharge Clinical Impression: Rib pain, Back pain, UTI (urinary tract infection) Patient Disposition: Home, Self-Care Condition: Stable Instructions: Back Pain (ED), Urinary Tract Infection in (ED) Additional Instructions: As we discussed, so far your workup for the pain in your ribs and back looks reassuring. We do not see any sign of broken bones, pancreas infection, gallstones, or other serious problems. However urine sample is abnormal in suggest you may have a bladder infection. Please start on the antibiotic today to treat your bladder infection. If you have any worsening symptoms such as trouble urinating, pelvic pain, vaginal bleeding or cramping, fever, or if your kidneys are hurting, please return to the ER or see your OB docs for recheck right away. Even if you are getting better, please follow-up with your OB Clinic within the next 3-5 days. Prescriptions: New cephalexin 250 mg capsule 500 mg PO BID Qty: 14 0RF No Action cetirizine 5 mg tablet 5 mg PO QDAY PRN levothyroxine 25 mcg tablet 25 mcg PO QDAY Qty: 90 3RF nlgncwqkni-ipeaubvjonwzn-zcxx 50-325-40 mg tablet 1 tab PO Q6H PRN (Reason: pain) Qty: 10 0RF ondansetron 4 mg tablet,disintegrating 4 mg PO Q6-8H PRN (Reason: nausea and vomiting) Qty: 30 0RF DHA 200 mg capsule PO Follow Up/Referrals: Gregory Cash MD [Primary Care Provider, Family Practice] Stand Alone Forms: Work/School Release, [facility] Info Instructions
--- NOTE | 2025-02-28 13:00 | CRLHL7_ITS ---
For Patients: As a result of the Century Cures Act, medical imaging exams and procedure reports are released immediately into your electronic medical record. You may view this report before your referring provider. If you have questions, please contact your health care provider. Indication: Right upper quadrant abdomen pain TECHNIQUE: Ultrasound abdomen limited. Sonographic images of the right upper quadrant were obtained using jacinto-scale and color Doppler images. Comparison: None FINDINGS: Gallbladder: No stones or sludge. Normal wall thickness. No pericholecystic fluid. Common bile duct: 2 mm. Impression: Unremarkable right upper quadrant ultrasound. Dictated by Natan Mejia MD @ 02/28/2025 1:27:35 PM (Electronically Signed)
--- NOTE | 2025-02-28 13:00 | CRLHL7_ITS ---
For Patients: As a result of the Cures Act, medical imaging exams and procedure reports are released immediately into your electronic medical record. You may view this report before your referring provider. If you have questions, please contact your health care provider. INDICATION: Chest and rib pain COMPARISON: 10/21/2024 chest radiograph TECHNIQUE: Frontal and lateral radiographic views of the chest. FINDINGS: No pneumothorax. No pleural effusion. No definite focal pulmonary consolidation. Normal heart size. No evident acute displaced rib fracture. IMPRESSION: No acute thoracic findings. Dictated by Hasmukh Turner MD @ 02/28/2025 2:12:12 PM (Electronically Signed)
[2025-02-28 13:31] LABS: Basophils Absolute Auto 0.02 K/uL (0.00-0.30); Basophils Percent Auto 0.2 % (0.0-3.0); Eosinophils Absolute Auto 0.11 K/uL (0.00-0.50); Eosinophils Percent Auto 1.3 % (0.0-7.0); Hematocrit* 34.3 % (33.0-51.0); Hemoglobin* 11.4 gm/dL (12.0-16.0); Immature Granulocytes Abs Auto 0.06 K/uL (0.00-0.30); Immature Granulocytes Pct Auto 0.7 %; Lymphocytes Percent Auto 15.4 % (20-44); Mean Corpuscular HGB Conc 33 gm/dL (32-36); Mean Corpuscular Hemoglobin 30 pg (26-34); Mean Corpuscular Volume 91 fL (80-100); Monocytes Percent Auto 6.3 % (0.0-11.0); Neutrophils Percent Auto 76.1 % (42.0-72.0); Platelet Count* 196 K/uL (140-440); RDW Coefficient of Variation % 12.4 % (11.5-15.5); Red Blood Count* 3.76 m/uL (4.00-5.20); White Blood Count* 8.79 K/uL (4.50-11.00)
[2025-02-28] MEDS: ACETAMINOPHEN 500 MG TABLET 1000 MG PO (13:33)
[2025-02-28 13:36] LABS: Slide Review Reflex No
[2025-02-28 13:40] LABS: Appearance Urine Clear (Clear); Bilirubin Urine Negative (Negative); Blood Urine Negative (Negative); Color Urine Yellow (Yellow); Glucose Urine Negative (Negative); Ketones Urine Negative (Negative); Leukocyte Esterase Urine 1+ (Negative); Nitrite Urine Positive (Negative); Protein Urine Trace (Negative); Specific Gravity Urine 1.025 (1.000-1.030); Urobilinogen Urine 0.2 (0.2-1.0); pH Urine 6.5 (5.0-8.5)
[2025-02-28 13:51] LABS: D Dimer Quantitative* 0.59 ug/ml (0.00-0.50)
[2025-02-28 13:54] LABS: Albumin* 4.1 g/dL (3.3-5.0); Chloride* 104 mmol/L (96-114); Sodium* 135 mmol/L (135-149)
[2025-02-28 13:55] LABS: Potassium* 3.8 mmol/L (3.6-5.1)
[2025-02-28 13:55] LABS: Bacteria Urine Many; Mucus Urine Few; RBC Urine 0-2 (0-2); Squamous Epithelial Cell Urine Moderate (None-Few)
[2025-02-28 13:57] LABS: Alanine Aminotransferase* 18 U/L (4-35); Alkaline Phosphatase* 49 U/L (40-150); Anion Gap 5 mEq/L (7-15); Aspartate Amino Transferase* 26 U/L (12-35); Bilirubin Total* 1.1 mg/dL (0.1-1.5); Blood Urea Nitrogen* 11 mg/dL (5-24); Carbon Dioxide* 26 mmol/L (20-32); Creatinine* 0.5 mg/dL (0.5-1.5); Est. Creatinine Clearance* 163.82; Estimated Glomerular Filt Rate 135 ml/min; Lipase* 57 U/L (23-300)
[2025-02-28 13:58] LABS: Calcium* 9.2 mg/dL (8.4-10.6); Glucose* 92 mg/dL (60-115)
[2025-02-28 14:11] LABS: Troponin I* < 0.01 ng/mL (0.01-0.04)
[2025-02-28] MEDS: 0.9 % SODIUM CHLORIDE 1000 ml 1,000 ML IV (14:11)
[2025-02-28] MEDS: ONDANSETRON 2 MG/ML inj 4 MG IVP (14:12)
[2025-02-28 14:17] VITALS: BP 112/73; PULSE 93; RESP 16; O2SAT 99
[2025-02-28 15:02] LABS: Appearance Urine Clear (Clear); Bilirubin Urine Negative (Negative); Blood Urine Negative (Negative); Color Urine Yellow (Yellow); Glucose Urine Negative (Negative); Ketones Urine Negative (Negative); Leukocyte Esterase Urine Trace (Negative); Nitrite Urine Negative (Negative); Protein Urine Trace (Negative); Specific Gravity Urine 1.025 (1.000-1.030); Urobilinogen Urine 0.2 (0.2-1.0); pH Urine 6.5 (5.0-8.5)
[2025-02-28 15:30] LABS: Bacteria Urine Many; Squamous Epithelial Cell Urine Moderate (None-Few)
[2025-02-28 16:32] VITALS: BP 112/72; PULSE 89; RESP 16; O2SAT 100
== END 2025-02-28 16:37 | disposition home or self-care (01) ==
PROVIDERS: Emergency Provider Emergency Medicine; PCP Family Medicine
DX: N39.0 Urinary tract infection, site not specified (principal); R07.81 Pleurodynia; M54.9 Dorsalgia, unspecified; W19.XXXA Unspecified fall, initial encounter
CPT/HCPCS: 36415; 71046; 76705; 80053; 81001; 83690; 84484; 85025; 85379; 87086; 93005; 99283; 99284; 99285; A9270; J2405; J7030

== ENCOUNTER 2025-03-20 10:03 | Outpatient (CLI) | payer BC, SELFPAY ==
--- NOTE | 2025-03-20 10:00 | CRLHL7_ITS ---
For Patients: As a result of the Cures Act, medical imaging exams and procedure reports are released immediately into your electronic medical record. You may view this report before your referring provider. If you have questions, please contact your health care provider. OB ULTRASOUND FOLLOW-UP/LIMITED, CLINICAL HISTORY: Marginal CI. COMPARISON: 01/26/2025, 01/23/2025, 10/31/2024. TECHNIQUE: Real time jacinto scale imaging of the fetus was performed. Transabdominal imaging performed. FINDINGS: LMP: 08/27/2024. LISA by US: 06/12/2025. GA: 28 weeks 0 days. Gestation: Single. Cervix: Not visualized. Position: Vertex. Amniotic fluid: 3.8 cm SDP. Placenta: Technique: TA. Placenta position: Posterior. Dopplers: heart rate: 144 bpm. BIOMETRY: BPD: 7.5 cm, 30 weeks 0 days. 92% HC: 27.4 cm, 29 weeks 6 days. 78% AC: 24.7 cm, 28 weeks 6 days. 70% FL: 53 cm, 28 weeks 1 day. 41% FL/AC Ratio: 21.6% HC/AC Ratio: 1.1. EFW: 1294 g, 2 lb 14 oz. age by this US: 29 weeks 2 days. LISA by this US: 29 weeks 2 days. Percentile by LISA: 70.7% IMPRESSION: 1. Sonographic gestational age 29 weeks 2 days and sonographic due date 06/03/2025. Sonographic age 9 days ahead of the clinical age. 2. Estimated weight 71st percentile. Abdominal circumference 70th percentile. Wilder Church M.D. Diagnostic Radiologist [email or web address] Transcribed: 1:19 pm DW/Dictated by: Wilder Church MD @ 03/20/2025 10:57:00 AM (Electronically Signed)
--- OUTSIDE RECORDS SUMMARY | 2025-03-21 00:36 | XMS_ITS | Clinical Summary ---
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 Name Role Phone Gregory Cash MD Primary Care Provider Source Comments You are receiving this document as you are listed as the primary care provider,follow-up provider, or the patient has been referred to you for consultation.This is in compliance with the Medicare andGrant Hospital[employer] EHR Incentive Program,which states Providers who [...] on file Legal Sex Female 3:22 AM IT ARCHITECT Gender Identity Not on file Sexual Orientation Not on file Last Filed Vital Signs Vital Sign Reading Time Taken Comments Blood Pressure 129/77 10/08/2022 4:51 AM IT ARCHITECT Pulse 97 10/08/2022 4:51 AM IT ARCHITECT Temperature 36.8 C (98.2 F) 10/08/2022 3:29 AM IT ARCHITECT Respiratory Rate 16 10/08/2022 4:51 AM IT ARCHITECT Oxygen Saturation 99% 10/08/2022 4:51 AM IT ARCHITECT Inhaled Oxygen Concentration - - Weight 54.4 kg (120 lb) 10/08/2022 3:29 AM IT ARCHITECT Height 167.6 cm (5' 6) 10/08/2022 3:29 AM IT ARCHITECT Body Mass Index 19.37 10/08/2022 3:29 AM IT ARCHITECT Plan of Treatment Health Maintenance Due Date [...] patient's age to complete this topic Insurance [facility] Care Teams Oil Plant Operator Relationship Specialty Start Date End Date Gregory Cash MD [address] [place] [address] PCP - General Family Practice 01/26/24
--- OUTSIDE RECORDS SUMMARY | 2025-03-21 00:36 | XMS_ITS | Clinical Summary ---
Author Organization [facility] Address [address] [place] [id number] Care Team Providers Care Shell Core And Molding Supervisor Name Role Phone Gregory Cash MD Primary [...] Encounters Date Type Department Care Team Description 02/28/2025 Orders Only [facility] Scanner 1 scan: (1-Ord) STEVEN, XR CHEST 2V, 02/28/2025 02/28/2025 Orders Only [facility] Scanner 1 scan: (1-Ord) STEVEN, US GALLBLADDER, 02/28/2025 01/26/2025 Orders Only [facility] Scanner 1 scan: (1-Ord) [place], LIMITED, 01/26/2025 from Last 3 Months Immunizations Immunization [...] on file Legal Sex Female 7:41 AM INHALATION THERAPY AIDE Gender Identity Not on file Sexual Orientation Not on file 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 file Not on file Not on file Obstetrics History Last Filed Vital Signs Vital Sign Reading Time Taken Comments Blood Pressure 137/72 10/02/2024 5:20 AM INHALATION THERAPY AIDE Pulse 85 10/02/2024 5:20 AM INHALATION THERAPY AIDE Temperature 36.7 C (98.1 F) 10/02/2024 4:54 AM INHALATION THERAPY AIDE Respiratory Rate 16 10/02/2024 4:54 AM INHALATION THERAPY AIDE Oxygen Saturation 97% 10/02/2024 5:20 AM INHALATION THERAPY AIDE Inhaled Oxygen Concentration - - Weight 57.8 kg (127 lb 8 oz) 10/02/2024 4:54 AM INHALATION THERAPY AIDE Height 165.1 cm (5' 5) 10/02/2024 4:54 AM INHALATION THERAPY AIDE Body Mass Index 21.22 10/02/2024 4:54 AM INHALATION THERAPY AIDE Plan of Treatment Health Maintenance Due Date [...] Procedure Name Priority Date/Time Associated Diagnosis Comments SCAN-RADIOLOGY REPORT 02/28/2025 12:00 AM CDT SCAN-ULTRASOUND REPORT 02/28/2025 12:00 AM CDT SCAN-ULTRASOUND REPORT 01/26/2025 12:00 AM CDT SECURITY SOFTWARE ENGINEER THIN PREP PAP SCREEN IMAGED Routine 01/12/2024 8:43 AM CDT CHLAMYDIA TRACH PROBE Routine 12/09/2016 11:54 AM CDT Screening for chlamydial disease from Last 3 Months or Most Recently Relevant to Health Maintenance Results * SCAN-RADIOLOGY REPORT (02/28/2025 12:00 AM CDT) Anatomical Region Laterality Modality Other us Scanner OTHER Final Result * SCAN-ULTRASOUND REPORT (02/28/2025 12:00 AM CDT) Only the most recent of2 resultswithin the time period is included. Anatomical Region Laterality Modality Other us Scanner OTHER Final Result * (ABNORMAL) SECURITY SOFTWARE ENGINEER THIN PREP PAP SCREEN IMAGED (01/12/2024 8:43 AM CDT) Case Report Gynecologic Cytology Report Case: [id number] Authorizing Provider: Robina Lombardi PA-C Collected: 01/12/2024 0843 Ordering Location: [facility] Received: 01/13/2024 0837 First Screen: Maite Castellanos Pathologist: Jeremy Farnsworth MD Specimen: SECURITY SOFTWARE ENGINEER ThinPrep Vial Screening, Cervical 01/25/2024 4:21 PM CDT [facility] INTERPRETATION/ RESULT LOW GRADE SQUAMOUS INTRAEPITHELIAL LESION (LSIL)(A) (none) 01/25/2024 4:21 PM CDT [facility] at 1621 CDT SPECIMEN ADEQUACY Satisfactory for evaluation No endocervical component seen 01/25/2024 4:21 PM CDT [facility] HPV REQUEST HPV not requested 2023 4:21 PM CDT [facility] Date of LMP 01/25/2024 4:21 PM CDT [facility] Comment:unk Last Pap Date 01/21/2023 01/25/2024 4:21 PM CDT [facility] Last Pap Result LSIL 4:21 PM CDT [facility] Abnormal Pap or [place] Bx in last 5 years No 01/25/2024 4:21 PM CDT [facility] Menstrual Status Regular Periods 01/25/2024 4:21 PM CDT [facility] [place] Bx Done Today No 01/25/2024 4:21 PM CDT [facility] Additional Information 01/25/2024 4:21 PM CDT [facility] Comment: Interpreted at [facility] - [address], [place] [address] Automated Review Successful 01/25/2024 4:21 PM T [facility] Comment:Specimen processed s uccessfully by automated clock and watch hands painter device, ThinPrep Imaging System, [employer] Note The pap test is a [...] and malignant lesions. 01/25/2024 4:21 PM T [facility] Other (Cervical) 01/12/2024 8:43 AM CDT 01/13/2024 8:37 AM CDT december L Harjit MORA PATHOLOGY/CYTOLOGY Final R esult [facility] [address] [place] [address], * CHLAMYDIA TRACH PROBE (12/09/2016 11:54 AM CDT) CHLAMYDIA PROBE Negative 12/10/2016 12:52 PM CDT [facility] Other URINE SPECIMEN / Unknown Non-Blood / Unknown 12/09/2016 11:54 AM CDT 12/09/2016 11:54 AM CDT Skye URRUTIA MICROBIOLOGY Final Resu lt [facility] [address] [place] [address], [place] from Last 3 Months or Most Recently Relevant to Health Maintenance Insurance [facility] [employer] Care Teams Shell Core And Molding Supervisor Relationship Specialty Start Date End Date Gregory Cash MD PCP - General 07/15/09
== END 2025-03-20 10:04 | disposition home or self-care (01) ==
LOC: US 10:03
PROVIDERS: PCP Family Medicine; Visit Provider Registered Nurse
DX: O43.193 Other malformation of placenta, third trimester (principal); O99.283 Endocrine, nutritional and metabolic diseases complicating pregnancy, third trimester; E03.8 Other specified hypothyroidism; Z3A.28 28 weeks gestation of pregnancy
CPT/HCPCS: 76816; 84443; 86592; 87086

== ENCOUNTER 2025-04-18 07:56 | Outpatient (CLI) | payer BC, SELFPAY ==
--- NOTE | 2025-04-18 08:15 | CRLHL7_ITS ---
For Patients: As a result of the Century Cures Act, medical imaging exams and procedure reports are released immediately into your electronic medical record. You may view this report before your referring provider. If you have questions, please contact your health care provider. OB ULTRASOUND FOLLOW-UP/LIMITED, 04/18/2025 CLINICAL HISTORY: Marginal cord insertion, growth. COMPARISON: 03/20/2025, 01/26/2025, 01/23/2025. TECHNIQUE: Real time jacinto scale imaging of the fetus was performed. Transabdominal imaging performed. FINDINGS: ILSA by US: 06/12/2025. GA: 32 weeks 1 day. Cervix: Not visualized. Positioning: Vertex. Amniotic Fluid: 5 cm SDP. Placenta: Technique: TA. Placenta Position: Posterior. Dopplers: Heart Rate: 139 bpm. Biometry: BDP: 8.4 cm, 33 weeks 5 days. 83% HC: 29.9 cm, 33 weeks 1 day. 37% AC: 29 cm, 33 weeks 0 days. 74% FL: 6.4 cm, 33 weeks 1 day. 64% FL/AC Ratio: 22.1% HC/AC Ratio: 1.03. EFW: 2119 grams, 4 lb 11 oz. age by this US: 33 weeks 2 days. LISA by this US: 06/04/2025. Percentile by LISA: 71% IMPRESSION: Single live intrauterine gestation at 33 weeks 2 days. LISA of 06/04/2025. Estimated weight 2199 grams which lies at the 71st percentile. Diana Montanez M.D. Diagnostic/Breast Radiologist [email or web address] Transcribed: 2:55 pm DW/Dictated by: Diana Montanez MD @ 04/22/2025 1:52:00 PM (Electronically Signed)
== END 2025-04-18 07:57 | disposition home or self-care (01) ==
LOC: US 07:57
PROVIDERS: PCP Family Medicine; Visit Provider Registered Nurse
DX: O43.193 Other malformation of placenta, third trimester (principal); Z3A.32 32 weeks gestation of pregnancy
CPT/HCPCS: 76816

== ENCOUNTER 2025-05-02 12:48 | Outpatient (CLI) | payer BC, SELFPAY | END 2025-05-02 12:49 | disposition home or self-care (01) | LOC: NFLDREF 05-08 12:27 | PROVIDERS: PCP Family Medicine; Referring Provider Family Medicine; Visit Provider Obstetrics & Gynecology | DX: O99.013 Anemia complicating pregnancy, third trimester (principal); Z3A.34 34 weeks gestation of pregnancy | CPT/HCPCS: 82728 ==

== ENCOUNTER 2025-05-08 12:52 | Outpatient (CLI) | payer BC, SELFPAY ==
[2025-05-08 13:11] VITALS: TEMP 36.9
[2025-05-08 13:13] VITALS: BP 125/77; PULSE 87; PULSE 89; O2SAT 97
[2025-05-08 13:18] LABS: Appearance Urine Clear (Clear)
[2025-05-08 13:28] LABS: Hematocrit* 30.8 % (33.0-51.0); Hemoglobin* 10.0 gm/dL (12.0-16.0); Immature Granulocytes Abs Auto 0.09 K/uL (0.00-0.30); Immature Granulocytes Pct Auto 0.9 %; Mean Corpuscular HGB Conc 33 gm/dL (32-36); Mean Corpuscular Hemoglobin 28 pg (26-34); Mean Corpuscular Volume 85 fL (80-100); RDW Coefficient of Variation % 13.1 % (11.5-15.5); Red Blood Count* 3.63 m/uL (4.00-5.20); White Blood Count* 9.51 K/uL (4.50-11.00)
[2025-05-08 13:34] LABS: Protein Creatinine Ratio Urine 0.05 (0-0.19)
[2025-05-08 13:34] LABS: Lymphocytes Absolute Auto 1.20 K/uL (0.90-2.90); Slide Review Reflex No
[2025-05-08 13:39] LABS: Albumin* 3.4 g/dL (3.3-5.0); Chloride* 106 mmol/L (96-114); Potassium* 3.9 mmol/L (3.6-5.1); Sodium* 133 mmol/L (135-149)
[2025-05-08 13:42] LABS: Alanine Aminotransferase* 15 U/L (4-35); Alkaline Phosphatase* 131 U/L (40-150); Anion Gap 7 mEq/L (7-15); Aspartate Amino Transferase* 23 U/L (12-35); Bilirubin Total* 0.7 mg/dL (0.1-1.5); Blood Urea Nitrogen* 8 mg/dL (5-24); Calcium* 8.9 mg/dL (8.4-10.6); Carbon Dioxide* 20 mmol/L (20-32); Creatinine* 0.5 mg/dL (0.5-1.5); Estimated Glomerular Filt Rate 135 ml/min; Glucose* 97 mg/dL (60-115); Total Protein* 6.4 g/dL (6.0-8.3)
[2025-05-08] MEDS: PROCHLORPERAZINE 10 MG TABLET PO (13:59)
--- NOTE | 2025-05-08 14:25 | CRLHL7_ITS ---
For Patients: As a result of the Century Cures Act, medical imaging exams and procedure reports are released immediately into your electronic medical record. You may view this report before your referring provider. If you have questions, please contact your health care provider. INDICATION: 36 weeks , right mid abdominal pain, nausea vomiting, fever TECHNIQUE: MRI of the abdomen and pelvis was performed with T1 and T2 weighted imaging. No intravenous contrast was administered. COMPARISON: Ob ultrasound 04/18/2025 and gallbladder ultrasound 02/28/2025 FINDINGS: Normal appendix without wall thickening, periappendiceal inflammation, or abscess. The bilateral ovaries are not well seen. Normal renal parenchyma without evidence of hydronephrosis The infrahepatic IVC is severely compressed. Otherwise, the visualized vasculature demonstrate patent flow voids. No evidence of femoral head osteonecrosis. Limited exam of the remaining abdomen and pelvis demonstrates no abnormality within the liver, biliary tree, pancreas, spleen, kidneys, or bowel. Gravid uterus with closed cervix. No evidence of myometrial invasion. Lobulated T2 hyperintense structure adjacent to the right posterior uterus measuring 2.5 x 11.7 cm (12/18). position: Cephalic Placental position: Posterior Amniotic fluid level: Normal No abnormality on limited evaluation of anatomy IMPRESSION: 1. Unremarkable appendix. 2. No hydronephrosis. The kidneys have a normal noncontrast appearance. 3. The ovaries are not well seen bilaterally, however there is no definite evidence of torsion 4. Lobulated cystic structure adjacent to the right lateral uterus measuring up to 11.7 cm, incompletely characterized in the absence of intravenous contrast, however may represent dilated parametrial or gonadal vessels. It is unclear if this is the source of the patient`s pain. Consider further evaluation with pelvic ultrasound 5. Gravid uterus with posterior placenta and normal amniotic fluid. Fetus in cephalic position without appreciable abnormality on this nondedicated exam. 6. The infrahepatic IVC is severely compressed, likely related to gravid state and patient positioning Dictated by Carolyn Calderon MD @ 05/08/2025 3:57:46 PM (Electronically Signed)
[2025-05-08] MEDS: LACTATED RINGERS 1000 ML 1,000 ML 500 ML IV (14:32)
--- NOTE | 2025-05-08 14:35 | PM.OBLDTN ---
OB - Triage/Final Diagnosis Visit Information Time Seen by Provider: 14:35 Narrative: The patient is a 24 year old 2 para 0 at 35 weeks gestation by US, who presents for evaluation of nausea/vomiting and fever. is complicated by marginal cord insertion, asymptomatic bacteriuria then UTI in , nausea/vomiting, GERD and migraine headaches managed with Fioricet. Patient called in to triage after having elevated temps at home. On arrival, she notes she has been waking up due to night sweats where she will take her temperature and has ranged from 99 to 101.6 ? F at home. Symptoms have been managed with Tylenol and baths, but she has been feeling overall somewhat unwell. She has baseline GERD, but notes she has had an increased incidence of nausea and vomiting for the last several days. She estimates that she has vomited 4 times in the last 24 hours. She notes she is able to eat successfully, but will have vomiting a few hours after. Notes she is able to tolerate intake of liquids, crackers, Jell-O. Patient has baseline headaches, managed with Tylenol and Fioricet. She notes that her headache today feels very similar to her baseline migraines, but her medicine seem less effective than typical. She does not initially report any specific abdominal pain. On questioning, she notes that she has some tailbone pain that does radiate to her bilateral sides and had some mid to upper right abdominal tenderness. She denies any regular/painful contractions, does acknowledge that she is aware of the contractions noted on toco however. No vaginal bleeding or leaking of fluid. Endorses active movement. Denies any abnormal vaginal discharge, malodor, vulvovaginal itching or burning. She denies any bowel changes (diarrhea/constipation), dysuria. She has baseline urgency/frequency in the third trimester - unchanged recently. Notes sight nasal congestion and sore throat, no cough, chest pain, dyspnea. Throughout period of monitoring and diagnostic testing, patient did note that she is having some increased discomfort with contractions. She rates these as 5/10 in severity, is conversant and does not grimace during contractions throughout our conversations. Cervix was checked and found to be 1.5/50/-3 by bedside RN. She noted vaginal pain with cervical exam and some lumbar back pain since lying on MRI table. Lab evaluation including a CBC, CMP, UA/UC are entirely within normal limits. Viral swab negative. Pelvic MRI was negative for appendicitis, incidental finding of a hyperintense structure adjacent to the right posterior uterus measuring 2.5x11.7cm. This was described to be potentially residential sales representative of dilated parametrial or gonadal vessels, but this was uncertain without contrast. I did call to speak with reading radiologist, who was off shift. As such I did speak with Dr. Turner at [facility] who only reviewed the right adnexal/parametrial finding. He felt this finding was highly consistent with dilated parametrial vessels. He noted he did not see evidence of thrombus, but noted this could be missed on MRI. Discussed that pelvic US could be utilized to further evaluate this lesion exclude thrombus. As such, we did proceed to a pelvic ultrasound which also noted prominent parametrial and organ at a vessels within the right adnexa with no evidence of thrombus. Throughout evaluation, patient noted that her nausea was improved. She did not have any episodes of emesis in triage. She noted her contractions continued be about every 3-4 minutes, rated as 5 to 6/10 in severity. Repeat cervical exam was performed by myself, where patient had some discomfort at the vaginal introitus. Cervix was checked and noted to be closed, external os was dilated to about 1cm. She has remained afebrile and hemodynamically stable throughout assessment. NST entirely reactive across extended monitoring. All evaluation as been reassuring. As such, explained i am most suspicious for viral gastroenteritis as etiology behind her fever and vomiting. Discussed strict return precautions for new or worsening symptoms. Return precautions for signs/symptoms labor, bleeding, ROM and decreased movement reinforced as well. All questions answered. Strict return precautions reinforced. Evaluation Laboratory results: Laboratory Tests 05/08/25 05/08/25 Range/Units Unknown 13:09 WBC 9.51 (4.50-11.00) K/uL RBC 3.63 L (4.00-5.20) m/uL Hgb 10.0 L (12.0-16.0) gm/dL Hct 30.8 L (33.0-51.0) % MCV 85 (80-100) fL MCH 28 (26-34) pg MCHC 33 (32-36) gm/dL RDW Coeff of Leonid 13.1 (11.5-15.5) % Plt Count 221 (140-440) K/uL Neut % (Auto) 77.7 H (42.0-72.0) % Lymph % (Auto) 12.1 L (20-44) % Dent % (Auto) 8.3 (0.0-11.0) % Eos % (Auto) 0.9 (0.0-7.0) % Baso % (Auto) 0.1 (0.0-3.0) % Neut # (Auto) 7.40 H (1.7-7.0) K/uL Lymph # (Auto) 1.20 (0.90-2.90) K/uL Dent # (Auto) 0.80 (0.00-0.90) K/UL Eos # (Auto) 0.09 (0.00-0.50) K/uL Baso # (Auto) 0.01 (0.00-0.30) K/uL Abs Immat Gran (auto) 0.09 (0.00-0.30) K/uL Imm/Tot Granulo (auto) 0.9 % Sodium 133 L (135-149) mmol/L Potassium 3.9 (3.6-5.1) mmol/L Chloride 106 (96-114) mmol/L Carbon Dioxide 20 (20-32) mmol/L Anion Gap 7 (7-15) mEq/L BUN 8 (5-24) mg/dL Creatinine 0.5 (0.5-1.5) mg/dL Estimated GFR 135 ml/min Glucose 97 (60-115) mg/dL Calcium 8.9 (8.4-10.6) mg/dL Total Bilirubin 0.7 (0.1-1.5) mg/dL AST 23 (12-35) U/L ALT 15 (4-35) U/L Alkaline Phosphatase 131 (40-150) U/L Total Protein 6.4 (6.0-8.3) g/dL Albumin 3.4 (3.3-5.0) g/dL Urine Color Yellow (Yellow) Urine Appearance Clear (Clear) Urine pH 6.5 (5.0-8.5) Ur Specific [place] 1.020 (1.000-1.030) Urine Protein Negative (Negative) Urine Glucose (UA) Negative (Negative) Urine Ketones Negative (Negative) Urine Blood Negative (Negative) Urine Nitrite Negative (Negative) Urine Bilirubin Negative (Negative) Urine Urobilinogen 0.2 (0.2-1.0) Ur Leukocyte Esterase Negative (Negative) Urine Creatinine 97.5 mg/dL Protein/Creatinin Ratio 0.05 (0-0.19) Urine Total Protein < 5 mg/dL Vital signs: Vital Signs - 24 hr 05/08/25 13:11 05/08/25 13:13 Temperature 98.5 F Pulse Rate 87 Blood Pressure 125/77 Pulse Oximetry 97 Comments: Vital signs reviewed and are entirely within normal limits. General: Alert and oriented, in no acute distress. Well-appearing. Psych: Appropriate mood and affect Abdomen: Gravid. Slight tenderness to palpation across the right lateral abdomen, from upper to lower quadrants. She does describe some point tenderness directly lateral right to the umbilicus. No rebound or guarding. No apparent grimace on palpation. Back: Patient notes pain with palpation of the lumbar to sacral spine, tenderness of the bilateral paraspinal muscles across her low back. No CVA tenderness. Extremities: No significant lower extremity edema. No calf erythema or tenderness. FHR: Reactive NST throughout extended monitoring period. Baseline 130bpm, moderate variability, several qualifying 15 x 15 accelerations seen. No decelerations. [place]: Periods of uterine contractions as frequently as Q 2-5 minutes
[2025-05-08 15:39] LABS: PCR FLU A Negative PCR FLU A (Negative); PCR FLU B Negative PCR FLU B (Negative); PCR RSV Negative PCR RSV (Negative); SARS PCR* Negative SARS-CoV-2 (Negative)
--- NOTE | 2025-05-08 16:13 | CRLHL7_ITS ---
For Patients: As a result of the Century Cures Act, medical imaging exams and procedure reports are released immediately into your electronic medical record. You may view this report before your referring provider. If you have questions, please contact your health care provider. INDICATION: abnormal MRI evaluate right adnexa, fevers, N/V, right mid abdominal pain. TECHNIQUE: Ultrasound OB pelvis transabdominal. Real-time jacinto-scale imaging of the fetus was performed without stress testing. COMPARISON: Abdominal MRI from the same day. FINDINGS: Sonographic imaging demonstrates a single living intrauterine gestation. Fetus demonstrates a regular cardiac rate of 142 beats per minute. Fetus has a cephalic orientation. Posterior placenta. Normal amniotic fluid volume with SDP of 7.3 cm. The ovaries are normal. Prominent parametrial and/or gonadal vessels gonadal vessels within the right adnexa. No evidence for ovarian torsion. IMPRESSION: Single viable intrauterine within the right adnexa. Normal ovaries. Prominent parametrial and/or gonadal vessels within the right adnexa. Dictated by Fredy Beckford MD @ 05/08/2025 6:08:44 PM (Electronically Signed)
[2025-05-08 18:29] VITALS: TEMP 36.8
--- NOTE | 2025-05-08 19:05 | PC.OBNST ---
NST Note NST Note Start: 05/08/25 12:56 Freq: ONCE Status: Active Protocol: Document 05/08/25 19:02 [facility] (Rec: 05/08/25 19:03 [facility] [id number]) NST Note 2 Para (# of births) 0 EDC 06/12/25 Gestational Age In 35 Weeks & 0 Days Weeks & Days Patient Presented Nausea and vomiting,Headache,Other with Complaint(s) of Other Complaints fever x3 days Reactive Yes Appropriate for Yes Gestational Age MIKE Parks Date 05/08/25 Reactive Yes Appropriate for Yes Gestational Age MIKE Singletary Date 05/08/25 OB NST charge Yes Complete NST Note Yes via Write Note The provider's electronic signature indicates the NST is reactive/appropriate for gestational age. *Note to provider: If an addendum is required, open the patient's chart and click on the note under the Nurse/Allied Health tab.
== END 2025-05-08 19:04 | disposition home or self-care (01) ==
LOC: OB OUT 12:52 → OB 12:53
PROVIDERS: PCP Family Medicine; Visit Provider Obstetrics & Gynecology
DX: O26.893 Other specified pregnancy related conditions, third trimester (principal); R11.2 Nausea with vomiting, unspecified; R51.9 Headache, unspecified; Z3A.35 35 weeks gestation of pregnancy
CPT/HCPCS: 36415; 59025; 74181; 76815; 80053; 81003; 82570; 84156; 85025; 87631; G0463; A9270; J7120

== ENCOUNTER 2025-05-14 07:59 | Inpatient (IN) | payer BC, SELFPAY ==
[2025-05-14] VITALS (61 sets, daily range): BP systolic 96–159; BP diastolic 55–100; PULSE 60–104; RESP 16–22; TEMP 36.8–37.4; O2SAT 96–100; BMI 31.0
[2025-05-14 02:17] LABS: Appearance Urine Clear (Clear)
[2025-05-14] MEDS: PROMETHAZINE 25 MG TABLET PO (02:20)
[2025-05-14 02:26] LABS: Hematocrit 30.6 % (33.0-51.0); Hemoglobin* 10.0 gm/dL (12.0-16.0); Immature Granulocytes Abs Auto 0.12 K/uL (0.00-0.30); Immature Granulocytes Pct Auto 1.2 %; Mean Corpuscular HGB Conc 33 gm/dL (32-36); Mean Corpuscular Hemoglobin 28 pg (26-34); Mean Corpuscular Volume 84 fL (80-100); RDW Coefficient of Variation % 13.3 % (11.5-15.5); Red Blood Count 3.63 m/uL (4.00-5.20); White Blood Count* 9.77 K/uL (4.50-11.00)
[2025-05-14 02:33] LABS: Protein Creatinine Ratio Urine 0.14 (0-0.19)
[2025-05-14 02:34] LABS: Lymphocytes Absolute Auto 1.40 K/uL (0.90-2.90)
[2025-05-14 02:35] LABS: Slide Review Reflex No
[2025-05-14 02:40] LABS: Chloride* 105 mmol/L (96-114)
[2025-05-14 02:41] LABS: Albumin* 3.5 g/dL (3.3-5.0); Potassium* 3.8 mmol/L (3.6-5.1); Sodium* 134 mmol/L (135-149)
[2025-05-14 02:43] LABS: Blood Urea Nitrogen* 10 mg/dL (5-24); Creatinine* 0.5 mg/dL (0.5-1.5); Est. Creatinine Clearance* 163.82; Estimated Glomerular Filt Rate 135 ml/min
[2025-05-14 02:44] LABS: Alanine Aminotransferase* 18 U/L (4-35); Alkaline Phosphatase* 147 U/L (40-150); Anion Gap 6 mEq/L (7-15); Aspartate Amino Transferase* 26 U/L (12-35); Bilirubin Total* 0.8 mg/dL (0.1-1.5); Calcium* 9.5 mg/dL (8.4-10.6); Carbon Dioxide* 23 mmol/L (20-32); Glucose* 92 mg/dL (60-115); Total Protein* 6.6 g/dL (6.0-8.3)
[2025-05-14] MEDS: ACETAMINOPHEN 500 MG TABLET 1000 MG PO ×3 (04:20→17:20)
[2025-05-14] MEDS: ONDANSETRON ODT 4 MG TAB PO (04:22)
--- NOTE | 2025-05-14 06:32 | PM.OBHPLI ---
OB - H&P: HPI Labor/Induction History of Present Illness Time Seen by Provider: 06:33 Date Seen: 05/14/25 Chief Complaint: Unrelenting headache, BP elevation Chief complaint: Maternity Indications for induction: pre-eclampsia Narrative: Heaven is a 24yo at 35w6d GA admitted for preeclampsia with severe features (PUBLIC HEALTH EPIDEMIOLOGIST irritability). is complicated by marginal cord insertion, UTI in , nausea/vomiting of , headaches. Patient presented to triage overnight, getting unrelenting headache. She notes her headache has escalated over the last 24 hours, despite use of Tylenol, Fioricet and Compazine. She notes her headache is throbbing and throughout her whole head, rated as a 9/10 in severity. In triage, she received a second dose of tylenol, phenergen and sumatriptan with no improvement of pain. She endorses associated vision changes, described as black spots, flashes and swirls. She has slight right upper quadrant discomfort. She has had associated emesis x1 while in triage, notes this is not distinctly different than her usual migraine pattern in terms of emesis. That said, the severity of pain, persistence and visual changes are atypical. Patient has noted significantly increased swelling as well, greatest in her legs but she also notes her hands and face seem to swell. She feels she has had a significant weight gain in the last few days. Patient has noted some occasional contractions, seem to be getting more intense through time. Denies vaginal bleeding or leaking of fluid. Endorses active movement. Patient was seen in triage little over week ago for fevers at home and nausea/vomiting, evaluation at that time was reassuring. We did complete an abdominal/pelvic MRI, where the only significant finding was some suspected vascular congestion from the gravid uterus on the IVC/parametrial and gonadal vessels. Pelvic ultrasound was performed as well, no apparent clot. Patient notes her for her fevers have improved, but they do seem to come and go still slightly. She denies any nasal congestion or upper respiratory infection, has noted a slight cough in the last few days. No other bowel or bladder changes. Denies chest pain or dyspnea. No unilateral lower extremity edema, calf pain/erythema. Patient has some chronic neck pain, no nuchal rigidity. Specific Issues/Plans G 2 P 0010 It's a BOY! -- Henry Parkinson Not involved with FOB (Augusto) - still processing the # Marginal cord insertion-1.8cm from placental edge Growth US at 28 and 32 weeks: Orders placed See below for results # Asymptomatic bacteriuria at first OB. Treated w/ Keflex. UTI in (question persistent asymptomatic bacteriuria) 02/28/25: Pansensitive E coli. Treated with cephalexin Test of cure 03/20: <10,000 K mixed gram positive camila # Nausea and vomiting in . Zofran working better than Phenergan. Omeprazole 03/07/25 # TSH checked at first OB d/t family h/o thyroid disease in patient's mother. TSH:3.28. = subclinical hypothyroidism. Started on 25 mcg at 12 weeks. Recheck 12/26/24: 1.62 Repeat TSH 03/20: 1.930 # Headaches managed with Fioricet [Plan for testing] H&P: [] Imagin03/20/25: 28 weeks. Cephalic, SDP 3.8 cm, posterior placenta, BPD 92%, HC 78%, AC 70%, FL 41%, EFW 70% 04/18: 32 1/7 weeks. Cephalic, SDP 5, EFW 71%, all growth parameters within normal ranges. Vaccinations: Flu: Declines Covid: Completed, up-to-date. Declines today. Tdap: 04/04 RSV: [] 32 week mental health: [] H/o abnormal paps. 12/2022 LSIL. 12/2023 LSIL. 10/2024: [] Meds Home Medications and Allergies Home Medications ?Medication ?Instructions ?Recorded ?Confirmed ?Type docosahexaenoic acid 200 mg 200 mg PO DAILY 11/14/24 05/14/25 History capsule ( DHA) cetirizine 5 mg tablet 5 mg PO QDAY PRN 11/28/24 05/14/25 History levothyroxine 25 mcg tablet 25 mcg PO QDAY #90 tabs 01/23/25 05/14/25 Rx omeprazole 20 mg capsule,delayed 20 mg PO QDAY #90 caps 03/07/25 05/14/25 Rx release hevzgzyoid-ooeszjlzicgpw-mvfkawxd 1 tab PO Q6H PRN pain #10 tabs 04/04/25 05/14/25 Rx 50 mg-325 mg-40 mg tablet ferrous sulfate 325 mg (65 mg 325 mg PO Q OTHER DAY #60 tabs 05/02/25 05/14/25 Rx iron) tablet,delayed release ondansetron 4 mg disintegrating 4 mg PO Q6-8H PRN nausea and 05/08/25 05/14/25 Rx tablet vomiting #30 tabs prochlorperazine maleate 10 mg 10 mg PO TID PRN vomiting #15 tabs 05/08/25 05/14/25 Rx tablet Allergies Allergy/AdvReac Type Severity Reaction Status Date / Time No Known Drug Allergies Allergy Verified 05/08/25 13:24 OB - H&P: Exam Physical Exam: Vital signs: Temp Pulse BP Pulse Ox 99.3 F 63 150/88 H 99 05/14/25 05:40 05/14/25 05:40 05/14/25 05:40 05/14/25 04:21 Narrative: General: Alert and oriented, in no acute distress. Appropriate to conversation. Lights dimmed due to headache, but patient is well-appearing. Psych: Appropriate mood affect Neuro: No focal neurologic deficits. Full ROM of neck, no apparent nuchal rigidity when she flexes neck forward to reposition in bed. Abdomen: Gravid. Slight tenderness in the right upper quadrant, otherwise nontender. Confirm cephalic by bedside ultrasound. EFW by ultrasound on 04/18 was 2119 g at the 71st percentile, AC 74th percentile. heart rate: Reactive. Baseline 150 beats per minute, moderate variability, 15 x 15 accelerations seen, no apparent decelerations. Marana: Darinel Q2-8 minutes Cervix: Closed/20% and -3 per bedside RN Extremities: 2+ pitting edema bilaterally to level of the knees. No calf erythema or tenderness. OB - Results Labs Labs: Short CBC 05/14/25 Range/Units 02:20 WBC 9.77 (4.50-11.00) K/uL Hgb 10.0 L (12.0-16.0) gm/dL Hct 30.6 L (33.0-51.0) % Plt Count 219 (140-440) K/uL BMP 05/14/25 02:20 Sodium 134 L Potassium 3.8 Chloride 105 Carbon Dioxide 23 BUN 10 Creatinine 0.5 Glucose 92 Calcium 9.5 Liver Function 05/14/25 Range/Units 02:20 Total Bilirubin 0.8 (0.1-1.5) mg/dL AST 26 (12-35) U/L ALT 18 (4-35) U/L Alkaline Phosphatase 147 (40-150) U/L Albumin 3.5 (3.3-5.0) g/dL Urine 05/14/25 Range/Units 02:00 Urine Color Yellow (Yellow) Urine Appearance Clear (Clear) Urine pH 7.0 (5.0-8.5) Ur Specific Sharon 1.025 (1.000-1.030) Urine Protein 1+ A (Negative) Urine Glucose (UA) Negative (Negative) OB - Problem Based A/P Additional Plan (1) Preeclampsia, severe: Status: Acute (2) Anemia affecting : Status: Acute (3) Marginal insertion of umbilical cord: Status: Acute (4) Subclinical hypothyroidism: Status: Acute (5) Nausea and vomiting: Status: Acute (6) Migraine with aura: Status: Acute Plan Heaven is a 24yo at 35w6d [place] admitted for preeclampsia with severe features (PUBLIC HEALTH EPIDEMIOLOGIST irritability). is complicated by marginal cord insertion, UTI in , nausea/vomiting of , headaches. Heaven has chronic headaches with migraine morphology, where she noted significant increase in the last 24 hours or so. She utilized her typical regimen of Tylenol and Fioricet without improvement. Took Compazine at home, as was prescribed a previous triage visit (and did improve headache previously) with no improvement in symptoms. Patient presented to care due to unrelenting headache and vision changes. On presentation, she met criteria for a new hypertensive disorder of . Preeclampsia labs were performed - Notable for hemoglobin of 10.0, platelets 219, creatinine 0.5, AST 26, ALT 18, urine protein creatinine ratio of 0.14. Patient was monitored in triage for 4 hours, during which her blood pressures varied from the normal to high mild range. She has not had any severe range pressures. We proceeded to do further trial of headache treatment, including Tylenol, Phenergan and sumatriptan. Despite these efforts, her headache persists at a 9/10 in severity. She continues to have vision changes, the notes these are somewhat decreased - described as seeing black spots, flashes and swirls - as well as RUQ pain. As such, I do feel patient meets criteria for preeclampsia with severe features given PUBLIC HEALTH EPIDEMIOLOGIST irritability represented by persistent headache/vision changes despite Tylenol x2, Fioricet, Compazine, Phenergan, and sumatriptan. Category 1 heart rate tracing through monitoring. Patient is having occasional contractions, cervix still closed. Confirmed to be cephalic on bedside ultrasound. - Recommend admission for induction of labor in the setting of preeclampsia with severe features. Explained how Heaven meets criteria for this diagnosis and the pathophysiology extensively with patient and her family. They expressed understanding and are agreeable to plan. - Start magnesium sulfate 4 g bolus followed by 2 grams/hour for seizure prophylaxis. Explained this will be continued throughout her labor course, for 24 hours . - Diligent blood pressure monitoring ongoing, plan to treat any sustained severe range blood pressures as necessary. - Strict in and out assessments - Plan to start IOL with cervical ripening via cytotec as cervix is closed - Continuous monitoring ongoing - Explained that I anticipate her induction may take a significant amount of time given prematurity and closed dilation. Explained we do not have an indication for at this time, however if there is unstable maternal/ condition could be required in the future (in addition to standard obstetric indications). - GBS unknown. Swab obtained and sent. Plan ampicillin with initiation of Pitocin/rupture of membranes unless GBS swab comes back negative in the interim. - Counseled on benefits/theoretical risks of late steroids. After discussion, patient would like to proceed. Plan to administer betamethasone #1 now, repeat in 24 hours if still . - Pediatrics to attend delivery in the setting of prematurity and preeclampsia with severe features on mag
[2025-05-14] MEDS: LACTATED RINGERS 1000 ML 1,000 ML 75 ML IV ×2 (07:10→20:55)
[2025-05-14] MEDS: MAGNESIUM IV 4 GM/100 ML PIGGYBACK IVPB (07:11)
[2025-05-14] MEDS: MAGNESIUM Infusion 40 GM/1,000 ML IV.SOLN IVPB (07:46)
[2025-05-14] MEDS: BETAMETHASONE SOD PHOS/ACETATE 6 MG/ML ML 12 MG IM (07:51)
[2025-05-14] MEDS: METOCLOPRAMIDE 10 MG TABLET PO ×2 (10:27→18:42)
[2025-05-14] MEDS: AMPICILLIN 2 GM in 0.9 % SODIUM CHLORIDE Mini-bag 100 ML IVPB (13:12)
[2025-05-14 13:24] LABS: Hematocrit 32.8 % (33.0-51.0); Hemoglobin* 10.4 gm/dL (12.0-16.0); Mean Corpuscular HGB Conc 32 gm/dL (32-36); Mean Corpuscular Hemoglobin 27 pg (26-34); Mean Corpuscular Volume 85 fL (80-100); Red Blood Count 3.86 m/uL (4.00-5.20); White Blood Count* 11.52 K/uL (4.50-11.00)
[2025-05-14 13:30] LABS: Slide Review Reflex No
[2025-05-14 13:40] LABS: Alanine Aminotransferase* 37 U/L (4-35); Aspartate Amino Transferase* 43 U/L (12-35); Blood Urea Nitrogen* 9 mg/dL (5-24); Creatinine* 0.7 mg/dL (0.5-1.5); Est. Creatinine Clearance* 117.01; Estimated Glomerular Filt Rate 125 ml/min
[2025-05-14] MEDS: CALCIUM CARBONATE 500 MG CHEW PO (13:46)
[2025-05-14] MEDS: AMPICILLIN 1 GM in 0.9 % SODIUM CHLORIDE Mini-bag 100 ML IVPB ×3 (14:55→22:44)
[2025-05-14 18:55] LABS: Hematocrit 31.6 % (33.0-51.0); Hemoglobin* 10.1 gm/dL (12.0-16.0); Mean Corpuscular HGB Conc 32 gm/dL (32-36); Mean Corpuscular Hemoglobin 27 pg (26-34); Mean Corpuscular Volume 84 fL (80-100); Red Blood Count 3.76 m/uL (4.00-5.20); White Blood Count* 12.04 K/uL (4.50-11.00)
[2025-05-14 19:00] LABS: Slide Review Reflex No
[2025-05-14 19:10] LABS: Alanine Aminotransferase* 23 U/L (4-35); Aspartate Amino Transferase* 32 U/L (12-35); Blood Urea Nitrogen* 10 mg/dL (5-24); Creatinine* 0.6 mg/dL (0.5-1.5); Est. Creatinine Clearance* 136.51; Estimated Glomerular Filt Rate 129 ml/min
--- NOTE | 2025-05-14 19:16 | P.OBPN_ITS ---
Subjective Date Seen: 05/14/25 Narrative: Feeling better, headache has improved significantly after Tylenol and Reglan. She did need another dose of Tylenol at around 5pm due to feeling as headache was restarting. Objective Vital Signs: Last Vital Signs Temp 98.3 F 05/14/25 15:38 Pulse 93 05/14/25 18:50 Resp 16 05/14/25 15:38 BP 133/88 05/14/25 18:50 Pulse Ox 96 05/14/25 15:39 Pelvic Exam Dilation (cm): 1.5 Effacement (%): 60 Station: -3 Contractions Monitor mode: External Contraction pattern: Regular Contraction intensity: Moderate Assessment Station: -3 Status: Category l Heart Rate Baseline: 120 Senior Living Variability: Moderate (6-25) Monitor Accelerations: Present Monitor Decelerations: None Maternal Status: Stable Plan Plan: 1. IOL ongoing: S/P 3 doses of vaginal Cytotec at this moment. Cervix has softened, more midline and 1.5cm/60%. Discussed possible next steps and we have decided to continue with Cytotec to complete 5 doses. Patient was significantly anxious about pain with cook catheter placement and also she is responding well to Cytotec and this way we can continue to speed up delivery and not need to wait for mechanical dilation. Plan is to switch to IV Oxytocin- we do have to wait 4 hours after last Cytotec- so this would be at around 3-4 am. Plan to AROM if able after this time. 2. IV antibiotics started due to GBS unknown status. Continue per protocol. 3. IV Morphine and Vistaril if needed overnight. 4. Preeclampsia with severe features: Magnesium infusion ongoing, no magnesium toxicity concerns, normal urine output. BPs some mildly elevated, but none severe range. Headache has improved after Tylenol and Reglan. Lab work q 6hrs being completed (noon labs AST and ALT slightly trending up, but 6pm labs all normal). Will continue close monitoring. 5. Reassuring monitoring. Continue with continuous monitoring.
[2025-05-14] MEDS: ONDANSETRON 2 MG/ML inj 4 MG IV (21:53)
[2025-05-15] VITALS (63 sets, daily range): BP systolic 96–143; BP diastolic 50–86; PULSE 72–102; RESP 14–16; TEMP 36.6–36.9; O2SAT 95–100
[2025-05-15 01:09] LABS: Hematocrit 28.6 % (33.0-51.0); Hemoglobin* 9.3 gm/dL (12.0-16.0); Mean Corpuscular HGB Conc 33 gm/dL (32-36); Mean Corpuscular Hemoglobin 28 pg (26-34); Mean Corpuscular Volume 85 fL (80-100); Red Blood Count 3.37 m/uL (4.00-5.20); White Blood Count* 15.20 K/uL (4.50-11.00)
[2025-05-15 01:10] LABS: Slide Review Reflex No
[2025-05-15 01:26] LABS: Alanine Aminotransferase* 20 U/L (4-35); Aspartate Amino Transferase* 28 U/L (12-35); Blood Urea Nitrogen* 10 mg/dL (5-24); Creatinine* 0.6 mg/dL (0.5-1.5); Est. Creatinine Clearance* 136.51; Estimated Glomerular Filt Rate 129 ml/min
[2025-05-15] MEDS: MAGNESIUM Infusion 40 GM/1,000 ML IV.SOLN IVPB ×2 (02:20→22:16)
[2025-05-15] MEDS: LACTATED RINGERS 1000 ML 1,000 ML 1075 ML IV (03:40)
[2025-05-15] MEDS: BUPIVACAINE 0.25% PF 10 ML 10 ML ML EPIDURAL (03:56)
[2025-05-15] MEDS: ROPIVACAINE 0.2% 100 ml 100 ML 12 MG EPIDURAL (03:56)
--- NOTE | 2025-05-15 04:08 | PM.ANBPRC ---
[facility] Medical History (Updated 05/14/25 @ 06:51 by Briana Sanders MD) Vaginal bleeding, abnormal ?N93.9 - Abnormal uterine and vaginal bleeding, unspecified (ICD-10) Nexplanon removal ?Z30.46 - Encounter for surveillance of implantable subdermal contraceptive (ICD-10) Surgical History No significant past surgical history Family History Other Endometriosis Social History Narrative: Patient works at [employer]. Single. Nonsmoker. Alcohol use: 1-2 per week. No illicit drug use. What is your current living situation?: I presently have a place to live Problems where you live: no known problems In the past 12 months, utilities in danger of being shut off: no In past 12 months, lack of transportation kept you from medical appts, meetings, work, or getting things needed for daily living: no In the past 12 mos, have been you worried that your food would run out before you had money to buy more?: never true In the past 12 mos, the food you bought just didn't last and you didn't have money to buy more?: never true Smoking Status: Never smoker Do you use any of these nicotine containing products: Vaping Products Second hand tobacco smoke exposure: No How often do you have a drink containing alcohol: never AUDIT-C Alcohol total score: 0 Non-prescribed substance use: former substance user, marijuana (any form) and crack/cocaine How often does anyone, including family, friends and others, physically hurt you: never How often does anyone, including family, friends and others, insult or talk down to you: never How often does anyone, including family, friends and others, threaten you with harm: never How often does anyone, including family, friends and others, scream or curse at you: never Meds Home Medications and Allergies Home Medications ?Medication ?Instructions ?Recorded ?Confirmed ?Type docosahexaenoic acid 200 mg 200 mg PO DAILY 11/14/24 05/14/25 History capsule ( DHA) cetirizine 5 mg tablet 5 mg PO QDAY PRN 11/28/24 05/14/25 History levothyroxine 25 mcg tablet 25 mcg PO QDAY #90 tabs 01/23/25 05/14/25 Rx omeprazole 20 mg capsule,delayed 20 mg PO QDAY #90 caps 03/07/25 05/14/25 Rx release gltfvmhjso-vqalfnlhpkebo-zsldyije 1 tab PO Q6H PRN pain #10 tabs 04/04/25 05/14/25 Rx 50 mg-325 mg-40 mg tablet ferrous sulfate 325 mg (65 mg 325 mg PO Q OTHER DAY #60 tabs 05/02/25 05/14/25 Rx iron) tablet,delayed release ondansetron 4 mg disintegrating 4 mg PO Q6-8H PRN nausea and 05/08/25 05/14/25 Rx tablet vomiting #30 tabs prochlorperazine maleate 10 mg 10 mg PO TID PRN vomiting #15 tabs 05/08/25 05/14/25 Rx tablet Allergies Allergy/AdvReac Type Severity Reaction Status Date / Time No Known Drug Allergies Allergy Verified 05/08/25 13:24 Results Labs Labs: Laboratory Results - last 24 hr 05/14/25 05/14/25 05/15/25 13:10 18:48 01:00 WBC 11.52 H 12.04 H 15.20 H RBC 3.86 L 3.76 L 3.37 L Hgb 10.4 L 10.1 L 9.3 L Hct 32.8 L 31.6 L 28.6 L MCV 85 84 85 MCH 27 27 28 MCHC 32 32 33 Plt Count 217 232 196 BUN 9 10 10 Creatinine 0.7 0.6 0.6 Estimated Creat Clear 117.01 136.51 136.51 Estimated GFR 125 129 129 Magnesium 5.1 H* 5.7 H* 6.0 H* AST 43 H 32 28 ALT 37 H 23 20 Vital Signs Vital Signs: Last Vital Signs Temp 98.5 F 05/14/25 23:51 Pulse 78 05/15/25 04:05 Resp 18 05/14/25 23:51 BP 121/71 05/15/25 04:05 Pulse Ox 99 05/15/25 04:00 Weight: 87.317 kg Height: 167.64 cm Anesthesia Procedures Epidural Insertion Patient Location: OB Start Time: 03:20 Stop Time: 04:15 Start Date: 05/15/25 Stop Date: 05/15/25 Reason for Block: procedure for pain Patient Position: sitting Performed By: Hank Sotelo Preanesthetic Checklist: IV checked, risks and benefits discussed, surgical consent, monitors and equipment checked, pre-op evaluation, timeout performed and anesthesia consent Prep: chlorhexidine gluconate Monitoring: blood pressure monitoring, continuous pulse oximetry and heart rate Approach: midline Vertebral Space: lumbar (1-5) Epidural Technique: KYAW saline Needle Type: Tuohy needle Injection Technique: continuous catheter Needle gauge: 17 Needle Length (cm): 10 cm Needle Insertion Depth (cm): 7 Catheter Gauge: 19 Catheter Type: multi-orifice Catheter at skin depth (cm): 12 Test Dose Result: negative and lidocaine 1.5% with epinephrine 1 to 200,000
[2025-05-15] MEDS: AMPICILLIN 1 GM in 0.9 % SODIUM CHLORIDE Mini-bag 100 ML IVPB (04:11)
[2025-05-15] MEDS: PHENYLEPHRINE 100 MCG/ML SYRINGE IVP ×2 (04:57→05:19)
[2025-05-15] MEDS: ePHEDrine sulfate 5 MG/ML inj 10 MG IVP (05:33)
[2025-05-15 07:07] LABS: Hematocrit 29.0 % (33.0-51.0); Hemoglobin* 9.3 gm/dL (12.0-16.0); Mean Corpuscular HGB Conc 32 gm/dL (32-36); Mean Corpuscular Hemoglobin 27 pg (26-34); Mean Corpuscular Volume 85 fL (80-100); Red Blood Count 3.42 m/uL (4.00-5.20); White Blood Count* 14.15 K/uL (4.50-11.00)
[2025-05-15 07:20] LABS: Slide Review Reflex No
[2025-05-15 07:28] LABS: Alanine Aminotransferase* 20 U/L (4-35); Aspartate Amino Transferase* 29 U/L (12-35); Blood Urea Nitrogen* 11 mg/dL (5-24); Creatinine* 0.6 mg/dL (0.5-1.5); Est. Creatinine Clearance* 136.51; Estimated Glomerular Filt Rate 129 ml/min
--- NOTE | 2025-05-15 08:51 | P.OBPN_ITS ---
Subjective Date Seen: 05/15/25 Narrative: Luiza is a 24-year-old woman at 36 weeks, 0 days gestation today admitted for induction of labor for indication of preeclampsia with severe features based on CASE MANAGERS irritability. Pregnancies complicated by marginal cord insertion, UTI in , and headaches. Thus far, she has been maintained on magnesium sulfate for seizure prophylaxis. HELLP labs have been stable. Blood pressures have also been stable, normal while on magnesium infusion. She had 5 doses of vaginal Cytotec for cervical ripening. She had an epidural for pain control overnight. Her last dose of Cytotec was placed vaginally at 10:00 p.m., but she has not had Pitocin augmentation the entire night due to concerns regarding heart rate tracing. This tracing is reviewed this morning. I came on to my call shift at 7:00 a.m.. Initially, at abdomen, she had a reassuring and primarily category 1 tracing. Late last night, variability varied from moderate to minimal, with long periods of time of minimal variability just before 7:00 a.m.. There were episodes of recurrent decelerations that I believe to be late; contractions were not always clearly registering on toco during these times. At 7:45 a.m., I performed the vaginal exam with scalp stimulation which resulted in increase in variability to moderate. This morning, she reports that pain is well controlled. She had previously declined placement of Cook catheter. Objective Exam: General: Pleasant, no acute distress, sleeping when I enter Abdomen: Soft, nontender, gravid Sterile vaginal exam: 1.5 cm, 75% effaced, -2 station, mid position, moderate consistency Vital Signs: Last Vital Signs Temp 98.3 F 05/15/25 07:42 Pulse 95 05/15/25 08:42 Resp 18 05/14/25 23:51 BP 128/70 05/15/25 08:42 Pulse Ox 99 05/15/25 04:00 Pelvic Exam Dilation (cm): 1.5 Effacement (%): 75 Station: -2 Contractions Monitor mode: External Contraction pattern: Regular Contraction intensity: Moderate Assessment Station: -3 Status: Category ll Heart Rate Baseline: 130 Monitor Accelerations: Present Monitor Decelerations: None Tracing Comments: Most recently category 1, with moderate variability since 7:36 a.m.. Category 2 with prolonged episodes of reduced variability throughout the night and intermittent late decelerations Labor Progress: No significant change in cervical exam after 5 doses of Cytotec for cervical ripening. Maternal Status: Preeclampsia with severe features based on mild elevation of blood pressures and CASE MANAGERS irritability. Currently maintained on magnesium sulfate for seizure prophylaxis with normal blood pressures since placement of epidural. HELLP labs are stable. Plan Plan: Given that Heaven has severe preeclampsia remote from delivery, with her cervix continuing to be unfavorable, also with prolonged category 2 tracing inhibiting use of Pitocin, we discussed options of primary for indication of persisting category 2 tracing remote from delivery, verses artificial rupture of membranes and augmentation with Pitocin. I favor the former given the appearance of the tracing overnight. Heaven agrees with plan of primary cesa rean. We discussed risks of , including bleeding/hemorrhage, infection, damage to internal organs, scarring, and impact on future pregnancies. We discussed postoperative restrictions and precautions. Consent form was reviewed with and signed by patient. Cefazolin and azithromycin for preoperative prophylaxis.
[2025-05-15] MEDS: AZITHROMYCIN 500 MG in 0.9 % SODIUM CHLORIDE 250 ml 250 ML 255 MG IVPB (09:33)
--- NOTE | 2025-05-15 10:45 | P.ANES_ITS ---
Anesthesia Charges Start Date/Time Anesthesia Start Date: 05/15/25 Anesthesia Start Time: 09:10 Stop Date/Time Anesthesia Stop Date: 05/15/25 Anesthesia Stop Time: 10:45 Summary Emergency: RIVETER HELPER Coding CPT Codes CPT Codes: ANES/ANALG CS DELIVER ADD-ON - 07772 ([id number]) P3 - PATIENT W/SEVERE SYS DISEASE, QK - INDUSTRIAL EDITOR 2-4 CNCRNT ANES PROC, QX - RIVETER HELPER SVC W/ MD MED DIRECTION Additional Codes: Summary - Emergency: RIVETER HELPER ([id number])
--- NOTE | 2025-05-15 10:45 | W.ANESCHARGE ---
Anesthesia Charges Start Date/Time Anesthesia Start Date: 05/15/25 Anesthesia Start Time: 09:10 Stop Date/Time Anesthesia Stop Date: 05/15/25 Anesthesia Stop Time: 10:45 Summary Emergency: CANDY CUTTER MACHINE Coding CPT Codes CPT Codes: ANES/ANALG CS DELIVER ADD-ON - 24147 ([id number]) P3 - PATIENT W/SEVERE SYS DISEASE, QK - APPLICATION LEAD 2-4 CNCRNT ANES PROC, QX - CANDY CUTTER MACHINE SVC W/ MD MED DIRECTION Additional Codes: Summary - Emergency: CANDY CUTTER MACHINE ([id number])
--- NOTE | 2025-05-15 10:46 | W.PM.NB ---
Nerve Block Nerve Block Time Seen by Provider: 10:40 Date Seen: 05/15/25 Type of block requested by surgeon for post-operative analgesia: TAP Side: bilateral Time out performed: Yes Verification of patient name: Yes Verification of date of : Yes Site marking: site marked Name of person performing procedure: mantyl Continuous monitoring Was continuous monitoring of O2 sat, B/P, registered nurse cardiac telemetry, recorded every 15 minutes?: Yes Procedure Checklist: sterile prep and needles Ultrasound guided. Images saved: Yes Medications given in 5ml increments after negative aspiration: Marcaine %: 0.25 mL: 30 and Exparel mL: 10 Patient tolerated procedure well: Yes Block Charges Block Charge (with Pro Fee): TAP Bilateral Use of Ultrasound Machine for Block: Yes- US Guidance/pain block
--- NOTE | 2025-05-15 10:50 | PM.OBPRCCS ---
Procedure Date of procedure: 05/15/25 Pre-op diagnosis: 36 weeks, 0 days gestation Preeclampsia with severe features Persistent category 2 tracing remote from delivery Post-op diagnosis: same Procedure Done: Global Will [facility] bill your pro fee for this procedure?: Yes Blood Loss Measurement Type: QBL (818) Bakri Used: No IV fluids (mL): 1,000 Urine Output Comment: Not measured intraoperatively; Williamson full at entry to OR Surgeon: Nhung Brenner MD Construction Person: Jaja GREENE Anesthesia Type: Epidural Findings: 1. Male infant, cephalic 0 P presentation, Apgars of 7 and 8, weight 3030 g = 6 lb, 11 oz 2. Normal appearance of uterus, bilateral tubes and ovaries Procedure Name: Primary low-transverse delivery Procedure Description: Patient was taken to the operating room with IV running. She received cefazolin and azithromycin in preoperative prophylaxis. Epidural anesthesia had previously been administered. Williamson catheter was in place. She was prepped and draped in the usual sterile fashion. Anesthesia was tested and found to be adequate. A low-transverse skin incision was made with a scalpel and carried through to the underlying layer of fascia with the scalpel. The subcutaneous fat was dissected off the underlying fascia bluntly. The fascia was nicked in the midline with a scalpel, and this incision was extended laterally with scissors. The rectus muscles were in the midline. Peritoneum was identified and entered bluntly. Bovie was used to widen this opening laterally. Raheem O retractor was inserted and tightened down, providing excellent visualization of the lower uterine segment. The bladder reflection was found to be well below the planned site for hysterotomy. Low-transverse uterine incision was made with a scalpel. Incision was widened bluntly. The 's head was grasped through the hysterotomy and delivered with the help of fundal pressure. The remainder of the body delivered without incident. Cord was clamped and cut after 30 seconds. was handed off to attending nurses. The placenta was delivered with gentle traction on the cord. The uterus was cleaned of all clots and debris with the dry lap pad. The hysterotomy was reapproximated with 0 Vicryl in a running, locked fashion. Second layer of the same suture was used in imbricating fashion to obtain hemostasis. The adnexa were examined and noted to be normal in appearance. The gutters were cleansed with dampened laparotomy sponge, removing any further clots and debris. The Raheem O retractor was removed. The hysterotomy was reexamined and Bovie used for hemostasis. The peritoneum was reapproximated with 2 0 Vicryl in a running fashion. The rectus muscles were examined and found to be hemostatic. The fascia was reapproximated with 0 Vicryl in a running fashion. Subcutaneous fat was irrigated and Bovie used on oozing vessels. The subcutaneous fat was reapproximated with 2 0 plain gut suture in an interrupted fashion. The skin was closed with a subcuticular stitch of 4-0 Monocryl. Surgical glue was applied above this. Patient tolerated procedure with difficulty initially and was treated with IV pain medications intraoperatively. She was taken to recovery area in stable condition. Complications: None Pathology: specimen obtained, sent to pathology (Placenta) Surgery Debrief Performed: Yes Surgery Debrief Comment: Postoperative debrief was verbalized with OR staff, including a verification of pathology specimens to be sent as described above. Disposition: floor
[2025-05-15 11:09] LABS: Strep B DNA Probe Negative (Negative)
--- NOTE | 2025-05-15 11:44 | P.ANES_ITS ---
Anesthesia Charges Start Date/Time Anesthesia Start Date: 05/15/25 Anesthesia Start Time: 09:10 Stop Date/Time Anesthesia Stop Date: 05/15/25 Anesthesia Stop Time: 10:45 Summary Emergency: ANASTACIA Coding CPT Codes CPT Codes: ANES/ANALG CS DELIVER ADD-ON - 12204 ([id number]) QK - FOOD COUNSELOR 2-4 CNCRNT ANES PROC, QX - WELL HEAD PUMPER SVC W/ MD MED DIRECTION, P3 - PATIENT W/SEVERE SYS DISEASE Additional Codes: Summary - Emergency: ANASTACIA ([id number])
--- NOTE | 2025-05-15 11:44 | W.ANESCHARGE ---
Anesthesia Charges Start Date/Time Anesthesia Start Date: 05/15/25 Anesthesia Start Time: 09:10 Stop Date/Time Anesthesia Stop Date: 05/15/25 Anesthesia Stop Time: 10:45 Summary Emergency: ANASTACIA Coding CPT Codes CPT Codes: ANES/ANALG CS DELIVER ADD-ON - 19318 ([id number]) QK - [employer] LIMOUSINE 2-4 CNCRNT ANES PROC, QX - DESIGNATED BROKER SVC W/ MD MED DIRECTION, P3 - PATIENT W/SEVERE SYS DISEASE Additional Codes: Summary - Emergency: ANASTACIA ([id number])
[2025-05-15 11:59] LABS: Strep B Susceptibility Needed? No
[2025-05-15] MEDS: FERROUS SULFATE 325 MG TABLET PO (12:16)
[2025-05-15 13:25] LABS: Hematocrit 25.6 % (33.0-51.0); Hemoglobin* 8.3 gm/dL (12.0-16.0); Mean Corpuscular HGB Conc 32 gm/dL (32-36); Mean Corpuscular Hemoglobin 27 pg (26-34); Mean Corpuscular Volume 85 fL (80-100); Red Blood Count 3.03 m/uL (4.00-5.20); White Blood Count* 17.47 K/uL (4.50-11.00)
[2025-05-15 13:28] LABS: Slide Review Reflex No
[2025-05-15 13:52] LABS: Alanine Aminotransferase* 19 U/L (4-35); Aspartate Amino Transferase* 30 U/L (12-35); Blood Urea Nitrogen* 11 mg/dL (5-24); Creatinine* 0.7 mg/dL (0.5-1.5); Est. Creatinine Clearance* 117.01; Estimated Glomerular Filt Rate 125 ml/min
[2025-05-15 19:16] LABS: Hematocrit 24.4 % (33.0-51.0); Mean Corpuscular HGB Conc 32 gm/dL (32-36); Mean Corpuscular Hemoglobin 27 pg (26-34); Mean Corpuscular Volume 84 fL (80-100); Red Blood Count 2.89 m/uL (4.00-5.20); White Blood Count* 16.22 K/uL (4.50-11.00)
[2025-05-15 19:23] LABS: Hemoglobin* 7.9 gm/dL (12.0-16.0); Slide Review Reflex No
[2025-05-15 19:35] LABS: Alanine Aminotransferase* 18 U/L (4-35); Aspartate Amino Transferase* 31 U/L (12-35); Blood Urea Nitrogen* 12 mg/dL (5-24); Creatinine* 0.8 mg/dL (0.5-1.5); Est. Creatinine Clearance* 102.39; Estimated Glomerular Filt Rate 106 ml/min
[2025-05-15] MEDS: ACETAMINOPHEN 500 MG TABLET 1000 MG PO (20:38)
[2025-05-15] MEDS: LACTATED RINGERS 1000 ML 1,000 ML 75 ML IV (22:15)
[2025-05-16] VITALS (11 sets, daily range): BP systolic 111–135; BP diastolic 64–87; PULSE 80–91; RESP 16–18; TEMP 36.9–37.3; O2SAT 95–98
[2025-05-16 01:15] LABS: Hematocrit 23.8 % (33.0-51.0); Mean Corpuscular HGB Conc 32 gm/dL (32-36); Mean Corpuscular Hemoglobin 28 pg (26-34); Mean Corpuscular Volume 85 fL (80-100); Red Blood Count 2.80 m/uL (4.00-5.20); White Blood Count* 13.52 K/uL (4.50-11.00)
[2025-05-16 01:17] LABS: Hemoglobin* 7.7 gm/dL (12.0-16.0); Slide Review Reflex No
[2025-05-16 01:46] LABS: Alanine Aminotransferase* 16 U/L (4-35); Aspartate Amino Transferase* 31 U/L (12-35); Blood Urea Nitrogen* 16 mg/dL (5-24); Creatinine* 0.9 mg/dL (0.5-1.5); Est. Creatinine Clearance* 91.01; Estimated Glomerular Filt Rate 92 ml/min
[2025-05-16] MEDS: ACETAMINOPHEN 500 MG TABLET 1000 MG PO ×2 (03:17→18:13)
[2025-05-16] MEDS: LEVOTHYROXINE 25 MCG TABLET PO (06:07)
[2025-05-16 07:07] LABS: Hematocrit 21.8 % (33.0-51.0); Mean Corpuscular HGB Conc 33 gm/dL (32-36); Mean Corpuscular Hemoglobin 28 pg (26-34); Mean Corpuscular Volume 85 fL (80-100); Red Blood Count 2.56 m/uL (4.00-5.20); White Blood Count* 13.47 K/uL (4.50-11.00)
[2025-05-16 07:08] LABS: Hemoglobin* 7.1 gm/dL (12.0-16.0); Slide Review Reflex No
[2025-05-16 07:37] LABS: Alanine Aminotransferase* 15 U/L (4-35); Aspartate Amino Transferase* 28 U/L (12-35); Blood Urea Nitrogen* 18 mg/dL (5-24); Creatinine* 1.0 mg/dL (0.5-1.5); Est. Creatinine Clearance* 81.91; Estimated Glomerular Filt Rate 81 ml/min
--- NOTE | 2025-05-16 08:26 | P.OBPN_ITS ---
OB - PN:Subj Subjective Time Seen by Provider: 08:10 Date Seen: 05/16/25 Interval history: Feeling groggy on magnesium. I had The nurse discontinue her magnesium this morning at 8:10 a.m. due to patient's symptoms and creatinine of 1.0 this morning. Her magnesium was scheduled to be turned off at 9:45 a.m. so she has received seizure prophylaxis. She also has significant anemia with a hemoglobin of 7.1 this morning. She denies feeling dizzy or lightheaded when she was up early this morning to use the restroom. I asked the nurse to do orthostatic vital signs forming and if there is evidence of abnormalities with these vital signs I will give the patient a unit of packed red blood cells. Iron supplementation is ordered. The patient states her pain is moderately well controlled but she has not received any pain medication since midnight. She is tolerating a regular diet. Passing flatus. Emptying her bladder without difficulty. Urine output is adequate. She is pumping and giving colostrum in addition to formula supplementation. I have asked the nurse to have the field technical support consultant see the patient today. Patient comments OB post-: tolerating diet and flatus present [place] status: doing well OB - PN: Obj Exam Physical Exam: Vital signs: Temp Pulse Resp BP Pulse Ox O2 Del Method 98.4 F 91 16 120/73 95 Room Air 05/15/25 19:43 05/16/25 04:23 05/16/25 04:23 05/16/25 06:04 05/16/25 04:23 05/16/25 04:23 Narrative: General: Pleasant, , well groomed woman in no acute distress. Vital signs: Included in her electronic medical record. Heart: Regular rate and rhythm without gallop, rub or murmur. Chest: Clear to auscultation bilaterally. Abdomen: Soft, nontender and nondistended with normal bowel sounds throughout. No CVA or flank tenderness. Fundus is firm 2 cm below the umbilicus in the midline. Incision(s): Clean, dry and intact with subcutaneous sutures and skin adhesive gel. Extremities: No pain or edema. SCDs in place. OB - PN: Obj Data Labs Labs: Laboratory Results - last 24 hr 05/14/25 05/15/25 05/15/25 06:57 13:13 19:02 WBC 17.47 H 16.22 H RBC 3.03 L 2.89 L Hgb 8.3 L 7.9 L* Hct 25.6 L 24.4 L MCV 85 84 MCH 27 27 MCHC 32 32 Plt Count 176 179 BUN 11 12 Creatinine 0.7 0.8 Estimated Creat Clear 117.01 102.39 Estimated GFR 125 106 Magnesium 6.9 H* 7.2 H* AST 30 31 ALT 19 18 Group B Strep DNA Negative 05/16/25 05/16/25 01:08 07:02 WBC 13.52 H 13.47 H RBC 2.80 L 2.56 L Hgb 7.7 L* 7.1 L* Hct 23.8 L 21.8 L MCV 85 85 MCH 28 28 MCHC 32 33 Plt Count 165 183 BUN 16 18 Creatinine 0.9 1.0 Estimated Creat Clear 91.01 81.91 Estimated GFR 92 81 Magnesium 7.3 H* 7.6 H* AST 31 28 ALT 16 15 Group B Strep DNA OB - PN: A/P Delivery Assessment and Plan (1) Preeclampsia, severe: Status: Acute Assessment and Plan: 1. Magnesium discontinued this morning. 2. Another set of labs was ordered for tomorrow morning. 3. Continue to monitor blood pressure and start antihypertensives if indicated (2) Anemia affecting : Status: Acute Assessment and Plan: 1. Orthostatic vital signs and if normal will give the patient a unit of packed red blood cells. 2. Iron supplementation ordered
[2025-05-16] MEDS: DOCUSATE SODIUM 100 MG CAPSULE PO (20:24)
[2025-05-17] VITALS (7 sets, daily range): BP systolic 106–157; BP diastolic 63–96; PULSE 75–99; RESP 16–18; TEMP 36.9–37.2; O2SAT 97–98
[2025-05-17] MEDS: IBUPROFEN 600 MG TABLET PO ×4 (00:10→23:16)
[2025-05-17] MEDS: ACETAMINOPHEN 500 MG TABLET 1000 MG PO ×3 (03:54→20:35)
[2025-05-17 06:23] LABS: Alanine Aminotransferase* 15 U/L (4-35); Aspartate Amino Transferase* 26 U/L (12-35); Blood Urea Nitrogen* 24 mg/dL (5-24); Creatinine* 0.8 mg/dL (0.5-1.5); Est. Creatinine Clearance* 102.39; Estimated Glomerular Filt Rate 106 ml/min
[2025-05-17 06:25] LABS: Hematocrit 24.6 % (33.0-51.0); Mean Corpuscular HGB Conc 32 gm/dL (32-36); Mean Corpuscular Hemoglobin 28 pg (26-34); Mean Corpuscular Volume 86 fL (80-100)
[2025-05-17 06:26] LABS: Slide Review Reflex No
[2025-05-17 06:29] LABS: Hemoglobin* 7.9 gm/dL (12.0-16.0); Red Blood Count 2.86 m/uL (4.00-5.20); White Blood Count* 11.74 K/uL (4.50-11.00)
--- NOTE | 2025-05-17 07:29 | PM.OBDSVD1 ---
DS: Providers Provider Time Seen by Provider: 07:30 Date Seen: 05/17/25 Date of admission: 05/14/25 07:59 Primary care physician: Gregory Cash MD Admitting Clinician: Yaima Perera MD Attending Physician on discharge: Yaima Perera MD Date of Discharge: 05/17/25 DS: Diagnosis Discharge Diagnosis (1) Status post primary low transverse section: Status: Acute Problem details: 36w0d, Henry, persistent category 2 tracing. 6#11oz. (2) Preeclampsia, severe: Status: Acute Exam Const: Vital Signs, click to edit/add: Vital Signs - 24 hr 05/16/25 07:55 05/16/25 07:55 05/16/25 08:00 Temperature 98.5 F Pulse Rate [Pulse Oximeter] 83 83 83 Respiratory Rate 16 Blood Pressure [Le ft Arm] 111/64 111/64 131/80 Pulse Oximetry 95 Oxygen Delivery Me thod Room Air 05/16/25 08:05 05/16/25 12:30 05/16/25 16:00 Temperature 98.6 F 99.1 F Pulse Rate [Pulse Oximeter] 86 80 88 Respiratory Rate 16 16 Blood Pressure [Le ft Arm] 126/74 121/76 123/85 Pulse Oximetry 97 Oxygen Delivery Me thod Room Air 05/16/25 20:04 05/16/25 23:56 05/17/25 03:49 Temperature 98.5 F 98.7 F 98.5 F Pulse Rate [Pulse Oximeter] 80 82 99 Respiratory Rate 18 18 18 Blood Pressure [Le ft Arm] 134/86 135/87 130/80 Pulse Oximetry 98 Oxygen Delivery Me thod Room Air OB - DS: Summary Hospital Course Hospital Course: The patient is a 24 year old G2, now P1 who was admitted to the Center on 05/14/25 at 35.6 week for preeclampsia with severe features (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 After over 24 hours of attempted IOL, she was only 1.5/75/-2, with nonreassuring heart tracing remote from delivery. Decision was made for delivery. She had an uncomplicated delivery. She delivered a viable male infant. She is breast feeding. the patient has done well. Peripartum Data Procedures: Procedures Operation Date: 05/15/25 09:00 Actual Procedure Side Surgeon p Primary Low Transverse Section Nhung Brenner MD [place] Gender: Male Time Spent with Patient Time attestation: Total time spent providing and/or coordinating discharge services: Discharge Plan Discharge Date of Admission: 05/14/25 07:59 Attending Physician on Admission: Yaima Perera Primary Care Provider: Gregory Cash Discharge Medications: No Action cetirizine 5 mg tablet 5 mg PO QDAY PRN levothyroxine 25 mcg tablet 25 mcg PO QDAY Qty: 90 3RF omeprazole 20 mg capsule,delayed release(DR/EC) 20 mg PO QDAY Qty: 90 1RF khkzzbttmx-phyucbvqynhhd-iafm 50-325-40 mg tablet 1 tab PO Q6H PRN (Reason: pain) Qty: 10 0RF DHA 200 mg capsule 200 mg PO DAILY ferrous sulfate 325 mg (65 mg iron) tablet,delayed release (DR/EC) 325 mg PO Q OTHER DAY Qty: 60 0RF prochlorperazine maleate 10 mg tablet 10 mg PO TID PRN (Reason: vomiting) Qty: 15 0RF ondansetron 4 mg tablet,disintegrating 4 mg PO Q6-8H PRN (Reason: nausea and vomiting) Qty: 30 0RF Follow Up Appointments: Gregory Cash MD [Primary Care Provider, Family Practice]
[2025-05-17] MEDS: DOCUSATE SODIUM 100 MG CAPSULE PO ×2 (08:23→20:35)
[2025-05-17] MEDS: FERROUS SULFATE 325 MG TABLET 650 MG PO (08:23)
[2025-05-17] MEDS: LEVOTHYROXINE 25 MCG TABLET PO (08:54)
[2025-05-17] MEDS: ONDANSETRON 2 MG/ML inj 4 MG IVP (09:35)
--- NOTE | 2025-05-17 14:14 | PM.OBPNVD1 ---
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 After over 24 hours of attempted IOL, she was only 1.5/75/-2, with nonreassuring heart tracing remote from delivery. Decision was made for delivery. She had an uncomplicated delivery. She delivered a viable male infant. She is breast feeding. She received 24 hours of magnesium sulfate . Headache has improved. She has a low hemoglobin, likely from acute blood loss anemia from her delivery. She is asymptomatic and hemoglobin has stabilized. Orthostatic vitals within normal limits. Plan was for d/c home today. However, right before discharge, she started having mild ranging blood pressure, initially thought due to pain. However, there were a few more mild ranging blood pressure throughout the day. Discharged was discontinued, she was started on Nifedipine XL 30 mg QD. She is sad about having to stay another night. However, she understands the rationale. Overnight patient had no complaints. Her pain is well controlled on oral pain medications. She is tolerating a regular diet. She has passed flatus. She is ambulating without difficulty. Lochia is scant. She is urinating without bell. Patient denies chest pain, SOB, n/v, headache, RUQ pain, vision changes, dizziness. OB - PN: Obj Exam Physical Exam: Vital signs: Temp Pulse Resp BP Pulse Ox O2 Del Method 99 F 78 18 144/88 H 97 Room Air 05/17/25 08:17 05/17/25 08:17 05/17/25 08:17 05/17/25 08:45 05/17/25 08:17 05/17/25 08:17 Narrative: Physical exam: General: No acute distress Psych: Alert and oriented x4, full affect HEENT: Normocephalic, atraumatic Heart: Regular rate and rhythm, no murmur rub or gallop Lungs: Clear to auscultation bilaterally Abdomen: Normoactive bowel sounds, soft, no tenderness, rebound, or guarding Incision(s): Appropriately tender to palpation. Clean, dry, and intact. No erythema, induration, or abnormal discharge/breakdown Skin: No lesions or rashes Lower extremities: 1+ bilateral lower extremity edema Pelvic exam: Scant blood on pad OB - PN: Obj Data Labs Labs: Laboratory Results - last 24 hr 05/17/25 05:45 WBC 11.74 H RBC 2.86 L Hgb 7.9 L* Hct 24.6 L MCV 86 MCH 28 MCHC 32 Plt Count 233 BUN 24 Creatinine 0.8 Estimated Creat Clear 102.39 Estimated GFR 106 AST 26 ALT 15 OB - PN: A/P Delivery Assessment and Plan (1) Status post primary low transverse section: Problem details: 36w0d, Henry, persistent category 2 tracing. 6#11oz. Status: Acute (2) Preeclampsia, severe: Status: Acute Assessment and Plan: - s/p 24 hours of magnesium sulfate - pre E labs within normal limits this a.m. 0545: Platelets 233, creatinine 0.8, AST 26, ALT 15 - Started on PO antihypertensive: Nifedipine XL 30 mg q.day - Will continue to monitor overnight (3) Anemia affecting : Status: Acute Assessment and Plan: - hemoglobin trend: 9.3 (05/15 prior to CD) --> post CD --> 8.3 --> 7.9 --> 7.7 --> 7.1 --> 7.9 - Patient is asymptomatic - vital signs stable, orthostatics vital signs within normal limits as well - deferred blood transfusion due to stabilization of hemoglobin and patient being asymptomatic - p.o. iron Q 48 hours
--- NOTE | 2025-05-17 18:26 | PC.NURSE ---
Nursing Care Hours: [id number] Pt this shift calm and cooperative. Pt teary eyed this afternoon about wanting to go home. BP frequent checks d/t elevated BP x2 this AM with epigastric pain and nausea. OB MD updated. Antinausea and pain medication given and symptoms relieved. Started on PO antihypertensive this shift. BP taken before and after see VS. Denies dizziness or lightheadedness. Fundus noted to be above umbilicus this evening with severe left side pain per pt. Pt voided, ambulated short distance in hyman and pain meds given. Fundus recheck shows below umbilicus. Abdominal binder being used.
[2025-05-18] MEDS: ACETAMINOPHEN 500 MG TABLET 1000 MG PO ×2 (03:10→08:51)
[2025-05-18 03:11] VITALS: BP 142/82; PULSE 90; RESP 18; TEMP 36.9; O2SAT 99
[2025-05-18 07:35] VITALS: BP 134/83; PULSE 82; RESP 18; TEMP 36.6; O2SAT 97
[2025-05-18] MEDS: LEVOTHYROXINE 25 MCG TABLET PO (08:13)
--- NOTE | 2025-05-18 08:15 | PM.OBDSVD1 ---
DS: Providers Provider Time Seen by Provider: 08:15 Date Seen: 05/18/25 Date of admission: 05/14/25 07:59 Primary care physician: Gregory Cash MD Admitting Clinician: Yaima Perera MD Attending Physician on discharge: Nicho Sanders MD Exam Narrative: Exam Narrative: Physical exam: General: No acute distress Psych: Alert and oriented x3, full affect Heart: Regular rate and rhythm, no murmur rub or gallop Lungs: Clear to auscultation bilaterally Abdomen: Soft, nondistended. Mild tenderness to palpation of the lower quadrants, consistent with postoperative state. No rebound or guarding. Fundus at 1 below umbilicus, firm. Incision is clean/dry and intact. Extremities: 2+ pitting edema bilaterally to level of the shins. No calf erythema or tenderness. Const: Vital Signs, click to edit/add: Vital Signs - 24 hr 05/17/25 08:17 05/17/25 08:45 05/17/25 16:00 Temperature 99 F 98.6 F Pulse Rate [Pulse Oximeter] 78 75 Respiratory Rate 18 16 Blood Pressure [Le ft Arm] 157/96 H 144/88 H 126/79 Pulse Oximetry 97 97 Oxygen Delivery Me thod Room Air Room Air 05/17/25 18:15 05/17/25 20:19 05/17/25 23:17 Temperature 98.9 F Pulse Rate [Pulse Oximeter] 80 78 Respiratory Rate 16 18 Blood Pressure [Le ft Arm] 106/63 137/84 133/83 Pulse Oximetry 98 98 Oxygen Delivery Me thod Room Air Room Air 05/18/25 03:11 Temperature 98.5 F Pulse Rate [Pulse Oximeter] 90 Respiratory Rate 18 Blood Pressure [Le ft Arm] 142/82 H Pulse Oximetry 99 Oxygen Delivery Me thod Room Air OB - DS: Summary Hospital Course Hospital Course: The patient is a 24 year old G 2 P 1 at 36 weeks gestation that was admitted to the Center on 05/14/25 for induction of labor in the setting of preeclampsia with severe features (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 After over 24 hours of attempted IOL, she was only 1.5/75/-2, with nonreassuring heart tracing remote from delivery. Decision was made for delivery. She had an uncomplicated delivery. She delivered a viable male infant. She is breast feeding. She received 24 hours of magnesium sulfate . She notes her headache, vision changes and right upper quadrant pain have all resolved. Blood pressures have been in the normal to mild range, started on nifedipine XL 30 mg daily yesterday. Since that time, her blood pressures have largely been within normal limits with only 1 value in the low mild range. She continues to be asymptomatic. She had serial labs completed during hospitalization, last yesterday morning which were within normal limits (aside from hemoglobin of 7.9, stable from previous checks). Patient notes she is feeling well this morning. She is very much looking forward to leaving the hospital. She notes her pain is well controlled, rated at 3/10 in severity. She is utilizing Tylenol, NSAIDs and oxycodone as needed. Appetite is good, no nausea/vomiting. No bowel or bladder concerns, notes robust urine output. She has passed gas and bowel movement x1. Lochia is described as small volume. No chest pain, dyspnea, dizziness/lightheadedness, lower extremity pain/erythema. She does have bilateral edema, notes this has been essentially unchanged in her course. Peripartum Data Procedures: Procedures Operation Date: 05/15/25 09:00 Actual Procedure Side Surgeon p Primary Low Transverse Section Nhung Brenner MD [place] Infant Gender: Male Time Spent with Patient Time attestation: Total time spent providing and/or coordinating discharge services: Discharge Plan Discharge Disposition: Home, Self-Care Date of Admission: 05/14/25 07:59 Attending Provider on Discharge: Tamara Darden Primary Care Provider: Gregory Cash Condition: Stable Anticipated Discharge Date/Time: 05/17/25 12:00 Discharge Medications: New acetaminophen 500 mg Tablet 1,000 mg PO Q6H PRN (Reason: Pain) 30 Days Qty: 60 0RF docusate sodium 100 mg Capsule 100 mg PO BID Qty: 60 0RF ferrous sulfate 325 mg (65 mg iron) Tablet 650 mg PO Q48H 30 Days Qty: 30 0RF ibuprofen 600 mg Tablet 600 mg PO Q6H PRN (Reason: Pain) 30 Days Qty: 60 0RF Lanolin (HPA) 100 % Cream 1 applic topical Q1H PRNQty: 21 0RF simethicone 80 mg Tablet,Chewable 80 - 160 mg PO Q4H PRN (Reason: Gas) 30 Days Qty: 30 0RF oxycodone 5 mg Tablet 5 mg PO Q6H PRN (Reason: Pain) 14 Days Qty: 15 0RF polyethylene glycol 3350 [Miralax] 17 gram/dose powder 17 g PO DAILY Qty: 119 0RF nifedipine 30 mg Tablet Extended Release 30 mg PO DAILY Qty: 30 1RF Continued cetirizine 5 mg tablet 5 mg PO QDAY PRN levothyroxine 25 mcg tablet 25 mcg PO QDAY Qty: 90 3RF omeprazole 20 mg capsule,delayed release(DR/EC) 20 mg PO QDAY Qty: 90 1RF mtpmmawhnm-gjyitquyunzir-qcep 50-325-40 mg tablet 1 tab PO Q6H PRN (Reason: pain) Qty: 10 0RF DHA 200 mg capsule 200 mg PO DAILY ferrous sulfate 325 mg (65 mg iron) tablet,delayed release (DR/EC) 325 mg PO Q OTHER DAY Qty: 60 0RF prochlorperazine maleate 10 mg tablet 10 mg PO TID PRN (Reason: vomiting) Qty: 15 0RF ondansetron 4 mg tablet,disintegrating 4 mg PO Q6-8H PRN (Reason: nausea and vomiting) Qty: 30 0RF Discharge Orders: Discharge Order (Routine); Ordered 05/17/25 Ordered By: Tamara Darden Patient Education: Preeclampsia and Eclampsia After Delivery (GEN) Discharge Diet: Regular Follow Up Appointments: Gregory Cash MD [Primary Care Provider, Family Practice] Forms: [facility] Belongings, [facility] Instructions Discharge Comments: POSTOPERATIVE INSTRUCTIONS ACTIVITY No heavy lifting/pushing/pulling for 4-6 weeks. Do not lift anything more than about 10-15 lbs (such as laundry, groceries, children, pets), vacuum, push heavy doors or grocery carts, etc. You may climb stairs as tolerated. Do not put anything in the vagina for 6 weeks after surgery unless otherwise instructed by your doctor (including tampons, douching, sexual intercourse, etc). No driving for about 2 weeks after surgery, while you are taking narcotic pain medication, or until you feel that you are ready. Practice checking your blind spot and stepping hard on the brake. Avoid sitting or lying in bed for more than 2 hours at a time while you are awake to reduce your risk of blood clots. You may return to work when directed by your physician. Please contact your doctor if you need any return to work letters or medical leave paperwork to be completed. WOUND CARE You will have one large incision on your abdomen. There will be dissolvable stitches under your skin that do not need to be removed. You will also have surgical glue on the incisions and these may be removed like a Band-Aid when they curl up at the edges. Shower daily after surgery. Clean your incision with mild antibacterial soap and water. Pat your incision dry with a clean towel. No tub baths until wound is completely healed. Wash your hands frequently, especially before touching your incision, changing any dressings, after using the restroom, and before eating. PAIN MANAGEMENT Take your oral pain medication as needed. You should be taking Ibuprofen 600mg every 6 hours with 1 gram of Tylenol every 6 hours. You can take these together every six hours or alternate them every 3 hours. You should then take the oxycodone as needed if you have breakthrough pain on top of the Tylenol and Ibuprofen. Some pain medications and oral iron can cause constipation so you should take a stool softener (i.e. colace) while you are on these medications. You may also take milk of magnesia or Miralax for constipation. WHAT TO EXPECT AT HOME Recovery from surgery is generally 4-6 weeks, but sometimes longer for more strenuous activity. It is normal to be very tired during this time. It is normal to have some drainage or a small amount of vaginal bleeding after surgery which may last up to 6 weeks. You will most likely experience gas pain, abdominal swelling, or shoulder pain for 24-72 hours after surgery. A warm shower, heating pad, and/or walking may help. BLOOD PRESSURE MANAGEMENT - Take your blood pressure x2 daily and write these values on BP log - Please call and present to ED emergently with any BP values greater than or equal to 160/110mmHg - Please check your BP, call and present to care with unrelenting headache, vision changes or right upper quadrant pain WHEN TO CALL YOUR DOCTOR : Symptoms to report to doctor: -Bleeding that saturates more than one pad per hour ?-Passing clots larger than the size of a golf ball ?-Pain not relieved by prescribed medication ?-Fever above 100.4 degrees Fahrenheit ?-A foul vaginal odor ?-Difficulty in emotions, mood and functions ?-Thoughts of hurting yourself and/or ?-Painful, reddened area in your breast ?-Any drainage, redness or tenderness in your IV/epidural site ?-Severe headache that doesn't improve after taking medications ?-Changes in vision, including temporary loss of vision, blurred vision, and/or light sensitivity ?-Upper abdominal pain (usually under ribs on the right side) ?-Decrease in urination or painful, frequent urinating ?-Tenderness or pain with redness and/swelling in the calf(s) of your leg Follow Up with a [facility] provider: - 3-5 days for blood pressure check. Blood pressure teaching provided prior to discharge - 2 week visit: Answer concerns for infant care, screen for anxiety/depression. - 6 week visit: Annual exam. CALL 911 OR GO TO THE EMERGENCY ROOM IF YOU HAVE: Any shortness of breath, difficulty breathing, or chest pain.
[2025-05-18] MEDS: FERROUS SULFATE 325 MG TABLET 650 MG PO (08:49)
[2025-05-18] MEDS: DOCUSATE SODIUM 100 MG CAPSULE PO (08:49)
== END 2025-05-18 11:15 | disposition home or self-care (01) | DRG 540 ==
LOC: OB OUT 08:00 → OB 14:18
PROVIDERS: Obstetrics & Gynecology; Admitting Provider Obstetrics & Gynecology; PCP Family Medicine; Visit Provider Obstetrics & Gynecology
PROC: 10D00Z1 Extraction of Products of Conception, Low, Open Approach (ICD-10-PCS; CPT 59514; principal; 2025-05-15 09:00)
DX: O14.14 Severe pre-eclampsia complicating childbirth (principal); O76 Abnormality in fetal heart rate and rhythm complicating labor and delivery; G89.18 Other acute postprocedural pain; G43.109 Migraine with aura, not intractable, without status migrainosus; O99.02 Anemia complicating childbirth; D62 Acute posthemorrhagic anemia; O99.284 Endocrine, nutritional and metabolic diseases complicating childbirth; O43.193 Other malformation of placenta, third trimester; E03.8 Other specified hypothyroidism; Z37.0 Single live birth; Z3A.35 35 weeks gestation of pregnancy
CPT/HCPCS: 01967; 01968; 36415; 59200; 64488; 76942; 80053; 81001; 81003; 82565; 82570; 83735; 84156; 84450; 84460; 84520; 85025; 85027; 86592; 87081; 87086; 87181; 87653; 88307; 99140; G0463; A4314; A9270; J0290; J0456; J0665; J0666; J0690; J0702; J1100; J1885; J2270; J2371; J2405; J2590; J2795; J3010; J3475; J7050; J7120

== ENCOUNTER 2025-06-27 15:09 | Outpatient (CLI) | payer BC, SELFPAY | END 2025-06-27 15:10 | disposition home or self-care (01) | LOC: NFLDREF 15:10 | PROVIDERS: PCP Family Medicine; Visit Provider Physician Assistant | DX: E03.8 Other specified hypothyroidism (principal) | CPT/HCPCS: 84439; 84443 ==

== ENCOUNTER 2025-09-23 15:42 | Outpatient (CLI) | payer BC, SELFPAY ==
--- NOTE | 2025-09-23 15:45 | CRLHL7_ITS ---
For Patients: As a result of the Cures Act, medical imaging exams and procedure reports are released immediately into your electronic medical record. You may view this report before your referring provider. If you have questions, please contact your health care provider. OB ULTRASOUND LESS THAN 14 WEEKS CLINICAL HISTORY: Dating and viability. TECHNIQUE: Grayscale and color Doppler ultrasound of the uterus and ovaries from a transvaginal approach. Transvaginal ultrasound of the pelvis was performed to better evaluate the genitourinary organs such as the ovaries and/or endometrium. COMPARISON: None. FINDINGS: Imaging: TV. LMP: Unknown. CRL: 3.0 cm, 9 weeks 6 days. LISA: 04/22/2026. FHR: 176 bpm. GEST SAC: 4.9 cm appears WNL. YOLK SAC: 4.0 mm, appears WNL. RIGHT OV: 4.1 x 2.5 x 2.2 cm. CL. LEFT OV: N/V. IMPRESSION: 1. Sonographic gestational age 9 weeks 6 days with sonographic due date 04/22/2026. 2. Corpus luteal cyst right ovary. 3. Right inferior subchorionic hemorrhage measures 5.0 x 2.4 x 4.1 cm. Wilder Church M.D. Diagnostic Radiologist [email or web address] Transcribed: 9:16 am DW/Dictated by: Wilder Church MD @ 09/24/2025 6:39:00 AM (Electronically Signed)
== END 2025-09-23 15:43 | disposition home or self-care (01) ==
LOC: US 15:43
PROVIDERS: PCP Family Medicine; Visit Provider Physician Assistant
DX: O03.4 Incomplete spontaneous abortion without complication (principal); E07.9 Disorder of thyroid, unspecified
CPT/HCPCS: 76817

== ENCOUNTER 2025-09-23 17:33 | Outpatient (CLI) | payer BC, SELFPAY | END 2025-09-23 17:34 | disposition home or self-care (01) | LOC: NFLDREF 17:36 | PROVIDERS: PCP Family Medicine; Visit Provider Physician Assistant | DX: Z34.91 Encounter for supervision of normal pregnancy, unspecified, first trimester (principal); E07.9 Disorder of thyroid, unspecified | CPT/HCPCS: 84439; 84443; 84702 ==

== ENCOUNTER 2025-09-25 02:02 | Emergency (ER) | payer BC, SELFPAY ==
--- OUTSIDE RECORDS SUMMARY | 2025-09-25 02:04 | XMS_ITS ---
Author Organization [facility] Source Produ ction (ClinicalSummary Clone) Address Unknown Care Team Providers Care Tape Controlled Machine Stitcher Name Role Phone Unavailable Primary Care Physician Unavailab le Results * [UNITY] CARRIER SCREEN Performed by: [employer] Component Value Range Date Sickle Cell Disease/Beta-Thalassemia/Hemoglobino pathies carrier screen NEGATIVE 11/27/2024 08:20 pm UTCAlpha-Thalassemia carrier pdjxewCUQACUZW00/04/2025 08:20 pm UTCCystic Fibrosis carrier umwrjhCKUDBSCH04/04/2025 08:20 pm UTCSpinal Muscular Atrophy carrier screenNEGATIVE 2 SMN1 copies, SNP not uezmjcc8711/27/2024 08:20 pm UTCFor detailed report, see PDFSee PDF11/27/2024 08:20 pm UTC 11/27/2024 08:20 pm UTC Social History Observation Value Start Date End Date
--- OUTSIDE RECORDS SUMMARY | 2025-09-25 02:04 | XMS_ITS | Clinical Summary ---
Author Organization [facility] Address [address] [place] [address] Care Team Providers Care [employer] Team Member Name Role Phone Gregory Cash MD Primary Care Provider Allergies No known active allergies Medications MedicationSigDispense QuantityRefillsLast FilledStart DateEnd DateStatus naproxen (NAPROSYN) 500 mg tablet Indications:Tension headacheTake 1 Tablet (500 mg) by mouth every 12 hours if needed for Pain. 60 Tablet 12/20/2022ctive norethindrone, Contraceptive, (MICRONOR, 28,) 0.35 mg tablet Take 0.35 mg by mouth once daily.01/12/2024ctive ondansetron (ZOFRAN ODT) 4 mg disintegrating tablet Indications:Nausea and vomiting, unspecified vomiting typePlace 1 Tablet (4 mg) on the tongue every 8 hours if needed for Nausea/Vomiting. 30 Tablet 01/17/2024ctive Active Problems No known active problems Resolved Problems ProblemNoted DateDiagnosed DateResolved DateConjunctivitis blfueiitrfp38/03/2013 08/30/2025 Encounters DateTypeDepartmentCare WyhjYkixzqkgkeb99/04/2025 2:30 PM CSTOffice Visit [facility] [address] [phone] Rashmi Marino NP Cough (Started 2 days ago. Accompanied by sneezing.); Throat Problem (Patient states her throat started hurting 2 days ago. ); Pain (Patient states she's had body aches for 2 days, today being the worst.)08/29/20258523Alegjc02/18/2025 - 07/13/2025 2:41 PM CDTEmergency [place] [address] [place] [address] from Last 3 Months Immunizations ImmunizationAdministration DatesNext ZjtZZaW59/07/2006,07/03/2004,04/03/2003, 04/16/2002,02/13/2002Hepatitis A (Peds)06/10/2014Hepatitis B (Peds)04/03/2003, 04/16/2002,02/13/2002Inactivated Polio Qygloof1309/01/2006,04/03/2003,04/16/2002, 02/13/2002MENINGOCOCCAL VACCINE 2 VIAL 2MO-55YO (MENVEO)06/10/2014MMR111/02/2005, 08/20/2003Pneumococcal conj 7-Valent (Prevnar 7)08/20/2003,04/03/2003,02/13/2002 Tdap/06/2025,12/08/2023,06/10/2014Varicella Pzqfwcq5706/10/2014,08/20/2003 Family History Medical HistoryRelationNameCommentsHypertensionMaternal GrandmotherHeart Disease Paternal UncleMigrainesNo Family HistoryRelationNameStatusCommentsMaternal GrandmotherPaternal Uncle Social History Tobacco UseTypesPacks/DayYears UsedDateSmoking Tobacco: NeverPassive Smoke Exposure: YesSmokeless Tobacco: Never Tobacco Cessation:Counseling Given: Yes Comments:mom Alcohol UseStandard Drinks/WeekCommentsNo0 (1 standard drink = 0.6 oz pure alcohol)PHQ-2AnswerDate RecordedPHQ-2 TOTAL TKRMN817lcohol UseAnswer Date RecordedHow often do you have a drink containing alcohol?verage Number of DrinksNot on file08/29/2025Frequency of Binge DrinkingNot on file 08/29/2025Financial Resource StrainAnswerDate RecordedDifficulty of Paying Living ExpensesNot on file09/26/2021ifficulty of Paying Living ExpensesNot on file09/26/2021Interpersonal SafetyAnswerDate RecordedAre you being hit, kicked, pushed or yelled at (see row info)?No2023Interpersonal Safety Abuse 12 - 18Not on file2023Interpersonal Safety Ambulatory VulnerabilityNot on file 2023CommentsNoSex and Gender InformationValueDate RecordedSex Assigned at BirthNot on fileLegal QioXrsbva20/14/2013 7:41 AM CSTGender Identity Not on fileSexual OrientationNot on fileOccupationIndustryJob Start DateJob End DateFMSNot on fileNot on fileNot on file Obstetrics History GravidaParaTermPretermABIABSABEctopicMultipleLivingLive Cnvtty789870SxmcHfaxzzv GATotal LaborLabor/2nd/5weSlurcbAlbWzkwImifYYAEoxZ3V3PmrvHgcyWOAAnciwjj Last Filed Vital Signs Vital SignReadingTime TakenCommentsBlood Pjgospsl595/7808/29/2025 2:42 PM HR ADMINISTRATIVE ASSISTANT Ufshb846108/29/2025 2:42 PM QQAAuwcmotoafi07.9 ??C (98.4 ??F)08/29/2025 2:42 PM CSTRespiratory Ppip975910/02/2024 4:54 AM CSTOxygen Uowvxonchg19%08/29/2025 2:42 PM CSTInhaled Oxygen Concentration--Rbfiye70.8 kg (169 lb 6.4 oz)08/29/2025 2:42 PM RPBOyxttr352.1 cm (5' 5)10/02/2024 4:54 AM CSTBody Mass Index28.19010/02/2024 4:54 AM HR ADMINISTRATIVE ASSISTANT Plan of Treatment Health MaintenanceDue DateLast DoneCommentsHIV for age 15-HPV series for age 9-45 (1 - 3-dose series)2016Chlamydia for age 16-12/09/2016Hepatitis C screening for age 18-7912/14/2019Depression screening for age 12+, 07/03/2021, 07/12/2017, Additional history exists BMI (ht and wt on same day) for age 18+504, 06/06/2023, 02/27/2021OVID-19 vaccine series ( - 2024- season)/10/2020 Influenza Vaccine (#1)2025Pap test for age 21-650/704/ Tetanus odvwsfk85/10/481189/06/2025, 12/08/2023, 06/10/2014Hepatitis B series for 19+Homaklosz61/09/2003, 04/16/2002, 02/13/2002Pneumococcal series for age 6-49Aged Out08/20/2003, 04/03/2003, 02/13/2002No longer eligible based on patient's age to complete this topic Procedures Procedure NamePriorityDate/TimeAssociated DiagnosisCommentsHCG BETA QUANT,KCWDVEMAKRrptshy82/04/2025 4:18 PM HR ADMINISTRATIVE ASSISTANT Positive urine test (HC) HBCFTFVLQ83/04/2025 3:12 PM HR ADMINISTRATIVE ASSISTANT Menstrual periods irregular STREP A SZCENMJ26/04/2025 2:50 PM HR ADMINISTRATIVE ASSISTANT Sore throat COVID/FLU/RSV AZBXTRorpyzm79/04/2025 2:50 PM HR ADMINISTRATIVE ASSISTANT Sore throat Acute cough Body aches THROAT RAPID STREP A WITH FBPGFMTYFT37/04/2025 2:50 PM HR ADMINISTRATIVE ASSISTANT Sore throat SLUDGE MILL OPERATOR THIN PREP PAP SCREEN RIQOZATqltnaz10/18/2024 8:43 AM CDT CHLAMYDIA TRACH COWOALlyslsm56/16/2017 11:54 AM CDT Screening for chlamydial disease from Last 3 Months or Most Recently Relevant to Health Maintenance Results * HCG BETA QUANT, (08/29/2025 4:18 PM HR ADMINISTRATIVE ASSISTANT)ComponentValueRef RangeTest MethodAnalysis TimePerformed AtPathologist SignatureHCG BETA QUANT, 70,601mIU/mL08/29/2025 5:43 PM CSTPR[facility] LABORATORYSpecimen (Source)Anatomical Location / LateralityCollection Method / VolumeCollection TimeReceived TimeBloodBLOOD SPECIMEN / UnknownQuest Collect / Unknown 08/29/2025 4:18 PM CST08/29/2025 4:18 PM HR ADMINISTRATIVE ASSISTANT Narrative [facility] - 08/29/2025 5:43 PM HR ADMINISTRATIVE ASSISTANT Expected Value for Healthy Non- premenopausal women <5.3mIU/mL FOR GESTATIONAL ASSESSMENT-See Range Table Below Weeks of gestation hCG mIU/mL 3 weeks gestation (5.8 - 71.2) 4 weeks gestation (9.5 - 750) 5 weeks gestation (217 - 7138) 6 weeks gestation (158 - 31,795) 7 weeks gestation (3,697 - 163,563) 8 weeks gestation (32,065 - 149,571) 9 weeks gestation (63,803 - 151,410) 10 weeks gestation (46,509 - 186,977) 12 weeks gestation (27,832 - 210,612) 14 weeks gestation (13,950 - 62,530) 15 weeks gestation (12,039 - 70,971) 16 weeks gestation (9,040 - 56,451) 17 weeks gestation (8,175 - 55,868) 18 weeks gestation (8,099 - 58,176) Biotin supplements may cause clinically significant interference for this test assay. ??If interference is suspected, it is strongly recommended that biotin is discontinued for at least one week prior to retesting. Authorizing ProviderResult TypeResult StatusBimala Marino NPCHEMISTRYFinal ResultPerforming OrganizationAddressCity/State/ZIP CodePhone Number [facility] [address] [place] [address] * (ABNORMAL) URINE (08/29/2025 3:12 PM HR ADMINISTRATIVE ASSISTANT)ComponentValueRef RangeTest MethodAnalysis TimePerformed AtPathologist SignaturePREGNANCY,URINEPositive (Positive)Whkjcfcg09/04/2025 3:46 PM CSTPROVID[facility] Comment:Is Rh typing necessary?Specimen (Source)Anatomical Location / LateralityCollection Method / VolumeCollection TimeReceived TimeUrineURINE SPECIMEN / UnknownNon-Blood / Flmdpdm8608/29/2025 3:12 PM CST08/29/2025 3:27 PM HR ADMINISTRATIVE ASSISTANT Narrative Authorizing ProviderResult TypeResult StatusRashmi Marino NPURINEFinal Result Performing OrganizationAddressCity/State/ZIP CodePhone Number [facility] [address] [place] [address] * COVID/FLU/RSV PANEL (08/29/2025 2:50 PM HR ADMINISTRATIVE ASSISTANT)ComponentValueRef RangeTest Method Analysis TimePerformed AtPathologist SignatureCOVID 19 [facility] TawsnfwnFeenhubm30/04/2025 11:32 PM CSTST. [facility]IN[facility] LABORATORYComment:All PCR tests are subject to false negative result due to variability in viral load and collection technique. A negative result does not rule out a SARS-CoV-2 infection. Clinical correlation required.INFLUENZA A PCR Bclyqpdt03/04/2025 11:32 PM [facility] INFLUENZA B MDGXckucwpl63/04/2025 11:32 PM [facility] LABORATORYRespiratory Syncytial KziavWcimvtxu60/04/2025 11:32 PM CSTST. [facility]INIC [facility] LABORATORYSpecimen (Source)Anatomical Location / LateralityCollection Method / VolumeCollection TimeReceived TimeSwabSPECIMEN FROM NASOPHARYNGEAL STRUCTURE / UnknownNon-Blood / Spvhrse1708/29/2025 2:50 PM CST08/29/2025 2:57 PM HR ADMINISTRATIVE ASSISTANT Narrative Authorizing ProviderResult TypeResult Vee Marino NPMICROBIOLOGYFinal ResultPerforming OrganizationAddressty/State/ZIP CodePhone Number [facility] [address] [place] [address], * STREP A PCR (08/29/2025 2:50 PM HR ADMINISTRATIVE ASSISTANT)ComponentValueRef RangeTest MethodAnalysis TimePerformed AtPathologist SignatureGROUP A TWTJVSiskgxlk09/04/2025 4:21 PM CSTPROVID[facility] LABORATORYSpecimen (Source)Anatomical Location / LateralityCollection Method / VolumeCollection TimeReceived TimeThroatSPECIMEN FROM THROAT / UnknownNon-Blood / Jeljddi5308/29/2025 2:50 PM CST08/29/2025 3:15 PM HR ADMINISTRATIVE ASSISTANT Narrative Authorizing ProviderResult TypeResult StatusRashmi Marino NPMICROBIOLOGYFinal ResultPerforming OrganizationAddressCity/State/ZIP CodePhone Number [facility] [address] [place] [address] * THROAT RAPID STREP A WITH REFLEX (08/29/2025 2:50 PM HR ADMINISTRATIVE ASSISTANT)ComponentValueRef RangeTest MethodAnalysis TimePerformed AtPathologist SignatureSTREP A ANTIGEN Qimnrlyz49/04/2025 3:15 PM CSTPROVIDENCE T[facility] LABORATORYComment:PCR to follow.Specimen (Source)Anatomical Location / LateralityCollection Method / VolumeCollection TimeReceived TimeThroatSPECIMEN FROM THROAT / UnknownNon- Blood / Ycnazul8108/29/2025 2:50 PM CST08/29/2025 2:57 PM HR ADMINISTRATIVE ASSISTANT Narrative Authorizing ProviderResult TypeResult StatusBimala Marino NPMICROBIOLOGYFinal ResultPerforming OrganizationAddressCity/State/ZIP CodePhone Number [facility] [address] [place] [address] * (ABNORMAL) SLUDGE MILL OPERATOR THIN PREP PAP SCREEN IMAGED (01/12/2024 8:43 AM CDT)Component ValueRef RangeTest MethodAnalysis TimePerformed AtPathologist SignatureCase ReportGynecologic Cytology Report ? Case: [id number] ? Authorizing Provider: ??Robina Lombardi PA-C ?Collected: ? 01/12/2024 0843 ? Ordering Location: ? [facility] ?Received: ?01/13/2024 0837 ? First Screen: ?Jasmin, Maite ? Pathologist: ? Jeremy Farnsworth MD ? Specimen: ?SLUDGE MILL OPERATOR ThinPrep Vial Screening, Cervical ? 01/25/2024 4:21 PM [facility] INTERPRETATION/RESULTLOW GRADE SQUAMOUS INTRAEPITHELIAL LESION (LSIL)(A)(none) 01/25/2024 4:21 PM [facility] at 1621 CDTSPECIMEN ADEQUACY Satisfactory for evaluation No endocervical component seen01/25/2024 4:21 PM [facility]- CENTRAL LABORATORYHPV REQUESTHPV not vzgrtnovt12/01/2024 4:21 PM [facility]-CENTRAL LABORATORYDate of LMP01/25/2024 4:21 PM [facility]-CENTRAL LABORATORYComment:unkLast Pap Date 4:21 PM [facility]-CENTRAL LABORATORYLast Pap ResultLSIL 01/25/2024 4:21 PM [facility]-CENTRAL LABORATORYAbnormal Pap or Hitchcock Bx in last 5 ahlwtQz8601/25/2024 4:21 PM [facility]-CENTRAL LABORATORYMenstrual StatusRegular Qbabzli7301/25/2024 4:21 PM [facility]-CENTRAL LABORATORYColp Bx Done SdwkoFb2701/25/2024 4:21 PM [facility]-CENTRAL LABORATORYAdditional Wngcreittcx43/01/2024 4:21 PM CDT [facility]-CENTRAL LABORATORYComment: Interpreted at [facility], Central Laboratory - [address], [place] [address] Automated ZlbohhZrnfcztiqm20/01/2024 4:21 PM [facility] LABORATORYComment:Specimen processed successfully by automated ramp service agent device, [employer] System, [employer]NoteThe pap test is a screening technique, not a diagnostic procedure. It is used primarily to screen for squamous cancers and precursor lesions. Published studies have shown that it is subject to both false negative and false positive results. The pap test should not be used as the sole means to diagnose or exclude pre-malignant and malignant lesions. 01/25/2024 4:21 PM [facility] LABORATORYSpecimen (Source)Anatomical Location / LateralityCollection Method / VolumeCollection TimeReceived TimeOther (Cervical)01/12/2024 8:43 AM CDT01/13/2024 8:37 AM CDT Narrative Authorizing ProviderResult TypeResult StatusApril Celestino Lombardi PA-C PATHOLOGY/CYTOLOGYFinal ResultPerforming OrganizationAddressCity/State/ZIP Code Phone Number [facility] [address] [place] [address], * CHLAMYDIA TRACH PROBE (12/09/2016 11:54 AM CDT)ComponentValueRef RangeTest MethodAnalysis TimePerformed AtPathologist SignatureCHLAMYDIA PROBENegative 12/10/2016 12:52 PM [facility]OR[facility]YSpecimen (Source)Anatomical Location / LateralityCollection Method / VolumeCollection TimeReceived TimeOtherURINE SPECIMEN / UnknownNon-Blood / Njleaib5012/09/2016 11:54 AM CDT12/09/2016 11:54 AM CDT Narrative Authorizing ProviderResult TypeResult StatusJennric Thomas PAMICROBIOLOGY Final ResultPerforming OrganizationAddressCity/State/ZIP CodePhone Number [facility] [address] [place] [address], from Last 3 Months or Most Recently Relevant to Health Maintenance Insurance * Guarantor: Heaven Ferrara TypeRelation to PatientDate of PhoneBilling AddressPersonal/RjzidqUhuw91/20/[address] [place] [address] * Guarantor: Katie Ferrara TypeRelation to PatientDate of PhoneBilling AddressPersonal/LhkqgfGxfplw47/04/1975 [address] [address] Care Teams Team MemberRelationshipSpecialtyStart DateEnd Date Gregory Cash MD PCP - Gqmpjph32/20/09
--- OUTSIDE RECORDS SUMMARY | 2025-09-25 02:04 | XMS_ITS | Clinical Summary ---
Author Organization [facility] Address [address] [place] [address] Care Team Providers Care Dispatcher Service Chief Name Role Phone Gregory Cash MD Primary Care Provider [phone] Source Comments You are receiving this document as you are listed as the primary care provider,follow-up provider, or the patient has been referred to you for consultation.This is in compliance with the Medicare andMedicaid EHR Incentive Program,which states Providers who transition their patient to another setting of careor provider of care or refers their patient to another provider of care shouldprovide summary care record for each transition of care or referral. [facility] Allergies No known active allergies Social History Tobacco UseTypesPacks/DayYears UsedDateSmoking Tobacco: Never Assessed CommentsUnknownSex and Gender InformationValueDate RecordedSex Assigned at Not on fileLegal BobMmjrvc17/13/2023 3:22 AM CSTGender IdentityNot on fileSexual OrientationNot on file Last Filed Vital Signs Vital SignReadingTime TakenCommentsBlood Vkvgjqbd451/77010/08/2022 4:51 AM BOOK RETAILER Cdxbg003210/08/2022 4:51 AM LLZQrgscnmpyvm39.8 ??C (98.2 ??F)10/08/2022 3:29 AM CSTRespiratory Lyyg465910/08/2022 4:51 AM CSTOxygen Ilwckyfwca23%10/08/2022 4:51 AM CSTInhaled Oxygen Concentration--Ujjykh58.4 kg (120 lb)10/08/2022 3:29 AM BOOK RETAILER Chxgqj280.6 cm (5' 6)10/08/2022 3:29 AM CSTBody Mass Index19.37010/08/2022 3:29 AM BOOK RETAILER Plan of Treatment Health MaintenanceDue DateLast DoneCommentsCervical Cancer Screening Due 2001Hep C Screening (Preventive Services)2001MenB Immunization Ueybnwdhtz31/20/2002HepA Vaccine (2 of 2 - 2-dose series)HPV Vaccine (1 - 3-dose series)2016HIV Screening (Preventive Services) 2017Adult Preventive Visit12/14/2019HepB Vaccine (1)2020hlamydia /2DTaP/Tdap/Td Vaccine (7 - Tdap), 09/01/2006, 07/03/2004, Additional history existsCOVID-19 Vaccine (1 - 2024- season)2025Influenza Vaccine (#1)2025Zoster/Shingles Vaccine (1 of 2)2Pneumococcal VaccineAged Out08/20/2003, 04/03/2003, 02/13/2002No longer eligible based on patient's age to complete this topicIPV (Polio) Vaccine Jrbmvjotr97/07/2006, 04/03/2003, 04/16/2002, Additional history existsMCV4 VaccineAged Out06/10/2014No longer eligible based on patient's age to complete this topicHib VaccineAged OutNo longer eligible based on patient's age to [place] [phone] * Guarantor: Heaven Ferrara TypeRelation to PatientDate of PhoneBilling AddressPersonal/SfgnpnXoqe37/20/2002 [address] [place] [address] Care Teams Team MemberRelationshipSpecialtyStart DateEnd Date Gregory Cash MD [address] [facility] [place] [address] [facility]
--- OUTSIDE RECORDS SUMMARY | 2025-09-25 02:04 | XMS_ITS ---
Author Organization [facility] Source Produ ction (ClinicalSummary Clone) Address Unknown Care Team Providers Care Scroll Saw Operator Name Role Phone Unavailable Primary Care Physician Unavailab le Results * [UNITY] ANEUPLOIDY NIPT Performed by: [facility] [employer] Component Value Range Date Fraction 9.2% 11/22/2024 11:22 pm DXY39n51.2 MicrodeletionLOW RISK <1 in , 11:22 pm UTCSex Chromosome AneuploidyNOT ZBNJSMAH79/27/2025 11:22 pm UTCMonosomy XLOW RISK <1 in , 11:22 pm UTCTrisomy 13LOW RISK <1 in 10,000 11/22/2024 11:22 pm UTCTrisomy 18LOW RISK <1 in , 11:22 pm UTC Trisomy 21LOW RISK <1 in , 11:22 pm UTCFetal UlfEQTH8311/22/2024 11:22 pm UTCPregnancy SgxltzgivEYFIMLARP55/27/2025 11:22 pm UTCFor detailed report, see PDFSee PDF11/22/2024 11:22 pm UTC11/22/2024 11:22 pm UTC Social History Observation Value Start Date End Date
[2025-09-25 02:05] VITALS: BP 137/84; PULSE 78; RESP 16; TEMP 36.6; O2SAT 98; BMI 27.4
--- NOTE | 2025-09-25 02:36 | ED.GENADULT ---
HPI - General Adult General Chief complaint: Vaginal Bleeding Stated complaint: status-post , bleeding/light headed Time Seen by Provider: 09/25/25 02:13 Source: patient Mode of arrival: ambulatory Limitations: no limitations History of Present Illness HPI narrative: 24-year-old female 10 weeks presents to the emergency department for evaluation of heavy bleeding, lower abdominal cramping, dizziness and nausea. She was 9 weeks 6 7th weeks gestation on the when she saw her Ob provider. She was wishing for an elective termination. She took the prescribed cervical ripening agent on the night of the and then she took the for Cytotec tablets tonight at about 9:30 p.m. as prescribed. She started having bleeding within about 45 minutes and increased cramping. She has continued to have which she feels like is heavy bleeding. She is using an absorbent underwear and soaked through that over the course of about 3 hours. She has been switched to a typical maxi pad here in triage. She is having some class and shows me these they are dime to nickel sized. She has not passed any tissue. She feels nauseated and slightly dizzy. She is ambulating to and from the bathroom without significant difficulty. She just feels like things are constantly leaking out. Lower abdominal cramping noted, not improving with single dose of ibuprofen at home. She is not sure of her blood type but does not believe that she received any special precautions in her last . She delivered via at 36 weeks just 4 months ago. This was an unplanned . I reviewed the records and see that she did have pretty significant anemia in the last . Blood type was A positive. Antibody screen negative. She states that otherwise she does have a history of hypothyroidism, takes levothyroxine. She has no known drug allergies. ROS is notable for the bleeding and cramping as described above, otherwise denies times 12 systems. Related Data Home Medications ?Medication ?Instructions ?Recorded ?Confirmed docosahexaenoic acid 200 mg 200 mg PO DAILY 11/14/24 09/23/25 capsule ( DHA) Previous Rx's ?Medication ?Instructions ?Recorded ibuprofen 800 mg tablet 800 mg PO Q8H PRN pain #10 tabs 09/23/25 misoprostol 200 mcg tablet 800 mcg (4 x 200 mcg) PO ONCE #4 09/23/25 (Cytotec) tabs ondansetron 4 mg disintegrating 4 mg PO Q8H PRN nausea and 09/23/25 tablet vomiting #4 tabs levothyroxine 50 mcg tablet 50 mcg PO QDAY #60 tabs 09/24/25 Allergies Allergy/AdvReac Type Severity Reaction Status Date / Time No Known Drug Allergies Allergy Verified 09/23/25 16:43 [facility] Medical History Anemia due to acute blood loss ?D62 - Acute posthemorrhagic anemia (ICD-10) Preeclampsia, severe ?O14.10 - Severe pre-eclampsia, unspecified trimester (ICD-10) Vaginal bleeding, abnormal ?N93.9 - Abnormal uterine and vaginal bleeding, unspecified (ICD-10) Nexplanon removal ?Z30.46 - Encounter for surveillance of implantable subdermal contraceptive (ICD-10) Surgical History Status post primary low transverse section (05/15/25) ?Z98.891 - History of uterine scar from previous surgery (ICD-10) Family History Other Endometriosis Social History Narrative: Patient works at [employer]. Single. Nonsmoker. Alcohol use: 1-2 per week. No illicit drug use. What is your current living situation?: I presently have a place to live Problems where you live: no known problems In the past 12 months, utilities in danger of being shut off: no In past 12 months, lack of transportation kept you from medical appts, meetings, work, or getting things needed for daily living: no In the past 12 mos, have been you worried that your food would run out before you had money to buy more?: never true In the past 12 mos, the food you bought just didn't last and you didn't have money to buy more?: never true Smoking Status: Never smoker Do you use any of these nicotine containing products: Vaping Products Second hand tobacco smoke exposure: No How often do you have a drink containing alcohol: never AUDIT-C Alcohol total score: 0 Non-prescribed substance use: former substance user How often does anyone, including family, friends and others, physically hurt you: never How often does anyone, including family, friends and others, insult or talk down to you: never How often does anyone, including family, friends and others, threaten you with harm: never How often does anyone, including family, friends and others, scream or curse at you: never Exam Const: Vital Signs, click to edit/add: Vital Signs - 24 hr 09/25/25 02:05 09/25/25 03:25 Temperature 98 F Pulse Rate [Pulse Oximeter] 78 80 Respiratory Rate 16 19 Blood Pressure [Ri ght Upper Arm] 137/84 123/89 Pulse Oximetry 98 99 Oxygen Delivery Me thod Room Air Room Air Documenting provider has reviewed patient's vital signs: yes Other: Mild distress, appears slightly pale. Vital show no hypotension or tachycardia. HENMT: Common normals: normocephalic, moist oral mucous membranes and oropharynx normal Head and scalp: normocephalic Face and sinus: normal facial exam Mouth: oral and palatal mucosa normal Eye: Common normals: conjunctivae normal General eye: normal appearance of both eyes Conjunctiva: conjunctiva(e) normal Resp: Common normals: normal respiratory effort and clear to auscultation bilaterally Effort & inspection: able to speak in complete sentences Auscultation: clear to auscultation bilaterally Cardio: Common normals: regular rate, regular rhythm, S1 normal heart sound, S2 normal heart sound and no murmurs Rate: regular rate Rhythm: regular rhythm Heart sounds: S1 normal and S2 normal GI: Common normals: Normal to inspection, nondistended, normoactive bowel sounds present, soft to palpation, no hepatosplenomegaly and no masses Palpation: soft and no hepatosplenomegaly : Other: Cervix open about 2 cm on pelvic exam. Dime to nickel size clots. Moderate bleeding but not severe. Fundus not enlarged on exam, nontender to palpation. Extremity: Common normals: normal to inspection and normal capillary refill Psych: Common normals: thought process normal Attitude: engaged Thought process: normal thought process Attention/concentration: attention grossly intact Memory/cognition: memory grossly intact Insight: insight good Judgement: judgment good Skin: Narrative: Slightly pale but normal capillary refill. No rash. Course Course ED Course: 24-year-old female presenting at 10 weeks gestation with termination of , bleeding and cramping. Symptoms are not unexpected but I am concerned with her history of prior anemia and how soon and suddenly her bleeding started with these clots and also the fact that she has still not passed the tissue could set her up for excessive blood loss. Would like to obtain a quant level, have confirmed her Rh status blood type will obtain CBC. Will give 4 mg of Zofran, 1 L of normal saline and 15 of Toradol. Counseled patient that this of course is not ideal in but if her desire is for termination and that it does look like things are progressing that way, the Toradol does seem appropriate, she is in agreement. Will also give hydrocodone 1 tablet and watch clinically for the next few hours to see how things go. If any signs of severe bleeding, hypotension, tachycardia or other complication, consider OB consult. Reevaluation(s) Time of Reevaluation #1: 03:16 Reevaluation #1: Vitals remained stable. No significant tachycardia or hypotension. IV fluids are infusing. She get the Toradol and a dose of hydrocodone about 20 minutes ago. She is reporting much improvement in her cramping but she does look quite a bit more comfortable. She says that the bleeding feels about the same. No certain passage of any tissue yet. I will give 1 more dose of hydrocodone and then lets reexamine about a 1/2 hour. If the bleeding has not slowed, consult OB. Blood work is thankfully reassuring. Hemoglobin is 12. Time of Reevaluation #2: 04:00 Reevaluation #2: Repeat vaginal examination showing that the bleeding has started to slow down. There was only 1 dime-sized clot and the pad that was placed upon arrival an hour and a half ago is moderately, but not fully soaked. I do spot tissue right at the cervical opening that does appear consistent with placental tissue. This is carefully teased away from the cervix with a large Q-tip. This really was almost entirely in the vaginal vault and only a small portion of what was likely the remaining amniotic sac was at the cervical opening. The cervix actually looks like it is closed down somewhat since my initial exam and is less than a cm open now. I do examine the tissue more closely after the speculum is removed and do confirm that it appears consistent with placental tissue. I do not see any tissue and discussed this with patient. She thinks she did likely passed that in the shower as I show her the shiny material from the sac and explain how the tissue would have looked more like that then a clot. She had a couple of dime-sized clots in the vault but overall improving. She does report that the pain is starting to improve somewhat. Time of Reevaluation #3: 04:35 Reevaluation #3: Repeat examination of the patient's pad shows marked improvement in her level of bleeding. She still having some cramping but it is much more tolerable now. I do press on the fundus and we do not see any more clotting or gushing of blood. Vitals have remained stable. She has finished her IV infusion in the labs are all quite reassuring. I did do a quant level just so we can track this if it is to be needed but it is highly unlikely to be necessary. Patient is still considering which she will use for contraception. She will follow-up with her primary care team to discuss this further. At this time she is feeling well enough to discharge. I discussed Tylenol and ibuprofen. The hydrocodone that she was given will last about 6 hours, 2 total doses were given. She needs to rest for the next 48 hours. Alarm symptoms reviewed that would warrant further ED re-evaluation. At this point the bleeding should continue to slow since that it does appear that the placenta tissue has been expelled. Any return of heavy bleeding or clots would be unexpected and would warrant re-evaluation. She verbalizes understanding and agreement. Vital Signs Vital signs: Initial Vital Signs Temperature 98 F 09/25/25 02:05 Temperature Source Temporal Artery Scan 09/25/25 02:05 Pulse Rate 78 09/25/25 02:05 Respiratory Rate 16 09/25/25 02:05 Blood Pressure 137/84 09/25/25 02:05 Blood Pressure Mean 101 09/25/25 02:05 Blood Pressure Position Sitting 09/25/25 02:05 Pulse Oximetry 98 09/25/25 02:05 Oxygen Delivery Method Room Air 09/25/25 02:05 Vital Signs Temperature 98 F 09/25/25 02:05 Pulse Rate 78 09/25/25 02:05 Respiratory Rate 16 09/25/25 02:05 Blood Pressure 137/84 09/25/25 02:05 Pulse Oximetry 98 09/25/25 02:05 Oxygen Delivery Method Room Air 09/25/25 02:05 Temperature 98 F 09/25/25 02:05 Pulse Rate 80 09/25/25 03:25 Respiratory Rate 19 09/25/25 03:25 Blood Pressure 123/89 09/25/25 03:25 Pulse Oximetry 99 09/25/25 03:25 Oxygen Delivery Method Room Air 09/25/25 03:25 Medications Administered Medications: Discontinued Medications Generic Name Dose Route Start Last Admin Trade Name Freq PRN Reason Stop Dose Admin Hydrocodone Bitart/Acetaminophen 1 tab 09/25/25 02:34 09/25/25 02:45 Hydrocodone-Acetamin 5-325 Mg 1 Tab PO 09/25/25 02:35 1 tab ONCE ONE Administration Hydrocodone Bitart/Acetaminophen 1 tab 09/25/25 03:16 09/25/25 03:23 Hydrocodone-Acetamin 5-325 Mg 1 Tab PO 09/25/25 03:17 1 tab ONCE ONE Administration Sodium Chloride 1,000 mls @ 1,000 mls/hr 09/25/25 02:35 09/25/25 04:07 0.9 % Sodium Chloride 1000 Ml IV 09/25/25 03:34 Infused .Q1H BRUCE Infusion Ketorolac Tromethamine 15 mg 09/25/25 02:34 09/25/25 02:45 Ketorolac 15 Mg/Ml Inj IVP 09/25/25 02:35 15 mg ONCE ONE Administration Ondansetron HCl 4 mg 09/25/25 02:34 09/25/25 02:45 Ondansetron 2 Mg/Ml Inj IVP 09/25/25 02:35 4 mg ONCE ONE Administration Medical Decision Making Lab Data Lab results reviewed: Yes I reviewed the patient's lab results Lab results narrative: Hemoglobin 12. , much improved from last . HCG level very high, as would be expected. This was only drawn in case we need to track it. Labs: Lab Results 09/25/25 Range/Units 02:40 WBC 13.07 H (4.50-11.00) K/uL RBC 4.52 (4.00-5.20) m/uL Hgb 12.0 (12.0-16.0) gm/dL Hct 36.6 (33.0-51.0) % MCV 81 (80-100) fL MCH 27 (26-34) pg MCHC 33 (32-36) gm/dL RDW Coeff of Leonid 14.5 (11.5-15.5) % Plt Count 289 (140-440) K/uL Neut % (Auto) 78.2 H (42.0-72.0) % Lymph % (Auto) 13.2 L (20-44) % Canadian % (Auto) 6.7 (0.0-11.0) % Eos % (Auto) 1.4 (0.0-7.0) % Baso % (Auto) 0.3 (0.0-3.0) % Neut # (Auto) 10.20 H (1.7-7.0) K/uL Lymph # (Auto) 1.70 (0.90-2.90) K/uL Canadian # (Auto) 0.90 (0.00-0.90) K/UL Eos # (Auto) 0.20 (0.00-0.50) K/uL Baso # (Auto) 0.00 (0.00-0.30) K/uL Abs Immat Gran (auto) 0.00 (0.00-0.30) K/uL Imm/Tot Granulo (auto) 0.2 % HCG, Quant 908220.00 mIU/mL Discharge Plan Discharge Clinical Impression: Termination of Patient Disposition: Home w/ Parent or Adult Condition: Improved Instructions: Miscarriage (ED) Additional Instructions: As we discussed, I suspect that you pass the tissue prior to arrival in the ED but the bleeding will still be very heavy with lots of cramping and even clots until the placenta has passed. I have good evidence that that was the placenta that I was able to collect from your cervical opening. For most, the pain does get quite a bit better from this point forward. Your bleeding should be more comparable to a heavy period for the next few days. It is okay to use Tylenol and or ibuprofen for the cramping. You were given hydrocodone here in the emergency room. This will last for about 6 hours. This should get you through the worst of the cramping. Thing should be doing much better by mid morning. If you have lingering concerns or return of those heavy blood clots again, please contact her Ob provider or come back to the ED. It is very important that you rest for the next 8 hours as any unnecessary activity will cause increased blood flow to the uterus and increased bleeding. Drink lots of fluids and of course watch out for any signs of high fever, feeling faint or other complication. You should be able to return to typical duty on . Activity Level: No strenuous activity Discharge Diet: Regular Prescriptions: No Action DHA 200 mg capsule 200 mg PO DAILY misoprostol [Cytotec] 200 mcg tablet 800 mcg PO ONCE Qty: 4 0RF Rx Instructions: 4 tablets buccally ibuprofen 800 mg tablet 800 mg PO Q8H PRN (Reason: pain) Qty: 10 0RF ondansetron 4 mg tablet,disintegrating 4 mg PO Q8H PRN (Reason: nausea and vomiting) Qty: 4 0RF levothyroxine 50 mcg tablet 50 mcg PO QDAY Qty: 60 0RF Follow Up/Referrals: Gregory Cash MD [Primary Care Provider, Family Practice] Stand Alone Forms: [email or web address] Info Instructions
[2025-09-25] MEDS: HYDROCODONE-ACETAMIN 5-325 MG 1 TAB PO ×2 (02:45→03:23)
[2025-09-25] MEDS: ONDANSETRON 2 MG/ML inj 4 MG IVP (02:45)
[2025-09-25 02:49] LABS: Hematocrit* 36.6 % (33.0-51.0); Hemoglobin* 12.0 gm/dL (12.0-16.0); Immature Granulocytes Pct Auto 0.2 %; Mean Corpuscular HGB Conc 33 gm/dL (32-36); Mean Corpuscular Hemoglobin 27 pg (26-34); Mean Corpuscular Volume 81 fL (80-100); RDW Coefficient of Variation % 14.5 % (11.5-15.5); Red Blood Count* 4.52 m/uL (4.00-5.20); White Blood Count* 13.07 K/uL (4.50-11.00)
[2025-09-25 02:50] LABS: Immature Granulocytes Abs Auto 0.00 K/uL (0.00-0.30); Lymphocytes Absolute Auto 1.70 K/uL (0.90-2.90)
[2025-09-25 02:51] LABS: Slide Review Reflex No
[2025-09-25 03:25] VITALS: BP 123/89; PULSE 80; RESP 19; O2SAT 99
== END 2025-09-25 05:01 | disposition home or self-care (01) ==
PROVIDERS: Emergency Provider Family Medicine; PCP Family Medicine
DX: D62 Acute posthemorrhagic anemia (principal); O03.4 Incomplete spontaneous abortion without complication
CPT/HCPCS: 36415; 84702; 85025; 96374; 96375; 99284; 99285; A9270; J1885; J2405; J7030